=== PATIENT | female | born 1970 | race Caucasian/White ===

== ENCOUNTER → 2019-05-30 15:31 | Outpatient (CLI) | payer OTHER, SELFPAY ==
[2019-05-30 16:04] LABS: Hematocrit 40.3 % (36-46); Hemoglobin 14.2 g/dL (12.0-16.0); Mean Corpuscular HGB Conc 35.2 % (30-36); Mean Corpuscular Hemoglobin 35.9 PG (26-34); Platelet Count 246 X10^3/uL (150-400); Red Blood Cell Count 3.95 X10^6/uL (4.0-5.2); Red Cell Distribution Width 13.3 % (11.6-14.8); White Blood Cell Count 9.4 X10^3/uL (4.5-11.0)
[2019-05-30 16:33] LABS: Alanine Aminotransferase 46 IU/L (9-52); Albumin 4.8 g/dL (3.5-5.0); Albumin Globulin Ratio 1.3 (1.0-2.8); Alkaline Phosphatase 163 U/L (38-126); Aspartate Aminotransferase 84 IU/L (14-36); Blood Urea Nitrogen 11 mg/dL (7-17); Carbon Dioxide 26 mmol/L (22-32); Chloride 95 mmol/L (98-107); Cholesterol 224 mg/dL (140-199); Estimated Glomerular Filt Rate > 60.0 mL/min (>60); Globulin 3.7 g/dL (1.7-4.1); Glucose 94 mg/dL (70-100); HDL Cholesterol 57 mg/dL (40-60); HEMOLYSIS 41 (0-50); LDL Cholesterol Calculated 137 mg/dL (<100); Potassium 4.1 mmol/L (3.4-5.1); Sodium 137 mmol/L (137-145); Total Protein 8.5 g/dL (6.3-8.2); Triglycerides 152 mg/dL (35-150)
[2019-05-30 17:08] LABS: TSH w/ Reflex to FT4 2.66 uIU/mL (0.47-4.68)
== END ==
PROVIDERS: PCP Nurse Practitioner Family; Visit Provider Nurse Practitioner Family
DX: Z00.00 Encounter for general adult medical examination without abnormal findings (principal); L65.9 Nonscarring hair loss, unspecified; R60.0 Localized edema; Z13.6 Encounter for screening for cardiovascular disorders
CPT/HCPCS: 36415; 80053; 80061; 84443; 85027

== ENCOUNTER 2019-10-10 06:31 | Emergency (ER) | payer OTHER, MEDICAID, SELFPAY ==
[2019-10-10] VITALS (9 sets, daily range): BP systolic 137–164; BP diastolic 76–98; PULSE 89–108; RESP 11–21; TEMP 36.7; O2SAT 94–98; BMI 24.3
--- NOTE | 2019-10-10 06:45 | PC.NURSE ---
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
--- NOTE | 2019-10-10 06:46 | PC.NURSE ---
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
[2019-10-10 07:01] LABS: Add Manual Diff / Slide Review NO; Basophils Absolute Auto 0 /uL (0-100); Basophils Percent Auto 0.6 % (0-2); Eosinophils Absolute Auto 100 /uL (0-450); Eosinophils Percent Auto 1.3 % (2-4); Hematocrit 37.5 % (36-46); Hemoglobin 13.2 g/dL (12.0-16.0); Lymphocytes Absolute Auto 1500 /uL (1100-4500); Lymphocytes Percent Auto 18.7 % (25-40); Mean Corpuscular HGB Conc 35.3 % (30-36); Mean Corpuscular Hemoglobin 36.9 PG (26-34); Mean Corpuscular Volume 104.4 fL (80-100); Monocytes Absolute Auto 500 /uL (0-900); Monocytes Percent Auto 6.7 % (3-14); Neutrophils Absolute Auto 5900 /uL (1500-7000); Neutrophils Percent Auto 72.7 % (50-75); Platelet Count 255 X10^3/uL (150-400); Red Blood Cell Count 3.59 X10^6/uL (4.0-5.2); Red Cell Distribution Width 14.8 % (11.6-14.8); White Blood Cell Count 8.1 X10^3/uL (4.5-11.0)
--- NOTE | 2019-10-10 07:02 | ED_ITS ---
HPI - Neuro Symptoms/Deficit <Jacques Hull DO - Last Filed: 10/10/19 07:06> General Chief Complaint: Neuro Symptoms/Deficit Stated Complaint: facial paralysis Time Seen by Provider: 10/10/19 06:42 Source: patient Mode of arrival: Ambulatory Limitations: no limitations History of Present Illness HPI Narrative: 49-year-old female here for evaluation of left-sided facial droop. States that symptoms started approximately 0400 hours last evening. She was sitting on the couch. She thought that she had tingling around the left side of her mouth. She went looked in the mere noticed that the left side of her face was drooping. She feels like it is slightly improved in severity since last evening however she thinks that it is moving up to her left eye. No vision changes. No other neurologic symptoms. Has never had anything like this in the past. No rashes. Has not tried anything for symptoms prior to arrival On Anticoagulants: No Related Data Home Medications Medication Instructions Recorded Confirmed ibuprofen 800 mg tablet 800 mg PO DAILY PRN tab 04/27/19 04/27/19 multivitamin with minerals 1 tab PO DAILY 04/27/19 04/27/19 Previous Rx's Medication Instructions Recorded lisinopril 20 mg tablet 20 mg PO DAILY #90 tab 10/04/19 Allergies Allergy/AdvReac Type Severity Reaction Status Date / Time No Known Allergies Allergy Uncoded 04/27/19 15:40 Review of Systems <Jacques Hull DO - Last Filed: 10/10/19 07:06> Constitutional Constitutional: Denies fever(s), Denies headache(s) and Denies weakness Eyes Eyes: Denies blurry vision, Denies change in vision, Denies diplopia and Denies loss of vision ENT Ears, Nose, Mouth, and Throat: Denies vertigo, Denies dizziness, Denies headache(s), Denies disequilibrium, Denies sinus pressure and Denies sore throat Cardiovascular Cardiovascular: Denies chest pain, Denies palpitations and Denies dyspnea Respiratory Respiratory: Denies cough and Denies dyspnea Gastrointestinal Gastrointestinal: Denies abdominal pain, Denies nausea and Denies vomiting Genitourinary Genitourinary: Denies dysuria and Denies vaginal discharge Musculoskeletal Musculoskeletal: Denies abnormal gait, Denies back pain, Denies myalgias, Denies arthralgias, Reports numbness and Reports tingling Integumentary/Breasts Skin/Breast: Denies lesions and Denies rash Comments: Tingling left-sided face Neurologic Neurologic: Denies abnormal gait, Denies behavioral changes, Denies confusion, Denies vertigo, Denies dizziness, Denies headache(s), Denies focal weakness, Denies loss of vision, Reports numbness, Denies convulsions, Reports tingling, Denies disequilibrium and Denies weakness Psychiatric Psychiatric: Denies behavioral changes and Denies confusion Endocrine Endocrine: Denies palpitations Hematologic/Lymphatic Hematologic/Lymphatic: Denies easy bleeding and Denies easy bruising Patient History <Jacques Hull DO - Last Filed: 10/10/19 07:06> Medical History Chicken pox (Resolved) Surgical History (Updated 06/05/19 @ 19:46 by Tammy Peguero) Anesthesia (Resolved) History of back surgery (Resolved) Social History Smoking Status: Current every day smoker Tobacco: How many years used: 35 quit status: not considering quitting (declines smoking cessation handout) second hand exposure: Yes (work) alcohol intake: current (vodka cocktail 4-5x/week) substance use type: does not use Smoking Status: Current every day smoker alcohol intake frequency: 0-2 drinks per day Alcohol type: hard liquor Substance Use Type: does not use Exam <Jacques Hull DO - Last Filed: 10/10/19 07:06> Initial Vital Signs Initial Vital Signs: Vital Signs Temperature 98.0 F 10/10/19 06:39 Pulse Rate 108 H 10/10/19 06:39 Respiratory Rate 18 10/10/19 06:39 Blood Pressure 164/96 H 10/10/19 06:39 Pulse Oximetry 98 10/10/19 06:39 Const General: cooperative, comfortable, well developed and well groomed Limitations: mental status not altered HENMT Head: normal to inspection and normocephalic Eyes Pupils: PERRL EOM: EOM intact bilaterally Resp Effort & Inspection: normal respiratory effort Auscultation: clear to auscultation bilaterally Cardio Rate: regular rate Rhythm: regular rhythm GI Inspection: non-distended Palpation: soft and No firm Skin Lesions: no lesions Rashes: no rashes Neuro General: alert, awake and oriented x3 Cognition: normal cognition Speech: speech normal Gait: normal gait Motor: muscle tone normal throughout Sensory Exam: no sensory deficits noted Coordination: [id number] test normal Extrem General: normal to inspection, capillary refill normal and No edema Psych Appearance: grossly normal and well kempt <Akil Johnson MD - Last Filed: 10/10/19 07:13> Initial Vital Signs Initial Vital Signs: Vital Signs Temperature 98.0 F 10/10/19 06:39 Pulse Rate 108 H 10/10/19 06:39 Respiratory Rate 18 10/10/19 06:39 Blood Pressure 164/96 H 10/10/19 06:39 Pulse Oximetry 98 10/10/19 06:39 Scores <Jacques Hull DO - Last Filed: 10/10/19 07:06> GCS [place] coma scale eye opening: Spontaneous [place] coma scale verbal response: Orientated [place] coma scale motor response: Obey commands Har[place] coma scale total score: 15 NIH Stroke Scale Level of Conciousness: Alert, keenly responsive Ask month/age: Answers both questions correctly. Open/close eyes, close hand: Performs both tasks correctly Best gaze horizontal: Normal Visual miranda: No visual loss Facial palsy: Minor paralysis, flattened nasolabial fold, asymmetry on smiling Left arm drift: No drift for full 10 sec Right arm drift: No drift for full 10 sec Left leg drift: No drift for full 10 sec Right leg drift: No drift for full 10 sec Limb ataxia: Absent Sensory on face/arms/legs: Mild to moderate sensory loss, can tell touch Best language: No aphasia, normal Dysarthria: Normal Extinction or inattention: No abnormality Total NIH Stroke scale score: 2 Course <Jacques Hull DO - Last Filed: 10/10/19 07:06> Orders Ordered: ED Orders 10/10/19 05:50 C-Reactive Protein Quant Stat Complete Blood Count AUTO DIFF Stat Comprehensive Metabolic Panel Stat Erythrocyte Sedimentation Rate Stat Ethanol (ETOH) Stat Lipase Stat Partial Thromboplastin Time Stat Prothrombin Time INR Stat Thyroid Stimulating Hormone Stat Troponin I Stat 10/10/19 06:44 CT head/brain wo con Stat 10/10/19 06:45 EKG-12 Lead Stat Vital Signs Vital signs: Vital Signs - 8 hr 10/10/19 06:39 10/10/19 07:00 Temperature 98.0 F Pulse Rate 108 H 90 Respiratory Rate 18 13 Blood Pressure 164/96 H Blood Pressure [Right Arm] 164/89 H Pulse Oximetry 98 97 <Akil Johnson MD - Last Filed: 10/10/19 07:13> Orders Ordered: ED Orders 10/10/19 05:50 C-Reactive Protein Quant Stat Complete Blood Count AUTO DIFF Stat Comprehensive Metabolic Panel Stat Erythrocyte Sedimentation Rate Stat Ethanol (ETOH) Stat Lipase Stat Partial Thromboplastin Time Stat Prothrombin Time INR Stat Thyroid Stimulating Hormone Stat Troponin I Stat 10/10/19 06:44 CT head/brain wo con Stat 10/10/19 06:45 EKG-12 Lead Stat Vital Signs Vital signs: Vital Signs - 8 hr 10/10/19 06:39 10/10/19 07:00 Temperature 98.0 F Pulse Rate 108 H 90 Respiratory Rate 18 13 Blood Pressure 164/96 H Blood Pressure [Right Arm] 164/89 H Pulse Oximetry 98 97 MDM - Neuro Symptoms/Deficit <Jacqeus Hull DO - Last Filed: 10/10/19 07:06> Lab Data Result diagrams: 10/10/19 05:50 10/10/19 05:50 Labs: Lab Results 10/10/19 10/10/19 Range/Units 05:50 05:50 WBC 8.1 (4.5-11.0) X10^3/uL RBC 3.59 L (4.0-5.2) X10^6/uL Hgb 13.2 (12.0-16.0) g/dL Hct 37.5 (36-46) % MCV 104.4 H (80-100) fL MCH 36.9 H (26-34) PG MCHC 35.3 (30-36) % RDW 14.8 (11.6-14.8) % Plt Count 255 (150-400) X10^3/uL Neut % (Auto) 72.7 (50-75) % Lymph % (Auto) 18.7 L (25-40) % [place] % (Auto) 6.7 (3-14) % Eos % (Auto) 1.3 L (2-4) % Baso % (Auto) 0.6 (0-2) % Neut # (Auto) 5900 (0502-3198) /uL Lymph # (Auto) 1500 (0618-2385) /uL [place] # (Auto) 500 (0-900) /uL Eos # (Auto) 100 (0-450) /uL Baso # (Auto) 0 (0-100) /uL PT 13.7 H (10.1-12.7) SECONDS INR 1.2 (0.9-1.3) ECG Data Attestation: I personally reviewed and interpreted this ECG as follows: Prior ECG tracings: not available for review Interpretation: Sinus rhythm Ventricular rate of 95 Normal axis Normal QRS Normal QTC No ST T wave changes MDM Narrative Medical decision making narrative: Patient's symptoms have been going on for 15 hours. She does think that they have been slightly improving since last evening. Does have decreased sensation to the middle and lower branches of the left facial nerve and also dripping left side of her face. Minimal with any involvement of the left forehead. Otherwise normal neurologic exam. CT scan ordered. Care turned over at change of shift to Dr. johnson to follow-up on CT scan and disposition. <Akil Johnson MD - Last Filed: 10/10/19 07:13> Lab Data Labs: Lab Results 10/10/19 10/10/19 Range/Units 05:50 05:50 WBC 8.1 (4.5-11.0) X10^3/uL RBC 3.59 L (4.0-5.2) X10^6/uL Hgb 13.2 (12.0-16.0) g/dL Hct 37.5 (36-46) % MCV 104.4 H (80-100) fL MCH 36.9 H (26-34) PG MCHC 35.3 (30-36) % RDW 14.8 (11.6-14.8) % Plt Count 255 (150-400) X10^3/uL Neut % (Auto) 72.7 (50-75) % Lymph % (Auto) 18.7 L (25-40) % [place] % (Auto) 6.7 (3-14) % Eos % (Auto) 1.3 L (2-4) % Baso % (Auto) 0.6 (0-2) % Neut # (Auto) 5900 (6961-1782) /uL Lymph # (Auto) 1500 (4548-5889) /uL [place] # (Auto) 500 (0-900) /uL Eos # (Auto) 100 (0-450) /uL Baso # (Auto) 0 (0-100) /uL PT 13.7 H (10.1-12.7) SECONDS INR 1.2 (0.9-1.3) Discharge Plan Departure Prescriptions: No Action lisinopril 20 mg tablet 20 mg PO DAILY Qty: 90 RF: 0 ibuprofen 800 mg tablet 800 mg PO DAILY PRNRF: 0 multivitamin with minerals [Hair,Skin and Nails] tablet 1 tab PO DAILY RF: 0
[2019-10-10 07:10] LABS: INR 1.2 (0.9-1.3); Prothrombin Time 13.7 SECONDS (10.1-12.7)
[2019-10-10 07:13] LABS: PTT Partial Thromboplastin Tim 34 SECONDS (26.4-36.2)
[2019-10-10 07:15] LABS: Alanine Aminotransferase 41 IU/L (<35); Albumin 4.6 g/dL (3.5-5.0); Albumin Globulin Ratio 1.1 (1.0-2.8); Alkaline Phosphatase 212 U/L (38-126); Aspartate Aminotransferase 125 IU/L (14-36); Bilirubin Total 0.7 mg/dL (0.2-1.3); Blood Urea Nitrogen 8 mg/dL (7-17); Carbon Dioxide 23 mmol/L (22-32); Chloride 102 mmol/L (98-107); Estimated Glomerular Filt Rate > 60.0 mL/min (>60); Ethanol (ETOH) 65 mg/dL; Globulin 4.1 g/dL (1.7-4.1); Glucose 147 mg/dL (70-100); HEMOLYSIS 63 (0-50); Lipase 177 U/L (23-300); Potassium 3.5 mmol/L (3.4-5.1); Sodium 140 mmol/L (137-145); Total Protein 8.7 g/dL (6.3-8.2)
[2019-10-10 07:18] LABS: C-Reactive Protein Quant 1.1 mg/dL (<1.0)
[2019-10-10 07:21] LABS: Erythrocyte Sedimentation Rate 26 MM/HR (0-20)
[2019-10-10 07:26] LABS: Troponin I < 0.012 ng/mL (0.01-0.034)
[2019-10-10 07:45] LABS: Thyroid Stimulating Hormone 0.32 uIU/mL (0.47-4.68)
--- NOTE | 2019-10-10 07:59 | DI.CT.S_ITS ---
PROCEDURE: CT HEAD/BRAIN WO CON INDICATIONS: L side facial droop TECHNIQUE: Noncontrast 4.5 mm thick angled axial sections acquired from the foramen magnum to the vertex, with coronal and sagittal reformats. For radiation dose reduction, the following was used: automated exposure control, adjustment of mA and/or kV according to patient size. COMPARISON: None. FINDINGS: Image quality: Excellent. CSF spaces: Basal cisterns are patent. No extra-axial fluid collections. Ventricles are normal in size and shape. Brain: No midline shift. No intracranial masses or hemorrhage. [place]-white matter interface is normal. Mild atherosclerotic calcifications involving the cavernous carotids. Skull and face: Calvarium and visualized facial bones are intact, without suspicious lesions. Sinuses: Visualized sinuses and mastoids are clear. IMPRESSION: 1. No evidence acute stroke, hemorrhage, or mass. 2. ASCVD Comment: Consider brain MRI if suspect acute infarct. Dictated by: Nash Cheney M.D. on 10/10/2019 at 7:58 Approved by: Nash Cheney M.D. on 10/10/2019 at 8:01
--- NOTE | 2019-10-10 09:21 | ED_ITS ---
HPI - Neuro Symptoms/Deficit General Chief Complaint: Neuro Symptoms/Deficit Stated Complaint: facial paralysis Time Seen by Provider: 10/10/19 06:42 Source: patient Mode of arrival: Ambulatory History of Present Illness HPI Narrative: The patient is a 49-year-old female who has a history of hypertension. Report was given to me by who evaluated the patient and ordered the CT scan. The CT scan of her head did not reveal any acute stroke or hemorrhage. The history provided was that the patient developed tingling in the left cheek at about 4:00 p.m. yesterday. She noticed that she had some drooping of her mouth. She woke up this morning and thought that it had improved but had continued decreased sensation more in her face. Her NIH stroke scale was 2. She has had no rash no change in vision no headache. She has had a history of chickenpox. She was initially tachycardic in triage. Initially she had no involvement of her forehead. On Anticoagulants: No Related Data Home Medications Medication Instructions Recorded Confirmed lisinopril 20 mg PO QPM 10/10/19 10/10/19 Allergies Allergy/AdvReac Type Severity Reaction Status Date / Time No Known Drug Allergies Allergy Verified 10/10/19 10:33 Review of Systems Review of Systems Narrative: The patient's review of systems are all negative except for those mentioned in the history of present illness. Constitutional Constitutional: Denies headache(s) and Denies weakness Eyes Eyes: Denies loss of vision ENT Ears, Nose, Mouth, and Throat: Denies vertigo, Denies dizziness, Denies headache(s) and Denies disequilibrium Musculoskeletal Musculoskeletal: Denies abnormal gait, Reports numbness and Reports tingling Neurologic Neurologic: Denies abnormal gait, Denies behavioral changes, Denies confusion, Denies vertigo, Denies dizziness, Denies headache(s), Denies focal weakness, Denies loss of vision, Reports numbness, Denies convulsions, Reports tingling, Denies disequilibrium and Denies weakness Psychiatric Psychiatric: Denies behavioral changes and Denies confusion Patient History Medical History Chicken pox (Resolved) Surgical History Anesthesia (Resolved) History of back surgery (Resolved) Social History Smoking Status: Current every day smoker Tobacco: How many years used: 35 quit status: not considering quitting (declines smoking cessation handout) second hand exposure: Yes (work) alcohol intake: current (vodka cocktail 4-5x/week) substance use type: does not use Smoking Status: Current every day smoker alcohol intake frequency: 0-2 drinks per day Alcohol type: hard liquor Substance Use Type: does not use Exam Narrative Exam Narrative: PHYSICAL EXAM: CONSTITUTIONAL: Awake, Alert, Oriented, Coherent, Cooperative in NAD. Does not appear toxic or ill. HEAD: AT/NC EENT: PERRL, FROM of eyes, no discharge, no nystagmus No drainage from the ears, Tympanic membranes intact bilaterally, clear EAC No epistaxis or nasal drainage Oral mucosa is moist and pink, posterior pharynx is without erythema or exudate. The patient has symmetrical movement of her eyebrows and her forehead. She is able to close her eyes tightly. Her smile appears to be a little bit decreased an asymmetrical on her left side. She seems to move her left upper lip less than on the right. She is able to puff upper cheeks but not as prominent as on the right. There's remains slight asymmetry but the patient states that her symptoms are significantly improving. Her face still feels numb. NECK: Supple, no obvious JVD, Trachea is midline without stridor, no palpable LN or masses. SPINE: No gross deformity, no palpable tenderness of the cervical, thoracic, lumbar or sacral spine. No CVA tenderness. THORAX: No deformity, retractions, chest wall tenderness, subcutaneous air or crepitice. LUNGS: Clear with symmetrical breath sounds without respiratory distress HEART: Normal heart tones, regular rhythm and rate without murmur. ABDOMEN: Soft, non-tender, normal bowel sounds without guarding, rebound, rigidity or palpable mass or organomegaly. EXTREMITIES: No edema, cyanosis, deformity or tenderness. SKIN: No rash, bruising, petechiae or purpura. NEURO: Awake, alert, oriented, conversive, cranial nerves II-XII are symmetrical and normal, moves all 4 extremities and is ambulatory Initial Vital Signs Initial Vital Signs: Vital Signs Temperature 98.0 F 10/10/19 06:39 Pulse Rate 108 H 10/10/19 06:39 Respiratory Rate 18 10/10/19 06:39 Blood Pressure 164/96 H 10/10/19 06:39 Pulse Oximetry 98 10/10/19 06:39 Course Course Course Narrative: 0937 I have called the patient's physician Dr. george guevara to consider admitting the patient for an MRI and further evaluation. Her NIH stroke scale is at most 2. Her symptoms seem to be really improving. Her EKG obtained on October 10 at 6:58 a.m. reveals a normal sinus rhythm without any acute diagnostic ST segment changes. The patient has T-wave inversions in V1 but no other acute changes. Her EKG otherwise looks normal. [address] Lala who is on-call for Dr. ruiz lema who states call the hospitalist to admit this patient. 1004 admit observation on telemetry to Dr. kingsley Orders Ordered: ED Orders 10/10/19 05:50 C-Reactive Protein Quant Stat Complete Blood Count AUTO DIFF Stat Comprehensive Metabolic Panel Stat Erythrocyte Sedimentation Rate Stat Ethanol (ETOH) Stat Lipase Stat Partial Thromboplastin Time Stat Prothrombin Time INR Stat Thyroid Stimulating Hormone Stat Troponin I Stat 10/10/19 06:45 EKG-12 Lead Stat 10/10/19 07:59 CT head/brain wo con Stat Vital Signs Vital signs: Vital Signs - 8 hr 10/10/19 06:39 10/10/19 07:00 10/10/19 07:30 Temperature 98.0 F Pulse Rate 108 H 90 98 H Respiratory Rate 18 13 15 Blood Pressure 164/96 H Blood Pressure [Right Arm] 164/89 H 139/98 H Pulse Oximetry 98 97 98 10/10/19 08:00 10/10/19 08:30 10/10/19 09:04 Temperature Pulse Rate 89 93 H 94 H Respiratory Rate 17 15 14 Blood Pressure Blood Pressure [Right Arm] 140/78 138/76 145/90 H Pulse Oximetry 94 96 97 10/10/19 09:33 Temperature Pulse Rate 97 H Respiratory Rate 11 L Blood Pressure Blood Pressure [Right Arm] 151/87 H Pulse Oximetry 97 MDM - Neuro Symptoms/Deficit Lab Data Result diagrams: 10/10/19 05:50 10/10/19 05:50 Labs: Lab Results 10/10/19 10/10/19 10/10/19 Range/Units 05:50 05:50 05:50 WBC 8.1 (4.5-11.0) X10^3/uL RBC 3.59 L (4.0-5.2) X10^6/uL Hgb 13.2 (12.0-16.0) g/dL Hct 37.5 (36-46) % MCV 104.4 H (80-100) fL MCH 36.9 H (26-34) PG MCHC 35.3 (30-36) % RDW 14.8 (11.6-14.8) % Plt Count 255 (150-400) X10^3/uL Neut % (Auto) 72.7 (50-75) % Lymph % (Auto) 18.7 L (25-40) % Person % (Auto) 6.7 (3-14) % Eos % (Auto) 1.3 L (2-4) % Baso % (Auto) 0.6 (0-2) % Neut # (Auto) 5900 (9577-7002) /uL Lymph # (Auto) 1500 (4086-4618) /uL Person # (Auto) 500 (0-900) /uL Eos # (Auto) 100 (0-450) /uL Baso # (Auto) 0 (0-100) /uL ESR (0-20) MM/HR PT 13.7 H (10.1-12.7) SECONDS INR 1.2 (0.9-1.3) APTT 34 (26.4-36.2) SECONDS Sodium 140 (137-145) mmol/L Potassium 3.5 (3.4-5.1) mmol/L Chloride 102 (98-107) mmol/L Carbon Dioxide 23 (22-32) mmol/L BUN 8 (7-17) mg/dL Creatinine 0.40 L (0.52-1.04) mg/dL Estimated GFR > 60.0 (>60) mL/min BUN/Creatinine Ratio 20.0 (6-22) Glucose 147 H (70-100) mg/dL Calcium 10.0 (8.4-10.2) mg/dL Total Bilirubin 0.7 (0.2-1.3) mg/dL AST 125 H (14-36) IU/L ALT 41 H (<35) IU/L Alkaline Phosphatase 212 H (38-126) U/L Troponin I (0.01-0.034) ng/mL C-Reactive Protein (<1.0) mg/dL Total Protein 8.7 H (6.3-8.2) g/dL Albumin 4.6 (3.5-5.0) g/dL Globulin 4.1 (1.7-4.1) g/dL Albumin/Globulin Ratio 1.1 (1.0-2.8) Lipase 177 (23-300) U/L TSH (0.47-4.68) uIU/mL Ethyl Alcohol 65 H ( - 10) mg/dL 10/10/19 10/10/19 10/10/19 Range/Units 05:50 05:50 05:50 WBC (4.5-11.0) X10^3/uL RBC (4.0-5.2) X10^6/uL Hgb (12.0-16.0) g/dL Hct (36-46) % MCV (80-100) fL MCH (26-34) PG MCHC (30-36) % RDW (11.6-14.8) % Plt Count (150-400) X10^3/uL Neut % (Auto) (50-75) % Lymph % (Auto) (25-40) % Person % (Auto) (3-14) % Eos % (Auto) (2-4) % Baso % (Auto) (0-2) % Neut # (Auto) (8210-8960) /uL Lymph # (Auto) (8298-9360) /uL Person # (Auto) (0-900) /uL Eos # (Auto) (0-450) /uL Baso # (Auto) (0-100) /uL ESR 26 H (0-20) MM/HR PT (10.1-12.7) SECONDS INR (0.9-1.3) APTT (26.4-36.2) SECONDS Sodium (137-145) mmol/L Potassium (3.4-5.1) mmol/L Chloride (98-107) mmol/L Carbon Dioxide (22-32) mmol/L BUN (7-17) mg/dL Creatinine (0.52-1.04) mg/dL Estimated GFR (>60) mL/min BUN/Creatinine Ratio (6-22) Glucose (70-100) mg/dL Calcium (8.4-10.2) mg/dL Total Bilirubin (0.2-1.3) mg/dL AST (14-36) IU/L ALT (<35) IU/L Alkaline Phosphatase (38-126) U/L Troponin I < 0.012 (0.01-0.034) ng/mL C-Reactive Protein (<1.0) mg/dL Total Protein (6.3-8.2) g/dL Albumin (3.5-5.0) g/dL Globulin (1.7-4.1) g/dL Albumin/Globulin Ratio (1.0-2.8) Lipase (23-300) U/L TSH 0.32 L (0.47-4.68) uIU/mL Ethyl Alcohol ( - 10) mg/dL 10/10/19 Range/Units 05:50 WBC (4.5-11.0) X10^3/uL RBC (4.0-5.2) X10^6/uL Hgb (12.0-16.0) g/dL Hct (36-46) % MCV (80-100) fL MCH (26-34) PG MCHC (30-36) % RDW (11.6-14.8) % Plt Count (150-400) X10^3/uL Neut % (Auto) (50-75) % Lymph % (Auto) (25-40) % Person % (Auto) (3-14) % Eos % (Auto) (2-4) % Baso % (Auto) (0-2) % Neut # (Auto) (2343-1078) /uL Lymph # (Auto) (4302-2790) /uL Person # (Auto) (0-900) /uL Eos # (Auto) (0-450) /uL Baso # (Auto) (0-100) /uL ESR (0-20) MM/HR PT (10.1-12.7) SECONDS INR (0.9-1.3) APTT (26.4-36.2) SECONDS Sodium (137-145) mmol/L Potassium (3.4-5.1) mmol/L Chloride (98-107) mmol/L Carbon Dioxide (22-32) mmol/L BUN (7-17) mg/dL Creatinine (0.52-1.04) mg/dL Estimated GFR (>60) mL/min BUN/Creatinine Ratio (6-22) Glucose (70-100) mg/dL Calcium (8.4-10.2) mg/dL Total Bilirubin (0.2-1.3) mg/dL AST (14-36) IU/L ALT (<35) IU/L Alkaline Phosphatase (38-126) U/L Troponin I (0.01-0.034) ng/mL C-Reactive Protein 1.1 H (<1.0) mg/dL Total Protein (6.3-8.2) g/dL Albumin (3.5-5.0) g/dL Globulin (1.7-4.1) g/dL Albumin/Globulin Ratio (1.0-2.8) Lipase (23-300) U/L TSH (0.47-4.68) uIU/mL Ethyl Alcohol ( - 10) mg/dL Discharge Plan Departure Patient Disposition: Left Against Medical Advice Clinical Impression: Cerebrovascular accident Discharge Date/Time: 10/10/19 11:47 Prescriptions: No Action lisinopril 20 mg tablet 20 mg PO QPM RF: 0 Referrals: Saskia Howell ARNP [Primary Care Provider] - Stand Alone Forms: Against Medical Advice
== END 2019-10-10 11:47 | disposition left against medical advice (07) ==
LOC: ED 10:07 → AC 10:22 → ED 11:47
PROVIDERS: Emergency Medicine; Emergency Provider Emergency Medicine; PCP Nurse Practitioner Family
DX: I63.9 Cerebral infarction, unspecified (principal); R07.9 Chest pain, unspecified
CPT/HCPCS: 36415; 70450; 80053; 80320; 83690; 84443; 84484; 85025; 85610; 85651; 85730; 86140; 93005; 99285

== ENCOUNTER → 2019-10-28 15:35 | Outpatient (CLI) | payer OTHER, MEDICAID, SELFPAY ==
--- NOTE | 2019-10-28 15:39 | DI.ECHO.S_ITS ---
[facility] +---------+ : : [address] : : : : [id number] : : : : Phone: [phone]---------+ Echocardiogram Report + + :Name: KAYLA GUTIERREZ Study Date: 10/28/2019 Height: 69 in : :[facility] Weight: 155 lb : : Gender: Female BSA: 1.9 m2 : :: 1970 Age: 49 yrs BP: 165/90 mmHg: :Reason For Study: CVA : : Performed By: Denise Page : :Referring: JANKI LANGFORD : + + Interpretation Summary Normal sinus rhythm. Normal LV size, wall thickness, wall motion and LV systolic function. EF is 60-65%. Mild biatrial enlargement; there is a small PFO versus pulmonary avm given 3 bubbles in the LV 4 beats after Valsalva maneuver. No prior study available for comparison. Procedure: A two-dimensional transthoracic echocardiogram with color flow and Doppler was performed. The study quality was technically good. There is no prior echocardiogram noted for this patient. A saline contrast injection was performed to assess for cardiac shunting. The patient was in normal sinus rhythm during the exam. Left Ventricle: The left ventricle is normal in size, wall thickness, and systolic function without any focal wall motion abnormalities. The ejection fraction is estimated to be 60-65%. Right Ventricle: The right ventricle is borderline dilated. The right ventricular systolic function is normal. Atria: Both atria are mildly dilated. Injection of contrast documented an interatrial shunt. Bubbles are appear in the left ventricle 4 beats after Valsalva. Mitral Valve: The mitral valve is normal in structure and function. There is mild mitral annular calcification. There is trace mitral regurgitation. Aortic Valve: The aortic valve is trileaflet. The aortic valve opens well. No aortic regurgitation is present. Tricuspid Valve: The tricuspid valve is normal in structure and function. There is a trace or physiologic amount of tricuspid regurgitation. The right ventricular systolic pressure is estimated to be at least 29 mmHg based on an estimated right atrial pressure of 8 mm Hg. Pulmonic Valve: The pulmonic valve is not well visualized. There is a trace or physiologic amount of pulmonic regurgitation. Great Vessels: The aortic root is normal size. The ascending aorta is normal in size. The pulmonary artery is not well visualized, but is probably normal size. The IVC is of normal diameter and collapses less than 50% with a sniff. This suggests a right atrial pressure of 8 mm Hg. Pericardium/ Pleura There is no pericardial effusion. There is no pleural effusion. MMode/2D Measurements & Calculations LVIDd: 4.5 cm LVOT diam: 2.0 cm LVIDs: 3.4 cm Ao root diam: 3.5 cm FS: 23.8 % asc Aorta Diam: 3.2 cm EPSS: 0.49 cm IVSd: 1.00 cm LVPWd: 0.74 cm LV cotter. diameter/BSA (cm/m^2): 2.4 LV sys. diameter/BSA (cm/m^2): 1.9 LA A2 area: 19.9 cm2 RA long axis: 4.3 cm LA A4 area: 21.1 cm2 RA area: 17.2 cm2 LA length (vol): 5.0 cm RA vol: 58.3 ml LA vol: 70.7 ml RA : 31.5 ml/m2 LA vol index: 38.1 ml/m2 IVC diam: 1.8 cm RVD1 (basal): 4.0 cm RVD2 (mid): 4.2 cm TAPSE: 2.0 cm Doppler Measurements & Calculations Ao V2 max: 138.5 cm/sec MV E max jaya: 94.7 cm/sec Ao V2 mean: 102.5 cm/sec MV A max jaya: 92.0 cm/sec Ao max P.7 mmHg MV E/A: 1.0 Ao mean P.5 mmHg Med Peak E' Jaya: 7.3 cm/sec Ao V2 VTI: 31.9 cm E/E' med: 13.0 Lat Peak E' Jaya: 8.4 cm/sec E/E' lat: 11.2 E/e' average: 12.1 MV dec time: 0.16 sec MV P1/2t: 47.8 msec TR max jaya: 226.7 cm/sec MV P1/2t max jaya: 95.8 cm/sec TR max P.6 mmHg MVA(P1/2t): 4.6 cm2 PA V2 max: 97.5 cm/sec PA V2 mean: 76.5 cm/sec PA mean P.4 mmHg PA Accel Time: 0.15 sec Electronically signed by: Rizwana Newby M.D. on Reading Physician:10/28/2019 06:46 PM
== END ==
PROVIDERS: PCP Nurse Practitioner Family; Referring Provider Nurse Practitioner Family; Visit Provider Nurse Practitioner Family
DX: I63.9 Cerebral infarction, unspecified (principal)
CPT/HCPCS: 93306

== ENCOUNTER → 2019-11-01 15:25 | Outpatient (CLI) | payer OTHER, MEDICAID, SELFPAY ==
--- NOTE | 2019-11-01 15:27 | DI.MG.S_ITS ---
BILATERAL DIGITAL SCREENING MAMMOGRAM 3D/2D WITH CAD: 11/01/2019 CLINICAL: Routine screening. Comparison is made to exams dated: 08/21/2016 mammogram and 08/30/2013 mammogram - [facility]. The tissue of both breasts is heterogeneously dense. This may lower the sensitivity of mammography. Current study was also evaluated with a Computer Aided Detection (CAD) system. There is a focal asymmetry in the left breast at 12 o'clock in the retroareolar region. This is more prominent. No other significant masses, calcifications, or other findings are seen in either breast. IMPRESSION: INCOMPLETE: NEEDS ADDITIONAL IMAGING EVALUATION The focal asymmetry in the left breast is indeterminate. Additional views with possible ultrasound are recommended. This exam was interpreted at Station ID: [id number]. NOTE: For mammograms, a report in lay terms will be sent to the patient. Approximately 15% of breast malignancies will not be visualized mammographically. In the management of a palpable breast mass, a negative mammogram must not discourage biopsy of a clinically suspicious lesion. Electronically Signed By: Zak snell/jemal:11/02/2019 19:35:14 letter sent: Additional Imaging Needed ACR BI-RADS Category 0: Incomplete 3340F
--- NOTE | 2019-11-01 15:27 | DI.MRI.S_ITS ---
PROCEDURE: MR HEAD/BRAIN WO/W CON INDICATIONS: CVA TECHNIQUE: Noncontrast axial T1 spin echo, axial T2 fast spin echo, sagittal and axial FLAIR, coronal T2 fast spin echo, axial gradient echo, axial diffusion and ADC through the brain. After the administration of contrast, axial and coronal 3D VIBE or T1 spin echo with fat saturation through the brain. COMPARISON: [facility], CT, CT HEAD/BRAIN WO CON, 10/10/2019, 7:05. FINDINGS: Image quality: Excellent. CSF Spaces: Basal cisterns are patent. No extra-axial fluid collections. Ventricles are normal in size and shape. Brain: No midline shift. No intracranial bleeds or masses. No abnormal intracranial enhancement. The brainstem appears normal. Diffusion-weighted images demonstrate no acute ischemic insults. No chronic ischemic insults. Normal intravascular flow voids are present. Skull and face: Calvarial marrow is normal in signal. Orbits appear normal. Sinuses: Sinuses and mastoids appear clear. IMPRESSION: No findings of acute or subacute infarction can be seen. No masses or abnormal enhancement can be seen. Dictated by: Thom Presley M.D. on 11/01/2019 at 15:32 Approved by: Thom Presley M.D. on 11/01/2019 at 15:33
== END ==
PROVIDERS: PCP Nurse Practitioner Family; Referring Provider Nurse Practitioner Family; Visit Provider Nurse Practitioner Family
DX: I63.9 Cerebral infarction, unspecified (principal); Z12.31 Encounter for screening mammogram for malignant neoplasm of breast
CPT/HCPCS: 70553; 77063; 77067

== ENCOUNTER → 2019-11-18 09:11 | Outpatient (CLI) | payer OTHER, SELFPAY ==
--- NOTE | 2019-11-18 | DI.MG.S_ITS ---
UNILATERAL LEFT DIGITAL DIAGNOSTIC MAMMOGRAM 3D/2D WITH ADDITIONAL VIEWS: 11/18/2019 CLINICAL: Additional evaluation requested from prior study. Comparison is made to exams dated: 11/01/2019 mammogram - [facility], 08/21/2016 mammogram, and 08/30/2013 mammogram - [facility]. The tissue of left breast is heterogeneously dense. This may lower the sensitivity of mammography. The focal asymmetry in the left breast at 12 o'clock in the retroareolar region is no longer seen. This could not be confirmed with additional views. No other significant masses or calcifications are seen in the breast. IMPRESSION: INCOMPLETE: NEEDS ADDITIONAL IMAGING EVALUATION An ultrasound is recommended to confirm resolution of the focal asymmetry in the left breast in the retroareolar region. This was performed immediately following this exam. This exam was interpreted at Station ID: [id number]. NOTE: For mammograms, a report in lay terms will be sent to the patient. Approximately 15% of breast malignancies will not be visualized mammographically. In the management of a palpable breast mass, a negative mammogram must not discourage biopsy of a clinically suspicious lesion. Electronically Signed By: Patience skinner/:11/18/2019 09:53:56 ACR BI-RADS Category 0: Incomplete 3340F
--- NOTE | 2019-11-18 09:13 | DI.US.S_ITS ---
LIMITED ULTRASOUND OF LEFT BREAST: 11/18/2019 CLINICAL: Patient returns today to evaluate a focal asymmetry in the left breast. Comparison is made to exams dated: 11/18/2019 mammogram, 11/01/2019 mammogram - [facility], 08/21/2016 mammogram, and 08/30/2013 mammogram - [facility]. Real-time ultrasound of the left breast 10-2 o'clock, and retroareolar regions was performed. Bradshaw scale images of the real-time examination were reviewed. No significant abnormalities were seen sonographically in the left breast. Specifically, no finding to correspond to the patient's screening mammogram abnormality. IMPRESSION: NEGATIVE There is no sonographic correlate to the patient's screening mammogram abnormality that resolved in additional views. No evidence of malignancy. Return to annual mammogram screening schedule is recommended. Findings and recommendations were conveyed to the patient at time of exam. This exam was interpreted at Station ID: [id number]. Electronically Signed By: Patience skinner/:11/18/2019 09:56:32 letter sent: Normal Exam Ultrasound BI-RADS: 1 Negative
== END ==
PROVIDERS: PCP Nurse Practitioner Family; Referring Provider Nurse Practitioner Family; Visit Provider Nurse Practitioner Family
DX: R92.8 Other abnormal and inconclusive findings on diagnostic imaging of breast (principal); N64.89 Other specified disorders of breast
CPT/HCPCS: 76642; 77065; G0279

== ENCOUNTER 2020-02-08 11:52 | Emergency (ER) | payer OTHER, SELFPAY ==
[2020-02-08] VITALS (11 sets, daily range): BP systolic 104–166; BP diastolic 57–88; PULSE 97–125; RESP 14–29; TEMP 37.5; O2SAT 93–99; BMI 25.7
[2020-02-08 12:18] LABS: Add Manual Diff / Slide Review NO; Basophils Absolute Auto 100 /uL (0-100); Basophils Percent Auto 0.3 % (0-2); Eosinophils Absolute Auto 100 /uL (0-450); Eosinophils Percent Auto 0.4 % (2-4); Hematocrit 29.9 % (36-46); Hemoglobin 10.7 g/dL (12.0-16.0); Lymphocytes Absolute Auto 2600 /uL (1100-4500); Lymphocytes Percent Auto 14.9 % (25-40); Mean Corpuscular HGB Conc 35.7 % (30-36); Mean Corpuscular Hemoglobin 38.3 PG (26-34); Mean Corpuscular Volume 107.3 fL (80-100); Monocytes Absolute Auto 1200 /uL (0-900); Monocytes Percent Auto 6.7 % (3-14); Neutrophils Absolute Auto 13800 /uL (1500-7000); Neutrophils Percent Auto 77.7 % (50-75); Platelet Count 357 X10^3/uL (150-400); Red Blood Cell Count 2.79 X10^6/uL (4.0-5.2); Red Cell Distribution Width 13.4 % (11.6-14.8); White Blood Cell Count 17.8 X10^3/uL (4.5-11.0)
[2020-02-08 12:27] LABS: INR 1.5 (0.9-1.3); Prothrombin Time 17.3 SECONDS (10.1-12.7)
[2020-02-08 12:29] LABS: Alanine Aminotransferase 31 IU/L (<35); Albumin 3.4 g/dL (3.5-5.0); Albumin Globulin Ratio 0.8 (1.0-2.8); Alkaline Phosphatase 341 U/L (38-126); Amylase 53 U/L (30-110); Aspartate Aminotransferase 112 IU/L (14-36); BUN Creatinine Ratio 31.6 (6-22); Bilirubin Total 1.3 mg/dL (0.2-1.3); Bilirubin Unconjugated 0.6 mg/dL (0.0-1.1); Blood Urea Nitrogen 12 mg/dL (7-17); Calcium 8.8 mg/dL (8.4-10.2); Carbon Dioxide 22 mmol/L (22-32); Chloride 90 mmol/L (98-107); Estimated Glomerular Filt Rate > 60.0 mL/min (>60); Ethanol (ETOH) 13 mg/dL; Globulin 4.3 g/dL (1.7-4.1); Glucose 102 mg/dL (70-100); HEMOLYSIS 16 (0-50); Lipase 87 U/L (23-300); PTT Partial Thromboplastin Tim 34 SECONDS (26.4-36.2); Potassium 3.9 mmol/L (3.4-5.1); Sodium 127 mmol/L (137-145); Total Protein 7.7 g/dL (6.3-8.2)
--- NOTE | 2020-02-08 12:29 | ED_ITS ---
HPI - Abdominal Pain <EVELYN Saleem - Last Filed: 02/08/20 18:50> General Chief Complaint: Abdominal Pain Stated Complaint: losing weight/distended abd x7 days Time Seen by Provider: 02/08/20 12:03 Source: patient Mode of arrival: Ambulatory Limitations: no limitations History of Present Illness HPI narrative: The patient is a 49-year-old female of CVA who presents with a chief complaint of 6 weeks of abdominal distention that is getting progressively worse. She states she feels as though she looks like she is with twins. She does note that she has recently significantly increased her alcohol consumption and to at least 6 vodka drinks a day. She states she has been vomiting at night, thinks she has vomited blood x2. She feels warm at times some flushed at times. She denies any chest pain or shortness of breath. She comes to the emergency department today because her distended abdomen is causing her great discomfort. Related Data Previous Rx's Medication Instructions Recorded amlodipine 5 mg tablet 5 mg PO DAILY #60 tab 11/22/19 Allergies Allergy/AdvReac Type Severity Reaction Status Date / Time losartan AdvReac Intermediate Feels Verified 11/22/19 14:09 dopey, spaced out, sore throat, runny nose. lisinopril AdvReac Mild cough Verified 11/15/19 15:06 Review of Systems <EVELYN Saleem - Last Filed: 02/08/20 18:50> Review of Systems Narrative: GENERAL: See HPI HEENT: Denies sinus pain, ear pain, sore throat, difficulty swallowing, dizziness. RESPIRATORY: Denies dyspnea, cough, wheezing, hemoptysis, sputum. CARDIOVASCULAR: Denies chest pain, palpitations, orthopnea, edema, GASTROINTESTINAL: See HPI : Denies dysuria, frequency, incontinence, hematuria, urinary retention. MUSCULOSKELETAL: denies weakness, joint pain, or bony pain SKIN: Denies rash, skin lesions, or other NEUROLOGIC: Denies weakness, headache, numbness, change in speech, confusion, seizures, incoordination. PSYCHIATRIC: No concerning psychosocial issues. 12 point review of systems is negative except for those stated above Patient History <EVELYN Saleem - Last Filed: 02/08/20 18:50> Medical History Chicken pox (Resolved) Surgical History Anesthesia (Resolved) History of back surgery (Resolved) Social History Smoking Status: Current every day smoker Tobacco: How many years used: 35 quit status: not considering quitting (declines smoking cessation handout) second hand exposure: Yes (work) alcohol intake: current (vodka cocktail 4-5x/week) substance use type: does not use Smoking Status: Current every day smoker alcohol intake frequency: 3 or more drinks per day Alcohol type: hard liquor Substance Use Type: does not use Exam <ANA Saleem - Last Filed: 02/08/20 18:50> Narrative Exam Narrative: GENERAL: Thin female, HEAD: Atraumatic. Normocephalic. No temporal or scalp tenderness. EYES: Pupils equal round and reactive. Extraocular motions intact. No scleral icterus. No injection or drainage. ENT: Nose without bleeding, purulent drainage or septal hematoma. Throat without erythema, tonsillar hypertrophy or exudate. Uvula midline. Airway patent. NECK: Trachea midline. No JVD or lymphadenopathy. Supple, nontender, no meningeal signs. CARDIOVASCULAR: Regular rate and rhythm RESPIRATORY: Clear to auscultation. Breath sounds equal bilaterally. No wheezes, rales, or rhonchi. No cough. No increased respiratory effort. No accessory muscle use. GASTROINTESTINAL: Abdomen distended, skin is tight, generalized pain to palpation EXTREMITIES: No clubbing, cyanosis, or edema. No joint tenderness, effusion, or edema noted. BACK: Nontender without deformity or crepitance. No flank tenderness. NEURO: AOx3. SKIN: No rash or erythema on visible skin Initial Vital Signs Initial Vital Signs: Vital Signs Temperature 99.5 F 02/08/20 12:01 Pulse Rate 125 H 02/08/20 12:01 Respiratory Rate 21 02/08/20 12:01 Blood Pressure 166/88 H 02/08/20 12:01 Pulse Oximetry 99 02/08/20 12:01 <Akil Bishop MD - Last Filed: 02/09/20 07:18> Initial Vital Signs Initial Vital Signs: Vital Signs Temperature 99.5 F 02/08/20 12:01 Pulse Rate 125 H 02/08/20 12:01 Respiratory Rate 21 02/08/20 12:01 Blood Pressure 166/88 H 02/08/20 12:01 Pulse Oximetry 99 02/08/20 12:01 Procedures <ANA Saleem - Last Filed: 02/08/20 18:50> Stool Hemoccult Procedural Steps Taken: stool placed in appropriate test area, developer placed on stool and control areas and controls appropriately positive and negative Hemoccult result: positive Scores <ANA Saleem - Last Filed: 02/08/20 18:50> GCS Haris coma scale eye opening: Spontaneous Haris coma scale verbal response: Orientated Haris coma scale motor response: Obey commands Wayne coma scale total score: 15 Course <ANA Saleem - Last Filed: 02/08/20 18:50> Orders Ordered: Discontinued Medications Sodium Chloride (Normal Saline 0.9%) 1,000 mls @ 1,000 mls/hr IV BOLUS ONE Stop: 02/08/20 13:07 Last Infusion: 02/08/20 23:26 Dose: 1,000 mls/hr Documented by: Admin: 02/08/20 13:23 Dose: 1,000 mls/hr Documented by: WHITNEY Octreotide Acetate 500 mcg/ (Sodium Chloride) 101 mls @ 5.05 mls/hr IV CONT RAOUL; Protocol Last Infusion: 02/08/20 23:27 Dose: 0 mcg/hr, 0 mls/hr Documented by: Admin: 02/08/20 17:54 Dose: 25 mcg/hr, 5.05 mls/hr Documented by: WHITNEY Octreotide Acetate (Sandostatin) 50 mcg IV NOW ONE Stop: 02/08/20 17:28 Last Admin: 02/08/20 17:54 Dose: 50 mcg Documented by: WHITNEY Pantoprazole Sodium (Protonix) 40 mg IV NOW ONE Stop: 02/08/20 12:09 Last Admin: 02/08/20 13:23 Dose: 40 mg Documented by: WHITNEY Vital Signs Vital signs: Vital Signs - 8 hr 02/08/20 12:01 02/08/20 12:20 02/08/20 13:39 Temperature 99.5 F Pulse Rate 125 H 124 H 104 H Respiratory Rate 21 22 15 Blood Pressure 166/88 H Blood Pressure [Right Arm] 133/73 129/73 Pulse Oximetry 99 97 96 02/08/20 14:30 02/08/20 15:18 02/08/20 15:30 Temperature Pulse Rate 106 H 117 H 119 H Respiratory Rate 19 29 H 14 Blood Pressure Blood Pressure [Right Arm] 104/57 L 127/76 129/80 Pulse Oximetry 93 96 95 02/08/20 16:37 02/08/20 17:14 Temperature Pulse Rate 123 H 101 H Respiratory Rate 14 14 Blood Pressure Blood Pressure [Right Arm] 129/80 116/66 Pulse Oximetry 96 94 <Akil Bishop MD - Last Filed: 02/09/20 07:18> Orders Ordered: Discontinued Medications Sodium Chloride (Normal Saline 0.9%) 1,000 mls @ 1,000 mls/hr IV BOLUS ONE Stop: 02/08/20 13:07 Last Infusion: 02/08/20 23:26 Dose: 1,000 mls/hr Documented by: Admin: 02/08/20 13:23 Dose: 1,000 mls/hr Documented by: WHITNEY Octreotide Acetate 500 mcg/ (Sodium Chloride) 101 mls @ 5.05 mls/hr IV CONT RAOUL; Protocol Last Infusion: 02/08/20 23:27 Dose: 0 mcg/hr, 0 mls/hr Documented by: Admin: 02/08/20 17:54 Dose: 25 mcg/hr, 5.05 mls/hr Documented by: WHITNEY Octreotide Acetate (Sandostatin) 50 mcg IV NOW ONE Stop: 02/08/20 17:28 Last Admin: 02/08/20 17:54 Dose: 50 mcg Documented by: WHITNEY Pantoprazole Sodium (Protonix) 40 mg IV NOW ONE Stop: 02/08/20 12:09 Last Admin: 02/08/20 13:23 Dose: 40 mg Documented by: WHITNEY Vital Signs Vital signs: Vital Signs - 8 hr 02/08/20 12:01 02/08/20 12:20 02/08/20 13:39 Temperature 99.5 F Pulse Rate 125 H 124 H 104 H Respiratory Rate 21 22 15 Blood Pressure 166/88 H Blood Pressure [Right Arm] 133/73 129/73 Pulse Oximetry 99 97 96 02/08/20 14:30 02/08/20 15:18 02/08/20 15:30 Temperature Pulse Rate 106 H 117 H 119 H Respiratory Rate 19 29 H 14 Blood Pressure Blood Pressure [Right Arm] 104/57 L 127/76 129/80 Pulse Oximetry 93 96 95 02/08/20 16:37 02/08/20 17:14 Temperature Pulse Rate 123 H 101 H Respiratory Rate 14 14 Blood Pressure Blood Pressure [Right Arm] 129/80 116/66 Pulse Oximetry 96 94 MDM - Abdominal Pain <Hina Mirza, PERSONAL COMPUTER NETWORK ANALYST-BC - Last Filed: 02/08/20 18:50> Lab Data Result diagrams: 02/08/20 12:09 02/08/20 12:09 Labs: Lab Results 02/08/20 02/08/20 02/08/20 Range/Units 12:09 12:09 12:09 WBC 17.8 H (4.5-11.0) X10^3/uL RBC 2.79 L (4.0-5.2) X10^6/uL Hgb 10.7 L (12.0-16.0) g/dL Hct 29.9 L (36-46) % MCV 107.3 H (80-100) fL MCH 38.3 H (26-34) PG MCHC 35.7 (30-36) % RDW 13.4 (11.6-14.8) % Plt Count 357 (150-400) X10^3/uL Neut % (Auto) 77.7 H (50-75) % Lymph % (Auto) 14.9 L (25-40) % [place] % (Auto) 6.7 (3-14) % Eos % (Auto) 0.4 L (2-4) % Baso % (Auto) 0.3 (0-2) % Neut # (Auto) 71425 H (1440-2712) /uL Lymph # (Auto) 2600 (7490-5737) /uL [place] # (Auto) 1200 H (0-900) /uL Eos # (Auto) 100 (0-450) /uL Baso # (Auto) 100 (0-100) /uL PT (10.1-12.7) SECONDS INR (0.9-1.3) APTT (26.4-36.2) SECONDS Sodium 127 L (137-145) mmol/L Potassium 3.9 (3.4-5.1) mmol/L Chloride 90 L (98-107) mmol/L Carbon Dioxide 22 (22-32) mmol/L BUN 12 (7-17) mg/dL Creatinine 0.38 L (0.52-1.04) mg/dL Estimated GFR > 60.0 (>60) mL/min BUN/Creatinine Ratio 31.6 H (6-22) Glucose 102 H (70-100) mg/dL Lactate (0.7-2.1) mmol/L Calcium 8.8 (8.4-10.2) mg/dL Total Bilirubin 1.3 (0.2-1.3) mg/dL Conjugated Bilirubin 0.0 (0.0-0.3) md/dL Unconjugated Bilirubin 0.6 (0.0-1.1) mg/dL AST 112 H (14-36) IU/L ALT 31 (<35) IU/L Alkaline Phosphatase 341 H (38-126) U/L Total Protein 7.7 (6.3-8.2) g/dL Albumin 3.4 L (3.5-5.0) g/dL Globulin 4.3 H (1.7-4.1) g/dL Albumin/Globulin Ratio 0.8 L (1.0-2.8) Amylase 53 (30-110) U/L Lipase 87 (23-300) U/L Procalcitonin (<0.5) ng/mL Serum , Qual (Negative) Ethyl Alcohol 13 H ( - 10) mg/dL Blood Type A Negative Antibody Screen Negative 02/08/20 02/08/20 02/08/20 Range/Units 12:09 12:09 12:09 WBC (4.5-11.0) X10^3/uL RBC (4.0-5.2) X10^6/uL Hgb (12.0-16.0) g/dL Hct (36-46) % MCV (80-100) fL MCH (26-34) PG MCHC (30-36) % RDW (11.6-14.8) % Plt Count (150-400) X10^3/uL Neut % (Auto) (50-75) % Lymph % (Auto) (25-40) % [place] % (Auto) (3-14) % Eos % (Auto) (2-4) % Baso % (Auto) (0-2) % Neut # (Auto) (7921-4735) /uL Lymph # (Auto) (9811-1668) /uL [place] # (Auto) (0-900) /uL Eos # (Auto) (0-450) /uL Baso # (Auto) (0-100) /uL PT 17.3 H (10.1-12.7) SECONDS INR 1.5 H (0.9-1.3) APTT 34 (26.4-36.2) SECONDS Sodium (137-145) mmol/L Potassium (3.4-5.1) mmol/L Chloride (98-107) mmol/L Carbon Dioxide (22-32) mmol/L BUN (7-17) mg/dL Creatinine (0.52-1.04) mg/dL Estimated GFR (>60) mL/min BUN/Creatinine Ratio (6-22) Glucose (70-100) mg/dL Lactate (0.7-2.1) mmol/L Calcium (8.4-10.2) mg/dL Total Bilirubin Cancelled (0.2-1.3) mg/dL Conjugated Bilirubin Cancelled (0.0-0.3) md/dL Unconjugated Bilirubin Cancelled (0.0-1.1) mg/dL AST Cancelled (14-36) IU/L ALT Cancelled (<35) IU/L Alkaline Phosphatase Cancelled (38-126) U/L Total Protein Cancelled (6.3-8.2) g/dL Albumin Cancelled (3.5-5.0) g/dL Globulin Cancelled (1.7-4.1) g/dL Albumin/Globulin Ratio Cancelled (1.0-2.8) Amylase (30-110) U/L Lipase (23-300) U/L Procalcitonin (<0.5) ng/mL Serum , Qual (Negative) Ethyl Alcohol Cancelled ( - 10) mg/dL Blood Type Antibody Screen 02/08/20 02/08/20 02/08/20 Range/Units 12:09 12:09 12:57 WBC (4.5-11.0) X10^3/uL RBC (4.0-5.2) X10^6/uL Hgb (12.0-16.0) g/dL Hct (36-46) % MCV (80-100) fL MCH (26-34) PG MCHC (30-36) % RDW (11.6-14.8) % Plt Count (150-400) X10^3/uL Neut % (Auto) (50-75) % Lymph % (Auto) (25-40) % [place] % (Auto) (3-14) % Eos % (Auto) (2-4) % Baso % (Auto) (0-2) % Neut # (Auto) (0150-1028) /uL Lymph # (Auto) (2475-3380) /uL King[place] # (Auto) (0-900) /uL Eos # (Auto) (0-450) /uL Baso # (Auto) (0-100) /uL PT (10.1-12.7) SECONDS INR (0.9-1.3) APTT (26.4-36.2) SECONDS Sodium (137-145) mmol/L Potassium (3.4-5.1) mmol/L Chloride (98-107) mmol/L Carbon Dioxide (22-32) mmol/L BUN (7-17) mg/dL Creatinine (0.52-1.04) mg/dL Estimated GFR (>60) mL/min BUN/Creatinine Ratio (6-22) Glucose (70-100) mg/dL Lactate 1.5 (0.7-2.1) mmol/L Calcium (8.4-10.2) mg/dL Total Bilirubin (0.2-1.3) mg/dL Conjugated Bilirubin (0.0-0.3) md/dL Unconjugated Bilirubin (0.0-1.1) mg/dL AST (14-36) IU/L ALT (<35) IU/L Alkaline Phosphatase (38-126) U/L Total Protein (6.3-8.2) g/dL Albumin (3.5-5.0) g/dL Globulin (1.7-4.1) g/dL Albumin/Globulin Ratio (1.0-2.8) Amylase (30-110) U/L Lipase (23-300) U/L Procalcitonin 0.21 (<0.5) ng/mL Serum , Qual Negative (Negative) Ethyl Alcohol ( - 10) mg/dL Blood Type Antibody Screen Point of care testing: Point of Care Testing Test Results Negative Stool Occult Blood Positive Urine Dip Bedside Urine Glucose Negative Bedside Urine Bilirubin - Negative Bedside Urine Ketone - Negative Urine Specific [place] 1.005 Bedside Urine Occult Blood - Negative Bedside Urine pH 7.0 Bedside Urine Protein - Negative Bedside Urine Urobilinogen - Negative Bedside Urine Nitrite - Negative Bedside Urine Leukocytes - Negative Esterase Imaging Data CT scan - abdomen/pelvis: Radiologist's Impression: [address] [place] [id number] Scan Report Signed Patient: Aleena Judge MMR#: [id number] : 1970Acct:[id number] Age/Sex: 49 / FDate of Service: 02/08/20 Loc: ED Accession Number: [id number] Procedure: CT abdomen pelvis w con Ordering Provider: Hina Mirza [facility]- PROCEDURE: CT ABDOMEN PELVIS W CON INDICATIONS: abd pain, distention TECHNIQUE: After the administration of intravenous contrast, 5 mm thick sections acquired from the diaphragm to the symphysis. 5 mm coronal and sagittal reformats were acquired. For radiation dose reduction, the following was used: automated exposure control, adjustment of mA and/or kV according to patient size. COMPARISON: None. FINDINGS: Image quality: Excellent. ABDOMEN: Lung bases: Lung bases are clear. Heart size is normal. Solid organs: Liver is globally enlarged in size at 24 cm craniocaudad, and and mildly heterogeneous in enhancement with an overall appearance suggestive of generalized hepatic steatosis. Gallbladder appears normal. Biliary system is non dilated. Pancreas enhances normally. Spleen is enlarged at 16 cm craniocaudad in size and normal in enhancement. No adrenal nodules. Kidneys demonstrate normal size and enhancement, without hydronephrosis. Peritoneum and bowel: Bowel loops demonstrate normal wall thickness and caliber. No free air. There is moderate to moderately severe ascites Nodes and vessels: No retroperitoneal or mesenteric adenopathy by size criteria. Aorta and inferior vena cava are normal in size. Miscellaneous: No ventral hernias. Generalized moderate ascites, varices are present to a mild to moderate degree, suspected portal hypertension. PELVIS: Genitourinary: Bladder wall thickness is normal. Miscellaneous: No inguinal hernias or adenopathy. Ascites extends from the abdomen into the pelvis. Moderate to moderately severe overall quantity. No mass is associated. Bones: No suspicious bony lesions. No vertebral body compression fractures. IMPRESSION: Hepatosplenomegaly, generalized fatty infiltration within the liver. Portal hypertension, moderate to moderately severe ascites. A No mass lesion found. Dictated by: Ramon Braden M.D. on 02/08/2020 at 13:43 Approved by: Ramon Braden M.D. on 02/08/2020 at 13:47 MDM Narrative Medical decision making narrative: The patient is a 49-year-old female who has been recently drinking 6-8 drinks per day who presents with a chief complaint of abdominal distension that has been getting worse over the past 6 weeks. She is very distended on exam. Her history is concerning for acute on chronic liver failure or acute liver failure complicated by GI bleed given her right red vomit and heme-positive stool. She has leukocytosis to 17, though not elevated lactate and procalcitonin less than 0.5. She is initially tachycardic in the 12 0s, though normalized the low in 100s with IV fluid. Given her complaints of GI bleeding, she was given Protonix IV. Given patient presentation and acuity, discussed patient with Dr. Bishop who suggested speaking with surgery. Discussed holding off on antibiotics at this point time as the patient is afebrile, with low lactate. I spoke with Dr. Ramsey regarding the patient, who states that the patient might benefit from being at a facility with GI, hepatology, ability to band varices. Thus I spoke with Dr. Shaikh, hospitalist from [facility], who kindly accepted the patient for transfer. Also spoke with Dr Fonseca the GI regarding patient. Patient is okay with transfer. Patient was given octreotide bolus and started on octreotide drip as per [facility] recommendations. She has been hemodynamically stable throughout her stay in the emergency department. The patient was transferred by [facility] with octreotide infusing at 6:50 p.m.. <Akil Bishop MD - Last Filed: 02/09/20 07:18> Lab Data Labs: Lab Results 05/27/20 05/27/20 05/27/20 Range/Units 12:09 12:09 12:09 WBC 17.8 H (4.5-11.0) X10^3/uL RBC 2.79 L (4.0-5.2) X10^6/uL Hgb 10.7 L (12.0-16.0) g/dL Hct 29.9 L (36-46) % MCV 107.3 H (80-100) fL MCH 38.3 H (26-34) PG MCHC 35.7 (30-36) % RDW 13.4 (11.6-14.8) % Plt Count 357 (150-400) X10^3/uL Neut % (Auto) 77.7 H (50-75) % Lymph % (Auto) 14.9 L (25-40) % [place] % (Auto) 6.7 (3-14) % Eos % (Auto) 0.4 L (2-4) % Baso % (Auto) 0.3 (0-2) % Neut # (Auto) 74376 H (0565-0277) /uL Lymph # (Auto) 2600 (9575-5196) /uL [place] # (Auto) 1200 H (0-900) /uL Eos # (Auto) 100 (0-450) /uL Baso # (Auto) 100 (0-100) /uL PT (10.1-12.7) SECONDS INR (0.9-1.3) APTT (26.4-36.2) SECONDS Sodium 127 L (137-145) mmol/L Potassium 3.9 (3.4-5.1) mmol/L Chloride 90 L (98-107) mmol/L Carbon Dioxide 22 (22-32) mmol/L BUN 12 (7-17) mg/dL Creatinine 0.38 L (0.52-1.04) mg/dL Estimated GFR > 60.0 (>60) mL/min BUN/Creatinine Ratio 31.6 H (6-22) Glucose 102 H (70-100) mg/dL Lactate (0.7-2.1) mmol/L Calcium 8.8 (8.4-10.2) mg/dL Total Bilirubin 1.3 (0.2-1.3) mg/dL Conjugated Bilirubin 0.0 (0.0-0.3) md/dL Unconjugated Bilirubin 0.6 (0.0-1.1) mg/dL AST 112 H (14-36) IU/L ALT 31 (<35) IU/L Alkaline Phosphatase 341 H (38-126) U/L Total Protein 7.7 (6.3-8.2) g/dL Albumin 3.4 L (3.5-5.0) g/dL Globulin 4.3 H (1.7-4.1) g/dL Albumin/Globulin Ratio 0.8 L (1.0-2.8) Amylase 53 (30-110) U/L Lipase 87 (23-300) U/L Procalcitonin (<0.5) ng/mL Serum , Qual (Negative) Ethyl Alcohol 13 H ( - 10) mg/dL Blood Type A Negative Antibody Screen Negative 02/08/20 02/08/20 02/08/20 Range/Units 12:09 12:09 12:09 WBC (4.5-11.0) X10^3/uL RBC (4.0-5.2) X10^6/uL Hgb (12.0-16.0) g/dL Hct (36-46) % MCV (80-100) fL MCH (26-34) PG MCHC (30-36) % RDW (11.6-14.8) % Plt Count (150-400) X10^3/uL Neut % (Auto) (50-75) % Lymph % (Auto) (25-40) % [place] % (Auto) (3-14) % Eos % (Auto) (2-4) % Baso % (Auto) (0-2) % Neut # (Auto) (8165-0239) /uL Lymph # (Auto) (1513-0695) /uL [place] # (Auto) (0-900) /uL Eos # (Auto) (0-450) /uL Baso # (Auto) (0-100) /uL PT 17.3 H (10.1-12.7) SECONDS INR 1.5 H (0.9-1.3) APTT 34 (26.4-36.2) SECONDS Sodium (137-145) mmol/L Potassium (3.4-5.1) mmol/L Chloride (98-107) mmol/L Carbon Dioxide (22-32) mmol/L BUN (7-17) mg/dL Creatinine (0.52-1.04) mg/dL Estimated GFR (>60) mL/min BUN/Creatinine Ratio (6-22) Glucose (70-100) mg/dL Lactate (0.7-2.1) mmol/L Calcium (8.4-10.2) mg/dL Total Bilirubin Cancelled (0.2-1.3) mg/dL Conjugated Bilirubin Cancelled (0.0-0.3) md/dL Unconjugated Bilirubin Cancelled (0.0-1.1) mg/dL AST Cancelled (14-36) IU/L ALT Cancelled (<35) IU/L Alkaline Phosphatase Cancelled (38-126) U/L Total Protein Cancelled (6.3-8.2) g/dL Albumin Cancelled (3.5-5.0) g/dL Globulin Cancelled (1.7-4.1) g/dL Albumin/Globulin Ratio Cancelled (1.0-2.8) Amylase (30-110) U/L Lipase (23-300) U/L Procalcitonin (<0.5) ng/mL Serum , Qual (Negative) Ethyl Alcohol Cancelled ( - 10) mg/dL Blood Type Antibody Screen 02/08/20 02/08/20 02/08/20 Range/Units 12:09 12:09 12:57 WBC (4.5-11.0) X10^3/uL RBC (4.0-5.2) X10^6/uL Hgb (12.0-16.0) g/dL Hct (36-46) % MCV (80-100) fL MCH (26-34) PG MCHC (30-36) % RDW (11.6-14.8) % Plt Count (150-400) X10^3/uL Neut % (Auto) (50-75) % Lymph % (Auto) (25-40) % [place] % (Auto) (3-14) % Eos % (Auto) (2-4) % Baso % (Auto) (0-2) % Neut # (Auto) (7260-1488) /uL Lymph # (Auto) (6796-7035) /uL [place] # (Auto) (0-900) /uL Eos # (Auto) (0-450) /uL Baso # (Auto) (0-100) /uL PT (10.1-12.7) SECONDS INR (0.9-1.3) APTT (26.4-36.2) SECONDS Sodium (137-145) mmol/L Potassium (3.4-5.1) mmol/L Chloride (98-107) mmol/L Carbon Dioxide (22-32) mmol/L BUN (7-17) mg/dL Creatinine (0.52-1.04) mg/dL Estimated GFR (>60) mL/min BUN/Creatinine Ratio (6-22) Glucose (70-100) mg/dL Lactate 1.5 (0.7-2.1) mmol/L Calcium (8.4-10.2) mg/dL Total Bilirubin (0.2-1.3) mg/dL Conjugated Bilirubin (0.0-0.3) md/dL Unconjugated Bilirubin (0.0-1.1) mg/dL AST (14-36) IU/L ALT (<35) IU/L Alkaline Phosphatase (38-126) U/L Total Protein (6.3-8.2) g/dL Albumin (3.5-5.0) g/dL Globulin (1.7-4.1) g/dL Albumin/Globulin Ratio (1.0-2.8) Amylase (30-110) U/L Lipase (23-300) U/L Procalcitonin 0.21 (<0.5) ng/mL Serum , Qual Negative (Negative) Ethyl Alcohol ( - 10) mg/dL Blood Type Antibody Screen Point of care testing: Point of Care Testing Test Results Negative Stool Occult Blood Positive Urine Dip Bedside Urine Glucose Negative Bedside Urine Bilirubin - Negative Bedside Urine Ketone - Negative Urine Specific [place] 1.005 Bedside Urine Occult Blood - Negative Bedside Urine pH 7.0 Bedside Urine Protein - Negative Bedside Urine Urobilinogen - Negative Bedside Urine Nitrite - Negative Bedside Urine Leukocytes - Negative Esterase Discharge Plan Departure Patient Disposition: [facility] Clinical Impression: Hyponatremia, Hepatosplenomegaly Acute liver failure Qualifiers: Hepatic coma status: without hepatic coma Qualified Code(s): K72.00 - Acute and subacute hepatic failure without coma GI (gastrointestinal bleed) Qualifiers: GI bleed type/associated pathology: unspecified gastrointestinal hemorrhage type Qualified Code(s): K92.2 - Gastrointestinal hemorrhage, unspecified Discharge Date/Time: 02/08/20 19:00 Prescriptions: No Action amlodipine 5 mg tablet 5 mg PO DAILY Qty: 60 RF: 0 Referrals: Saskia Howell ARNP [Primary Care Provider] -
[2020-02-08 13:03] LABS: Pregnancy Test Serum,Qual Negative (Negative)
--- NOTE | 2020-02-08 13:06 | DI.CT.S_ITS ---
PROCEDURE: CT ABDOMEN PELVIS W CON INDICATIONS: abd pain, distention TECHNIQUE: After the administration of intravenous contrast, 5 mm thick sections acquired from the diaphragm to the symphysis. 5 mm coronal and sagittal reformats were acquired. For radiation dose reduction, the following was used: automated exposure control, adjustment of mA and/or kV according to patient size. COMPARISON: None. FINDINGS: Image quality: Excellent. ABDOMEN: Lung bases: Lung bases are clear. Heart size is normal. Solid organs: Liver is globally enlarged in size at 24 cm craniocaudad, and and mildly heterogeneous in enhancement with an overall appearance suggestive of generalized hepatic steatosis. Gallbladder appears normal. Biliary system is non dilated. Pancreas enhances normally. Spleen is enlarged at 16 cm craniocaudad in size and normal in enhancement. No adrenal nodules. Kidneys demonstrate normal size and enhancement, without hydronephrosis. Peritoneum and bowel: Bowel loops demonstrate normal wall thickness and caliber. No free air. There is moderate to moderately severe ascites Nodes and vessels: No retroperitoneal or mesenteric adenopathy by size criteria. Aorta and inferior vena cava are normal in size. Miscellaneous: No ventral hernias. Generalized moderate ascites, varices are present to a mild to moderate degree, suspected portal hypertension. PELVIS: Genitourinary: Bladder wall thickness is normal. Miscellaneous: No inguinal hernias or adenopathy. Ascites extends from the abdomen into the pelvis. Moderate to moderately severe overall quantity. No mass is associated. Bones: No suspicious bony lesions. No vertebral body compression fractures. IMPRESSION: Hepatosplenomegaly, generalized fatty infiltration within the liver. Portal hypertension, moderate to moderately severe ascites. A No mass lesion found. Dictated by: Ramon Braden M.D. on 02/08/2020 at 13:43 Approved by: Ramon Braden M.D. on 02/08/2020 at 13:47
[2020-02-08 13:13] LABS: Procalcitonin 0.21 ng/mL (<0.5)
[2020-02-08 13:19] LABS: Lactate (Lactic Acid) 1.5 mmol/L (0.7-2.1)
[2020-02-08] MEDS: PANTOPRAZOLE 40 MG VIAL IV (13:23)
[2020-02-08] MEDS: SODIUM CHLORIDE 0.9% 1,000 ML 1000 ML IV (13:23)
[2020-02-08] MEDS: OCTREOTIDE 100 MCG/ML VIAL 50 MCG IV (17:54)
[2020-02-08] MEDS: OCTREOTIDE 500 MCG in SODIUM CHLORIDE 0.9% 100 ML 5.05 ML IV (17:54)
--- NOTE | 2020-02-08 19:25 | PC.NURSE ---
patient was transferred out with two IVs. The first one in her right ac, infiltratred and was replaced with a 20ga in her right forearm. She also had a 22 on her left upper forearm.
== END 2020-02-08 19:00 | disposition short-term general hospital (02) ==
PROVIDERS: Emergency Provider Nurse Practitioner Family; PCP Nurse Practitioner Family
DX: K72.00 Acute and subacute hepatic failure without coma (principal); K92.2 Gastrointestinal hemorrhage, unspecified; E87.1 Hypo-osmolality and hyponatremia; R16.2 Hepatomegaly with splenomegaly, not elsewhere classified
CPT/HCPCS: 36415; 74177; 80053; 80076; 80320; 81003; 81025; 82150; 82272; 83605; 83690; 84145; 84703; 85025; 85610; 85730; 86850; 86900; 86901; 87040; 93005; 96365; 96366; 96368; 96375; 99285; C9113; J2354

== ENCOUNTER → 2020-02-16 16:36 | Outpatient (CLI) | payer OTHER, SELFPAY ==
[2020-02-16 16:59] LABS: Hemoglobin 10.2 g/dL (12.0-16.0); Mean Corpuscular HGB Conc 35.4 % (30-36); Mean Corpuscular Hemoglobin 37.3 PG (26-34); Mean Corpuscular Volume 105.5 fL (80-100); Platelet Count 505 X10^3/uL (150-400); Red Blood Cell Count 2.75 X10^6/uL (4.0-5.2); Red Cell Distribution Width 13.8 % (11.6-14.8); White Blood Cell Count 11.9 X10^3/uL (4.5-11.0)
[2020-02-16 17:13] LABS: Alanine Aminotransferase 51 IU/L (<35); Albumin 3.9 g/dL (3.5-5.0); Albumin Globulin Ratio 0.8 (1.0-2.8); Alkaline Phosphatase 358 U/L (38-126); Aspartate Aminotransferase 175 IU/L (14-36); BUN Creatinine Ratio 14.5 (6-22); Bilirubin Total 1.5 mg/dL (0.2-1.3); Bilirubin Unconjugated 0.7 mg/dL (0.0-1.1); Blood Urea Nitrogen 9 mg/dL (7-17); Calcium 9.3 mg/dL (8.4-10.2); Carbon Dioxide 27 mmol/L (22-32); Chloride 92 mmol/L (98-107); Estimated Glomerular Filt Rate > 60.0 mL/min (>60); Globulin 4.9 g/dL (1.7-4.1); Glucose 109 mg/dL (70-100); HEMOLYSIS < 15 (0-50); Potassium 4.3 mmol/L (3.4-5.1); Sodium 127 mmol/L (137-145); Total Protein 8.8 g/dL (6.3-8.2)
[2020-02-16 17:43] LABS: TSH w/ Reflex to FT4 8.37 uIU/mL (0.47-4.68)
[2020-02-16 18:11] LABS: Free T4, Direct Thyroxine 1.47 ng/dL (0.78-2.19)
== END ==
PROVIDERS: PCP Nurse Practitioner Family; Referring Provider Nurse Practitioner Family; Visit Provider Nurse Practitioner Family
DX: R74.8 Abnormal levels of other serum enzymes (principal); K72.00 Acute and subacute hepatic failure without coma; R18.8 Other ascites; R79.89 Other specified abnormal findings of blood chemistry
CPT/HCPCS: 36415; 80053; 80076; 84439; 84443; 85027

== ENCOUNTER → 2020-02-24 11:20 | Outpatient (CLI) | payer OTHER, SELFPAY ==
[2020-02-24 12:23] LABS: Hematocrit 29.3 % (36-46); Hemoglobin 10.1 g/dL (12.0-16.0); Mean Corpuscular HGB Conc 34.3 % (30-36); Mean Corpuscular Hemoglobin 35.3 PG (26-34); Mean Corpuscular Volume 102.9 fL (80-100); Platelet Count 415 X10^3/uL (150-400); Red Blood Cell Count 2.85 X10^6/uL (4.0-5.2); Red Cell Distribution Width 14.8 % (11.6-14.8); White Blood Cell Count 11.4 X10^3/uL (4.5-11.0)
[2020-02-24 13:11] LABS: Alanine Aminotransferase 47 IU/L (<35); Albumin 3.8 g/dL (3.5-5.0); Albumin Globulin Ratio 0.8 (1.0-2.8); Alkaline Phosphatase 292 U/L (38-126); Aspartate Aminotransferase 147 IU/L (14-36); Bilirubin Total 1.3 mg/dL (0.2-1.3); Blood Urea Nitrogen 11 mg/dL (7-17); Calcium 9.2 mg/dL (8.4-10.2); Carbon Dioxide 22 mmol/L (22-32); Chloride 96 mmol/L (98-107); Estimated Glomerular Filt Rate > 60.0 mL/min (>60); Globulin 4.7 g/dL (1.7-4.1); Glucose 119 mg/dL (70-100); HEMOLYSIS < 15 (0-50); Potassium 4.3 mmol/L (3.4-5.1); Sodium 132 mmol/L (137-145); Total Protein 8.5 g/dL (6.3-8.2)
== END ==
PROVIDERS: PCP Nurse Practitioner Family; Referring Provider Nurse Practitioner Family; Visit Provider Nurse Practitioner Family
DX: K76.9 Liver disease, unspecified (principal); R18.8 Other ascites
CPT/HCPCS: 36415; 80053; 85027

== ENCOUNTER → 2020-03-15 11:18 | Outpatient (CLI) | payer OTHER, SELFPAY ==
--- NOTE | 2020-03-15 11:19 | DI.RAD.S_ITS ---
PROCEDURE: XR THORACIC SPINE 3V INDICATIONS: mid back pain TECHNIQUE: 3 views of the thoracic spine were acquired. COMPARISON: None. FINDINGS: Bones: No fractures or dislocations. No suspicious bony lesions. Multilevel degenerative endplate sclerosis and spurring. Diffuse facet arthropathy. Lower cervical ACDF incidentally noted Soft tissues: No paravertebral stripe thickening. IMPRESSION: No fracture. Dictated by: Clifton Thibodeaux M.D. on 03/15/2020 at 14:22 Approved by: Clifton Thibodeaux M.D. on 03/15/2020 at 14:23
== END ==
PROVIDERS: PCP Nurse Practitioner Family; Referring Provider Nurse Practitioner Family; Visit Provider Nurse Practitioner Family
DX: M54.6 Pain in thoracic spine (principal); M47.814 Spondylosis without myelopathy or radiculopathy, thoracic region; G89.29 Other chronic pain; Z98.1 Arthrodesis status
CPT/HCPCS: 72072

== ENCOUNTER → 2020-03-26 15:32 | Outpatient (CLI) | payer OTHER, SELFPAY ==
[2020-03-26 16:36] LABS: Add Manual Diff / Slide Review NO; Basophils Absolute Auto 0 /uL (0-100); Basophils Percent Auto 0.8 % (0-2); Eosinophils Absolute Auto 100 /uL (0-450); Eosinophils Percent Auto 2.2 % (2-4); Hematocrit 26.5 % (36-46); Lymphocytes Absolute Auto 1700 /uL (1100-4500); Lymphocytes Percent Auto 30.1 % (25-40); Mean Corpuscular HGB Conc 33.9 % (30-36); Mean Corpuscular Hemoglobin 30.8 PG (26-34); Mean Corpuscular Volume 90.7 fL (80-100); Monocytes Absolute Auto 400 /uL (0-900); Monocytes Percent Auto 6.9 % (3-14); Neutrophils Absolute Auto 3400 /uL (1500-7000); Platelet Count 284 X10^3/uL (150-400); Red Blood Cell Count 2.92 X10^6/uL (4.0-5.2); Red Cell Distribution Width 17.2 % (11.6-14.8); White Blood Cell Count 5.7 X10^3/uL (4.5-11.0)
[2020-03-26 16:45] LABS: INR 1.4 (0.9-1.3); Prothrombin Time 16.7 SECONDS (10.1-12.7)
[2020-03-26 16:48] LABS: PTT Partial Thromboplastin Tim 38 SECONDS (26.4-36.2)
[2020-03-26 16:55] LABS: Alanine Aminotransferase 43 IU/L (<35); Albumin 4.2 g/dL (3.5-5.0); Albumin Globulin Ratio 0.9 (1.0-2.8); Alkaline Phosphatase 145 U/L (38-126); Aspartate Aminotransferase 76 IU/L (14-36); BUN Creatinine Ratio 22.8 (6-22); Blood Urea Nitrogen 13 mg/dL (7-17); Calcium 9.7 mg/dL (8.4-10.2); Carbon Dioxide 21 mmol/L (22-32); Chloride 101 mmol/L (98-107); Estimated Glomerular Filt Rate > 60.0 mL/min (>60); Globulin 4.7 g/dL (1.7-4.1); Glucose 90 mg/dL (70-100); HEMOLYSIS < 15 (0-50); Potassium 3.6 mmol/L (3.4-5.1); Sodium 134 mmol/L (137-145); Total Protein 8.9 g/dL (6.3-8.2)
[2020-03-26 17:26] LABS: Thyroid Stimulating Hormone 3.15 uIU/mL (0.47-4.68)
[2020-03-27 20:07] LABS: Anti Thyroglobulin Antibody <1.0 IU/mL (0.0-0.9); Thyroid Peroxidase Antibodies <9 IU/mL (0-34)
== END ==
PROVIDERS: PCP Nurse Practitioner Family; Referring Provider Student in an Organized Health Care Education/Training Program; Visit Provider Nurse Practitioner Family
DX: K70.11 Alcoholic hepatitis with ascites (principal); R79.89 Other specified abnormal findings of blood chemistry; K76.9 Liver disease, unspecified
CPT/HCPCS: 36415; 80053; 84439; 84443; 85025; 85610; 85730; 86376; 86800

== ENCOUNTER → 2020-04-11 13:10 | Outpatient (CLI) | payer OTHER, SELFPAY ==
[2020-04-11 14:21] LABS: Add Manual Diff / Slide Review NO; Basophils Absolute Auto 100 /uL (0-100); Eosinophils Absolute Auto 100 /uL (0-450); Eosinophils Percent Auto 2.1 % (2-4); Hematocrit 26.3 % (36-46); Hemoglobin 8.8 g/dL (12.0-16.0); Lymphocytes Absolute Auto 1600 /uL (1100-4500); Lymphocytes Percent Auto 30.7 % (25-40); Mean Corpuscular HGB Conc 33.6 % (30-36); Mean Corpuscular Hemoglobin 28.7 PG (26-34); Mean Corpuscular Volume 85.6 fL (80-100); Monocytes Absolute Auto 400 /uL (0-900); Monocytes Percent Auto 7.3 % (3-14); Neutrophils Absolute Auto 3100 /uL (1500-7000); Neutrophils Percent Auto 58.9 % (50-75); Platelet Count 259 X10^3/uL (150-400); Red Blood Cell Count 3.07 X10^6/uL (4.0-5.2); Red Cell Distribution Width 17.2 % (11.6-14.8); White Blood Cell Count 5.2 X10^3/uL (4.5-11.0)
[2020-04-11 14:43] LABS: HEMOLYSIS < 15 (0-50); Iron 53 ug/dL (37-170)
[2020-04-11 15:00] LABS: Percent Iron Saturation 11 % (15-50); Total Iron Binding Capacity 465 ug/dL (265-497); Transferrin 409 mg/dL (206-381)
[2020-04-11 15:02] LABS: Erythrocyte Sedimentation Rate 74 MM/HR (0-20)
[2020-04-11 15:21] LABS: Ferritin 10 ng/mL (11-264)
== END ==
PROVIDERS: PCP Nurse Practitioner Family; Referring Provider Physician Assistant Medical; Visit Provider Physician Assistant Medical
DX: L65.9 Nonscarring hair loss, unspecified (principal)
CPT/HCPCS: 36415; 82728; 83540; 83550; 85025; 85651

== ENCOUNTER → 2020-04-22 14:23 | Outpatient (CLI) | payer OTHER, SELFPAY ==
--- NOTE | 2020-04-23 12:53 | ONC.MSW ---
Description: New Referral Navigation Activity: Reviewed pt's referral for acuity, medical status, and immediate needs. Forwarded to scheduling for next available consult time.
[2020-04-23 23:33] LABS: COVID19 Sendout Not Detected (Not Detect)
== END ==
PROVIDERS: PCP Nurse Practitioner Family; Visit Provider Physician Assistant
DX: Z11.59 Encounter for screening for other viral diseases (principal)
CPT/HCPCS: 87635

== ENCOUNTER → 2020-04-23 15:42 | Outpatient (CLI) | payer OTHER, SELFPAY ==
[2020-04-23 16:19] LABS: Hematocrit 25.5 % (36-46); Hemoglobin 8.7 g/dL (12.0-16.0); Mean Corpuscular HGB Conc 34.2 % (30-36); Mean Corpuscular Hemoglobin 28.3 PG (26-34); Mean Corpuscular Volume 82.8 fL (80-100); Platelet Count 244 X10^3/uL (150-400); Red Blood Cell Count 3.08 X10^6/uL (4.0-5.2); Red Cell Distribution Width 17.5 % (11.6-14.8); White Blood Cell Count 5.5 X10^3/uL (4.5-11.0)
[2020-04-23 16:35] LABS: Alanine Aminotransferase 41 IU/L (<35); Albumin 4.2 g/dL (3.5-5.0); Albumin Globulin Ratio 0.9 (1.0-2.8); Alkaline Phosphatase 127 U/L (38-126); Aspartate Aminotransferase 56 IU/L (14-36); Blood Urea Nitrogen 12 mg/dL (7-17); Calcium 9.9 mg/dL (8.4-10.2); Carbon Dioxide 22 mmol/L (22-32); Chloride 102 mmol/L (98-107); Estimated Glomerular Filt Rate > 60.0 mL/min (>60); Globulin 4.8 g/dL (1.7-4.1); Glucose 92 mg/dL (70-100); HEMOLYSIS < 15 (0-50); Potassium 4.1 mmol/L (3.4-5.1); Sodium 134 mmol/L (137-145)
[2020-04-23 16:53] LABS: INR 1.5 (0.9-1.3); Prothrombin Time 17.4 SECONDS (10.1-12.7)
[2020-04-23 17:07] LABS: Ferritin 11 ng/mL (11-264)
[2020-04-23 17:10] LABS: HEMOLYSIS < 15 (0-50); Iron 49 ug/dL (37-170)
[2020-04-23 17:21] LABS: Percent Iron Saturation 9 % (15-50); Total Iron Binding Capacity 541 ug/dL (265-497); Transferrin 424 mg/dL (206-381)
== END ==
PROVIDERS: PCP Nurse Practitioner Family; Referring Provider Nurse Practitioner Family; Visit Provider Nurse Practitioner Family
DX: D50.9 Iron deficiency anemia, unspecified (principal); K76.9 Liver disease, unspecified
CPT/HCPCS: 36415; 80053; 82728; 83540; 83550; 85027; 85610

== ENCOUNTER 2020-04-25 12:41 | Day surgery (SDC) | payer OTHER, SELFPAY ==
[2020-04-25] VITALS (7 sets, daily range): BP systolic 89–134; BP diastolic 56–75; PULSE 85–96; RESP 14–23; TEMP 36.2–36.4; O2SAT 93–100; BMI 22.0
[2020-04-25] MEDS: SODIUM CHLORIDE 0.9% 1,000 ML 70 ML IV (13:57)
--- NOTE | 2020-04-25 14:33 | PM.HP.1 ---
History of Present Illness History of Present Illness Date Patient Seen: 04/25/20 Time Patient Seen: 14:33 Chief complaint: EGD W/DILATION BANDING Narrative: Patient is a very pleasant 49-year-old female who presented for repeat EGD for possible esophageal variceal banding. She had esophageal variceal banding for acute bleeding in January of 2020. Repeat upper endoscopy on March 12, 2022 additional bands were placed. She is here for follow-up. She states she has been doing quite well. She does feel persistent ascites. She has been taking diuretics and following a 2 g sodium restricted diet. Patient History Medical History Abnormal TSH (Acute) Ascites (Acute 01/2020) Chicken pox (Resolved) Eczema (Acute) Esophageal varices without bleeding (Acute 01/2020) ETOH abuse (Acute 2009) Iron deficiency anemia (Acute) Liver disease (Acute) Mid back pain, chronic (Acute 1999) Screening for malignant neoplasm of colon (Acute) Surgical History Anesthesia (Resolved) History of back surgery (Resolved) Family & Social History Social History: household members family Tobacco & Substance use: Tobacco type cigarettes Smoking Status Current every day smoker Smoking packs per day 1 alcohol intake former alcohol intake frequency 3 or more drinks per day Substance Use Type does not use Meds Home Medications and Allergies Home Medications Medication Instructions Recorded Confirmed Type furosemide 40 mg tablet 60 mg PO DAILY tab 02/16/20 03/14/20 History spironolactone 50 mg tablet 75 mg PO BID tab 02/16/20 03/14/20 History calcium carbonate 600 mg (1,500 cap PO 03/08/20 03/14/20 History mg)-vitamin D3 500 unit capsule multivitamin with minerals 1 tab PO DAILY 03/08/20 03/14/20 History ferrous gluconate 236 mg (27 mg 236 mg PO .QOD #60 tab 04/13/20 Rx iron) tablet omeprazole 10 mg PO BID 04/25/20 04/25/20 History Allergies Allergy/AdvReac Type Severity Reaction Status Date / Time losartan AdvReac Intermediate Feels Verified 04/25/20 13:46 dopey, spaced out, sore throat, runny nose. lisinopril AdvReac Mild cough Verified 04/25/20 13:46 Review of Systems Review of Systems ROS: Yes All systems reviewed with the patient and are negative except as otherwise documented Exam Vital Signs (past 8 hours): - 04/25/20 13:49 Temperature 97.3 F L Pulse Rate 89 Respiratory Rate 14 Blood Pressure 134/75 Pulse Oximetry 100 Oxygen Delivery Method Room Air Const General: cooperative, comfortable and well developed Nutritional Appearance: average body habitus Orientation: alert and awake HENMT Head: normocephalic and atraumatic Resp Effort & Inspection: normal respiratory effort and able to speak in complete sentences Auscultation: clear to auscultation bilaterally Cardio Rate: regular rate Rhythm: regular rhythm Heart Sounds: S1 normal and S2 normal GI Inspection: distended (mild) Palpation: soft and ascites Auscultation: normal bowel sounds Extrem Right lower extremity: no edema Left lower extremity: no edema Assessment & Plan Assessment & Plan narrative: Alcoholic cirrhosis with history variceal banding -repeat EGD today possible banding further recommendations to follow
--- NOTE | 2020-04-25 14:48 | PM.OP.ENDO ---
Operative Date/Time/Diagnoses Date of procedure: 04/25/20 Time of procedure: 14:40 Procedure Notes Procedure in detail: Surgeon: Aleena Orr DO Procedure: Esophagogastroduodenoscopy Preoperative diagnosis: 1. History esophageal varices 2. Alcoholic cirrhosis with ascites Postoperative diagnosis: 1. Small esophageal varices, flattened with insufflation, no additional bands placed 2. Portal hypertensive gastropathy 3. Normal appearing duodenum Medications: Monitored anesthesia care Preanesthesia Assessment An H and P was performed/updated and the Px?s ASA class is 3. The procedure was discussed in detail with the patient. The potential risks and complications including infection, bleeding, missed lesions, perforation, need for surgery in case of perforation, prolonged hospital stay, and were explained. A brief question and answer period was allotted and once all questions were answered, informed consent was obtained. The patient was brought back to the procedure room and placed on standard monitoring. The patient?s vital signs were monitored continuously throughout the entire procedure. Prior to starting, a timeout was performed to confirm the patient?s identity, allergies, medications, and procedure. Procedure in detail The patient was placed in left lateral decubitus position and a bite block was inserted. The tip of the upper endoscope was placed into the mouth and advanced without difficulty under direct visualization into the esophagus. Esophagus: Small Esophageal varices in the lower 3rd of the esophagus, flattened with insufflation -no additional bands were placed Stomach: Portal hypertensive gastropathy Duodenum: No gross lesions entire examined duodenum The patient tolerated the procedure well and will be brought back to the recovery area to be discharged once criteria are met. The total physician intraservice time was 7 minutes. Complications There were no complications and estimated blood loss was minimal. Recommendations: Resume previous diet Continue outPx medications Follow up pathology results Repeat EGD in 1 year Office follow up in 2-3 months An emergency contact number was given to the patient for any complications related to the procedure
== END 2020-04-25 15:18 | disposition home or self-care (01) ==
PROVIDERS: PCP Nurse Practitioner Family; Referring Provider Nurse Practitioner Family; Visit Provider Student in an Organized Health Care Education/Training Program
PROC: 0DJ08ZZ Inspection of Upper Intestinal Tract, Via Natural or Artificial Opening Endoscopic (ICD-10-PCS; CPT 43235; principal; 2020-04-25 16:00)
DX: I85.00 Esophageal varices without bleeding (principal); K76.6 Portal hypertension; K70.31 Alcoholic cirrhosis of liver with ascites; F10.11 Alcohol abuse, in remission; K31.89 Other diseases of stomach and duodenum
CPT/HCPCS: 43235; J2250; J3010

== ENCOUNTER → 2020-07-08 15:04 | Outpatient (CLI) | payer OTHER, SELFPAY ==
[2020-07-09 11:10] LABS: COVID19 -Nasal RAPID Negative (Negative)
== END ==
PROVIDERS: PCP Nurse Practitioner Family; Visit Provider Physician Assistant
DX: Z11.59 Encounter for screening for other viral diseases (principal)
CPT/HCPCS: 87635

== ENCOUNTER → 2020-07-10 15:29 | Outpatient (CLI) | payer OTHER, SELFPAY ==
[2020-07-10 16:19] LABS: Alanine Aminotransferase 35 IU/L (<35); Albumin 4.2 g/dL (3.5-5.0); Albumin Globulin Ratio 0.9 (1.0-2.8); Alkaline Phosphatase 94 U/L (38-126); Aspartate Aminotransferase 68 IU/L (14-36); BUN Creatinine Ratio 33.3 (6-22); Bilirubin Total 1.1 mg/dL (0.2-1.3); Blood Urea Nitrogen 18 mg/dL (7-17); Calcium 9.2 mg/dL (8.4-10.2); Carbon Dioxide 31 mmol/L (22-32); Chloride 94 mmol/L (98-107); Estimated Glomerular Filt Rate > 60.0 mL/min (>60); Globulin 4.7 g/dL (1.7-4.1); Glucose 93 mg/dL (70-100); HEMOLYSIS < 15 (0-50); Potassium 3.5 mmol/L (3.4-5.1); Sodium 132 mmol/L (137-145); Total Protein 8.9 g/dL (6.3-8.2)
[2020-07-10 16:42] LABS: HEMOLYSIS < 15 (0-50); Iron 80 ug/dL (37-170)
[2020-07-10 16:51] LABS: Add Manual Diff / Slide Review NO; Basophils Absolute Auto 0 /uL (0-100); Basophils Percent Auto 0.6 % (0-2); Eosinophils Absolute Auto 100 /uL (0-450); Eosinophils Percent Auto 1.4 % (2-4); Hematocrit 32.7 % (36-46); Hemoglobin 11.1 g/dL (12.0-16.0); Lymphocytes Absolute Auto 1400 /uL (1100-4500); Lymphocytes Percent Auto 23.9 % (25-40); Mean Corpuscular Hemoglobin 31.7 PG (26-34); Mean Corpuscular Volume 93.4 fL (80-100); Monocytes Absolute Auto 600 /uL (0-900); Monocytes Percent Auto 9.8 % (3-14); Neutrophils Absolute Auto 3900 /uL (1500-7000); Neutrophils Percent Auto 64.3 % (50-75); Platelet Count 189 X10^3/uL (150-400); Red Cell Distribution Width 17.3 % (11.6-14.8)
[2020-07-10 16:52] LABS: Percent Iron Saturation 15 % (15-50); Total Iron Binding Capacity 536 ug/dL (265-497); Transferrin 427 mg/dL (206-381)
[2020-07-10 16:54] LABS: Ferritin 17 ng/mL (11-264)
== END ==
PROVIDERS: Internal Medicine Hematology & Oncology; PCP Nurse Practitioner Family; Referring Provider Nurse Practitioner Family; Visit Provider Nurse Practitioner Family
DX: D50.9 Iron deficiency anemia, unspecified (principal)
CPT/HCPCS: 36415; 80053; 82728; 83540; 83550; 85025

== ENCOUNTER 2020-07-11 13:26 | Day surgery (SDC) | payer OTHER, SELFPAY ==
--- NOTE | 2020-07-11 | PATH_ITS ---
[facility] Accession Number: [id number] . 01 Material submitted: . PART A: colon - ASCENDING COLON POLYP PART B: rectum - THREE RECTAL POLYPS . 01 Clinical history: . SCREENING COLONOSCOPY W/POSS BX . 02 Diagnosis: A. Ascending Colon, Polyp: Tubular adenoma. . B. Rectum, Polyps: Fragments of hyperplastic polyp (three polyps removed). MRV 07/16/2020 1117 Local . 02 Electronically signed: . Joon Currie MD, PhD, Pathologist NPI- [id number] . 01 Gross description: . A. Received in formalin, labeled ascending colon polyp, and consists of a 0.6 x 0.4 x 0.3 cm oliver-pink polyp. The base is inked blue. The specimen is entirely submitted in cassette A1. B. Received in formalin, labeled three rectal polyps, and consists of multiple oliver-white fragments of soft tissue measuring 0.8 x 0.6 x 0.2 cm in aggregate. The specimen is entirely submitted in cassette B1. ([id number]) /MRV 07/12/2020 1517 Local . 02 Pathologist provided ICD-10: D12.2, K62.1 . 02 CPT . 632608, [id number] Performed at: 01 [facility] [address], [place], [place] [id number] MD John Taylor MD Phone: [phone] Performed at: 02 [facility] [address] [place], [place] [id number] MD Lili Jackson MD Phone: [phone]
[2020-07-11 14:15] VITALS: BP 106/67; PULSE 93; RESP 20; TEMP 36.6; O2SAT 97; BMI 21.4
[2020-07-11] MEDS: SODIUM CHLORIDE 0.9% 1,000 ML 70 ML IV (14:33)
--- NOTE | 2020-07-11 15:07 | PM.HP.1 ---
History of Present Illness History of Present Illness Date Patient Seen: 07/11/20 Time Patient Seen: 15:08 Chief complaint: SCREENING COLONOSCOPY W/POSS BX Narrative: Patient is a 50-year-old female who presented colonoscopy. She does have a known history of cirrhosis secondary to alcohol abuse. She does have a history of esophageal variceal bleeding. She has had persistent anemia despite treatment of her upper GI bleeding source. She had a remote colonoscopy at the age of 39, this available for review. She was last seen in the office on April 05, 2000. Since that time she has had continued abdominal distention consistent with ascites. Has polyp 2 g sodium restricted diet and the use of diuretic Patient History Medical History Abnormal TSH (Acute) Ascites (Acute 01/2020) Chicken pox (Resolved) Eczema (Acute) Esophageal varices without bleeding (Acute 01/2020) ETOH abuse (Resolved 2009) Iron deficiency anemia (Acute) Liver disease (Acute) Mid back pain, chronic (Acute 1999) Screening for malignant neoplasm of colon (Acute) Surgical History Anesthesia (Resolved) History of back surgery (Resolved) Family & Social History Social History: household members friend(s) Tobacco & Substance use: Tobacco type cigarettes Smoking Status Current every day smoker Smoking packs per day 1 alcohol intake current alcohol intake frequency a few times a week Substance Use Type does not use Meds Home Medications and Allergies Home Medications Medication Instructions Recorded Confirmed Type furosemide 40 mg tablet 80 mg PO DAILY tab 02/16/20 07/11/20 History spironolactone 50 mg tablet 100 mg PO BID tab 02/16/20 07/11/20 History calcium carbonate 600 mg (1,500 1 cap PO DAILY 03/08/20 07/11/20 History mg)-vitamin D3 500 unit capsule multivitamin with minerals 1 tab PO DAILY 03/08/20 07/11/20 History omeprazole 40 mg PO BID 04/25/20 07/11/20 History Allergies Allergy/AdvReac Type Severity Reaction Status Date / Time losartan AdvReac Intermediate Feels Verified 05/17/20 10:55 dopey, spaced out, sore throat, runny nose. lisinopril AdvReac Mild cough Verified 05/17/20 10:55 Review of Systems Review of Systems ROS: Yes All systems reviewed with the patient and are negative except as otherwise documented Exam Vital Signs (past 8 hours): - 07/11/20 14:15 Temperature 97.9 F Pulse Rate 93 H Respiratory Rate 20 Blood Pressure 106/67 Pulse Oximetry 97 Oxygen Delivery Method Room Air Const General: cooperative, healthy appearing, comfortable and well developed Nutritional Appearance: average body habitus HENMT Head: normocephalic and atraumatic Resp Effort & Inspection: normal respiratory effort and able to speak in complete sentences Auscultation: clear to auscultation bilaterally Cardio Rate: regular rate Rhythm: regular rhythm Heart Sounds: S1 normal and S2 normal GI Inspection: distended Palpation: soft and ascites Auscultation: normal bowel sounds Extrem Right lower extremity: no edema Left lower extremity: no edema Assessment & Plan Assessment & Plan narrative: 1. Screening colonoscopy 2. Persistent anemia after upper GI bleed 3. Cirrhosis secondary to alcohol abuse with ascites Colonoscopy today further follow
--- NOTE | 2020-07-11 15:21 | SUR.OPER ---
Dr. Angela present for administration of all sedation and anesthesia for this case.
[2020-07-11 15:49] VITALS: BP 100/61; PULSE 84; RESP 16; TEMP 37.3; O2SAT 97
--- NOTE | 2020-07-11 15:49 | PM.OP.ENDO ---
Operative Date/Time/Diagnoses Date of procedure: 07/11/20 Time of procedure: 15:49 Procedure Notes Procedure in detail: Surgeon: Aleena Orr DO Procedure: Colonoscopy with polypectomy Preoperative diagnosis: 1. Screening colonoscopy 2. Anemia 3. Cirrhosis due to alcohol abuse Postoperative diagnosis: 1. Rectal varices 2. 6 mm polyp in the ascending colon, removed with cold snare, hemoclip placed to prevent bleeding 3. Three 2-3 mm polyps removed in the rectum with cold forceps Medications: Monitored anesthesia care, see anesthesia note Preanesthesia Assessment An H and P was performed/updated and the Px?s ASA class is 3. The procedure was discussed in detail with the patient. The potential risks and complications including infection, bleeding, missed lesions, perforation, need for surgery in case of perforation, prolonged hospital stay, and were explained. A brief question and answer period was allotted and once all questions were answered, informed consent was obtained. The patient was brought back to the procedure room and placed on standard monitoring. The patient?s vital signs were monitored continuously throughout the entire procedure. Prior to starting, a timeout was performed to confirm the patient?s identity, allergies, medications, and procedure. Procedure in detail The patient was placed in left lateral decubitus position and once adequate sedation was obtained a BYRON was performed. The digital rectal examination did not reveal any palpable lesions. The tip of the colonoscope was placed in the anal canal and advanced with some difficulty due to a tortuous colon. The scope was advanced all the way to the cecum which was identified by the appendiceal orifice and the ileocecal valve. Careful examination of all smart of the colon was performed with irrigation of any residual stool. 6 mm ascending colon polyp removed with cold snare, due to liver disease a hemoclip was placed. Three 2-3 mm polyps removed in the rectum with cold forceps Rectal varices noted The patient tolerated the procedure well and will be brought back to the recovery area to be discharged once criteria are met. The prep was judged to be good/excellent and adequate to identify polyps less than 5 mm. The withdrawal time was 11min. The total physician intraservice time was 22min Complications There were no complications and estimated blood loss was minimal. Recommendations: Resume previous diet Continue outPx medications Follow up pathology results Repeat colonoscopy based on pathology Office follow up as previously scheduled An emergency contact number was given to the patient for any complications related to the procedure
[2020-07-11 15:51] VITALS: BP 112/71; PULSE 86; RESP 15; O2SAT 98
[2020-07-11 15:56] VITALS: BP 110/70; PULSE 88; RESP 16; O2SAT 99
[2020-07-11 15:59] VITALS: BP 110/66; PULSE 99; RESP 22; TEMP 37.2; O2SAT 98
[2020-07-11 16:08] VITALS: BP 121/77; PULSE 77; RESP 16; TEMP 36.4; O2SAT 100
--- NOTE | 2020-07-11 16:16 | SUR.PHASEII ---
Pt up and ambulating gait steady, getting dressed now after iv dcd site clear. All dc instructions given and pt verbalizes understanding. Friend on her way to pick up man
== END 2020-07-11 16:25 | disposition home or self-care (01) ==
PROVIDERS: PCP Nurse Practitioner Family; Referring Provider Nurse Practitioner Family; Visit Provider Student in an Organized Health Care Education/Training Program
PROC: 0DJD8ZZ Inspection of Lower Intestinal Tract, Via Natural or Artificial Opening Endoscopic (ICD-10-PCS; CPT 45378; principal; 2020-07-11 15:00)
DX: Z12.11 Encounter for screening for malignant neoplasm of colon (principal); K70.30 Alcoholic cirrhosis of liver without ascites; F10.11 Alcohol abuse, in remission; D12.2 Benign neoplasm of ascending colon; K62.1 Rectal polyp
CPT/HCPCS: 45385; 45380; J2704

== ENCOUNTER → 2020-07-18 15:49 | Outpatient (CLI) | payer OTHER, SELFPAY ==
[2020-07-18 16:13] LABS: Add Manual Diff / Slide Review NO; Basophils Absolute Auto 100 /uL (0-100); Eosinophils Absolute Auto 100 /uL (0-450); Eosinophils Percent Auto 1.7 % (2-4); Hematocrit 33.2 % (36-46); Hemoglobin 11.3 g/dL (12.0-16.0); Lymphocytes Absolute Auto 1500 /uL (1100-4500); Lymphocytes Percent Auto 23.9 % (25-40); Mean Corpuscular Volume 94.3 fL (80-100); Monocytes Absolute Auto 500 /uL (0-900); Neutrophils Absolute Auto 4100 /uL (1500-7000); Neutrophils Percent Auto 65.4 % (50-75); Platelet Count 177 X10^3/uL (150-400); Red Blood Cell Count 3.53 X10^6/uL (4.0-5.2); Red Cell Distribution Width 16.1 % (11.6-14.8); White Blood Cell Count 6.3 X10^3/uL (4.5-11.0)
[2020-07-18 16:18] LABS: INR 1.4 (0.9-1.3); Prothrombin Time 15.9 SECONDS (10.1-12.7)
[2020-07-18 16:32] LABS: Alanine Aminotransferase 36 IU/L (<35); Albumin 4.3 g/dL (3.5-5.0); Alkaline Phosphatase 113 U/L (38-126); Aspartate Aminotransferase 64 IU/L (14-36); Bilirubin Total 0.8 mg/dL (0.2-1.3); Blood Urea Nitrogen 14 mg/dL (7-17); Carbon Dioxide 27 mmol/L (22-32); Chloride 97 mmol/L (98-107); Estimated Glomerular Filt Rate > 60.0 mL/min (>60); Globulin 4.2 g/dL (1.7-4.1); Glucose 90 mg/dL (70-100); HEMOLYSIS < 15 (0-50); Potassium 3.8 mmol/L (3.4-5.1); Sodium 132 mmol/L (137-145); Total Protein 8.5 g/dL (6.3-8.2)
== END ==
PROVIDERS: PCP Nurse Practitioner Family; Referring Provider Student in an Organized Health Care Education/Training Program; Visit Provider Student in an Organized Health Care Education/Training Program
DX: K70.30 Alcoholic cirrhosis of liver without ascites (principal); K70.11 Alcoholic hepatitis with ascites
CPT/HCPCS: 36415; 80053; 85025; 85610

== ENCOUNTER → 2020-07-20 09:58 | Outpatient (CLI) | payer OTHER, SELFPAY ==
--- NOTE | 2020-07-20 | DI.US.S_ITS ---
PROCEDURE: US ABDOMEN LIMITED INDICATIONS: ALCOHOLIC HEPATITIS WITH ASCITES TECHNIQUE: Real-time focused scanning was performed of the abdomen, with image documentation. COMPARISON: None. FINDINGS: There is no ascites. Therefore scheduled paracentesis was not performed. IMPRESSION: No ascites. Dictated by: Clifton Thibodeaux M.D. on 07/20/2020 at 11:20 Approved by: Clifton Thibodeaux M.D. on 07/20/2020 at 11:21
== END ==
PROVIDERS: PCP Nurse Practitioner Family; Referring Provider Nurse Practitioner Family; Visit Provider Student in an Organized Health Care Education/Training Program
DX: K70.11 Alcoholic hepatitis with ascites (principal)
CPT/HCPCS: 76705

== ENCOUNTER → 2020-08-06 15:00 | Outpatient (CLI) | payer OTHER, SELFPAY ==
[2020-08-06 16:51] LABS: Alanine Aminotransferase 31 IU/L (<35); Albumin 4.1 g/dL (3.5-5.0); Albumin Globulin Ratio 0.9 (1.0-2.8); Alkaline Phosphatase 117 U/L (38-126); Aspartate Aminotransferase 66 IU/L (14-36); BUN Creatinine Ratio 19.3 (6-22); Bilirubin Total 0.9 mg/dL (0.2-1.3); Blood Urea Nitrogen 11 mg/dL (7-17); Calcium 9.1 mg/dL (8.4-10.2); Carbon Dioxide 31 mmol/L (22-32); Chloride 102 mmol/L (98-107); Estimated Glomerular Filt Rate > 60.0 mL/min (>60); Globulin 4.4 g/dL (1.7-4.1); Glucose 95 mg/dL (70-100); HEMOLYSIS < 15 (0-50); Potassium 3.3 mmol/L (3.4-5.1); Sodium 137 mmol/L (137-145); Total Protein 8.5 g/dL (6.3-8.2)
[2020-08-08 13:09] LABS: Albumin 3.5 g/dL (2.9-4.4); Alpha-1-Globulin 0.4 g/dL (0.0-0.4); Alpha-2-Globulin 0.7 g/dL (0.4-1.0); Gamma Globulin 2.1 g/dL (0.4-1.8); Globulin Total 4.4 g/dL (2.2-3.9); Protein, Total 7.9 g/dL (6.0-8.5)
== END ==
PROVIDERS: PCP Nurse Practitioner Family; Referring Provider Nurse Practitioner Family; Visit Provider Nurse Practitioner Family
DX: D50.9 Iron deficiency anemia, unspecified (principal); K76.9 Liver disease, unspecified; R18.8 Other ascites; Z00.00 Encounter for general adult medical examination without abnormal findings; E88.09 Other disorders of plasma-protein metabolism, not elsewhere classified
CPT/HCPCS: 36415; 80053; 84155; 84165

== ENCOUNTER → 2020-09-10 15:27 | Outpatient (CLI) | payer OTHER, SELFPAY ==
--- NOTE | 2020-09-10 15:35 | DI.RAD.S_ITS ---
PROCEDURE: XR HIP W PEL IF DONE LT 2V INDICATIONS: left hip pain, worsening, no injury TECHNIQUE: AP pelvis with lateral view(s) of the left hip(s). COMPARISON: None. FINDINGS: Bones: No fractures or dislocations and there is only a slight degree of hip joint space narrowing, symmetric. Pelvic ring appears intact. No suspicious bony lesions. Soft tissues: The visualized bowel gas pattern is normal. No suspicious soft tissue calcifications. IMPRESSION: No trauma found, minimal symmetric hip joint degenerative osteoarthritis. Dictated by: Ramon Braden M.D. on 09/10/2020 at 17:04 Approved by: Ramon Braden M.D. on 09/10/2020 at 17:05
[2020-09-10 16:12] LABS: Add Manual Diff / Slide Review NO; Basophils Absolute Auto 100 /uL (0-100); Basophils Percent Auto 0.9 % (0-2); Eosinophils Absolute Auto 100 /uL (0-450); Eosinophils Percent Auto 1.1 % (2-4); Hematocrit 38.4 % (36-46); Hemoglobin 13.3 g/dL (12.0-16.0); Lymphocytes Absolute Auto 1300 /uL (1100-4500); Lymphocytes Percent Auto 20.9 % (25-40); Mean Corpuscular HGB Conc 34.6 % (30-36); Mean Corpuscular Hemoglobin 34.3 PG (26-34); Mean Corpuscular Volume 99.3 fL (80-100); Monocytes Absolute Auto 600 /uL (0-900); Monocytes Percent Auto 9.1 % (3-14); Neutrophils Absolute Auto 4400 /uL (1500-7000); Platelet Count 156 X10^3/uL (150-400); Red Blood Cell Count 3.87 X10^6/uL (4.0-5.2); Red Cell Distribution Width 15.6 % (11.6-14.8); White Blood Cell Count 6.4 X10^3/uL (4.5-11.0)
[2020-09-10 16:15] LABS: Alanine Aminotransferase 39 IU/L (<35); Albumin 4.7 g/dL (3.5-5.0); Alkaline Phosphatase 118 U/L (38-126); Aspartate Aminotransferase 86 IU/L (14-36); BUN Creatinine Ratio 20.7 (6-22); Bilirubin Total 1.7 mg/dL (0.2-1.3); Blood Urea Nitrogen 12 mg/dL (7-17); Calcium 9.7 mg/dL (8.4-10.2); Carbon Dioxide 34 mmol/L (22-32); Chloride 88 mmol/L (98-107); Estimated Glomerular Filt Rate > 60.0 mL/min (>60); Glucose 118 mg/dL (70-100); Sodium 128 mmol/L (137-145)
[2020-09-10 16:17] LABS: INR 1.4 (0.9-1.3); Prothrombin Time 15.7 SECONDS (10.1-12.7)
[2020-09-10 16:31] LABS: Albumin Globulin Ratio 0.9 (1.0-2.8)
[2020-09-10 16:32] LABS: HEMOLYSIS 60 (0-50)
[2020-09-10 16:33] LABS: Total Protein 9.7 g/dL (6.3-8.2)
[2020-09-10 16:34] LABS: Potassium 4.2 mmol/L (3.4-5.1)
[2020-09-11 08:03] LABS: Alpha Fetoprotein 8.2 ng/mL (0.0-8.3)
== END ==
PROVIDERS: Internal Medicine Hematology & Oncology; PCP Nurse Practitioner Family; Referring Provider Student in an Organized Health Care Education/Training Program; Visit Provider Nurse Practitioner Family
DX: K70.31 Alcoholic cirrhosis of liver with ascites (principal); D50.9 Iron deficiency anemia, unspecified; M25.552 Pain in left hip
CPT/HCPCS: 36415; 73502; 80053; 82105; 85025; 85610

== ENCOUNTER → 2020-10-03 09:02 | Outpatient (CLI) | payer OTHER, SELFPAY ==
[2020-10-03 10:45] LABS: COVID19 -Nasal RAPID Negative (Negative)
== END ==
PROVIDERS: PCP Nurse Practitioner Family; Visit Provider Nurse Practitioner Family
DX: Z20.822 Contact with and (suspected) exposure to COVID-19 (principal)
CPT/HCPCS: 87635

== ENCOUNTER → 2021-03-04 15:25 | Outpatient (CLI) | payer OTHER, SELFPAY ==
[2021-03-04 16:46] LABS: Hematocrit 27.5 % (36-46); Hemoglobin 9.2 g/dL (12.0-16.0); Mean Corpuscular HGB Conc 33.4 % (30-36); Mean Corpuscular Hemoglobin 27.5 PG (26-34); Mean Corpuscular Volume 82.3 fL (80-100); Platelet Count 268 X10^3/uL (150-400); Red Blood Cell Count 3.34 X10^6/uL (4.0-5.2); Red Cell Distribution Width 16.1 % (11.6-14.8); White Blood Cell Count 5.9 X10^3/uL (4.5-11.0)
[2021-03-04 17:20] LABS: Alanine Aminotransferase 39 IU/L (<35); Albumin 4.4 g/dL (3.5-5.0); Alkaline Phosphatase 97 U/L (38-126); Aspartate Aminotransferase 53 IU/L (14-36); Bilirubin Total 0.7 mg/dL (0.2-1.3); Blood Urea Nitrogen 18 mg/dL (7-17); Calcium 9.6 mg/dL (8.4-10.2); Carbon Dioxide 22 mmol/L (22-32); Chloride 97 mmol/L (98-107); Estimated Glomerular Filt Rate > 60.0 mL/min (>60); Globulin 4.5 g/dL (1.7-4.1); Glucose 147 mg/dL (70-100); HEMOLYSIS < 15 (0-50); Potassium 4.3 mmol/L (3.4-5.1); Sodium 131 mmol/L (137-145); Total Protein 8.9 g/dL (6.3-8.2)
== END ==
PROVIDERS: PCP Nurse Practitioner Family; Referring Provider Nurse Practitioner Family; Visit Provider Nurse Practitioner Family
DX: Z00.00 Encounter for general adult medical examination without abnormal findings (principal); D50.9 Iron deficiency anemia, unspecified; K76.9 Liver disease, unspecified
CPT/HCPCS: 36415; 80053; 85027

== ENCOUNTER → 2021-04-08 15:45 | Outpatient (CLI) | payer OTHER, SELFPAY ==
[2021-04-08 17:27] LABS: Add Manual Diff / Slide Review NO; Basophils Absolute Auto 100 /uL (0-100); Basophils Percent Auto 1.1 % (0-2); Eosinophils Absolute Auto 100 /uL (0-450); Eosinophils Percent Auto 2.5 % (2-4); Hemoglobin 9.3 g/dL (12.0-16.0); Lymphocytes Absolute Auto 1200 /uL (1100-4500); Lymphocytes Percent Auto 21.1 % (25-40); Mean Corpuscular HGB Conc 32.3 % (30-36); Mean Corpuscular Hemoglobin 25.2 PG (26-34); Mean Corpuscular Volume 78.1 fL (80-100); Monocytes Absolute Auto 600 /uL (0-900); Monocytes Percent Auto 11.5 % (3-14); Neutrophils Absolute Auto 3600 /uL (1500-7000); Neutrophils Percent Auto 63.8 % (50-75); Platelet Count 263 X10^3/uL (150-400); Red Blood Cell Count 3.71 X10^6/uL (4.0-5.2); Red Cell Distribution Width 16.7 % (11.6-14.8); White Blood Cell Count 5.6 X10^3/uL (4.5-11.0)
== END ==
PROVIDERS: PCP Nurse Practitioner Family; Referring Provider Nurse Practitioner Family; Visit Provider Nurse Practitioner Family
DX: D64.9 Anemia, unspecified (principal); I85.00 Esophageal varices without bleeding
CPT/HCPCS: 36415; 85025

== ENCOUNTER → 2021-06-20 11:12 | Outpatient (CLI) | payer OTHER, SELFPAY ==
--- NOTE | 2021-06-20 11:14 | DI.RAD.S_ITS ---
PROCEDURE: XR RIBS BI MIN 4V W CXR1V INDICATIONS: bilat. rib pain, injury TECHNIQUE: 2 views of the bilateral ribs were acquired, along with a single view chest. COMPARISON: None. FINDINGS: Surgical changes and devices: Anterior cervical spine hardware is noted. Bones and chest wall: No acute, displaced fracture. No suspicious bony lesions. Overlying soft tissues appear unremarkable. Lungs and pleura: No pleural effusions or pneumothorax. Lungs appear clear. Mediastinum: Mediastinal contours appear normal. Heart size is normal. IMPRESSION: No acute abnormality. Bone scan may be more sensitive for occult rib fractures. Dictated by: Nithin Arteaga M.D. on 06/20/2021 at 13:21 Approved by: Nithin Arteaga M.D. on 06/20/2021 at 13:23
== END ==
PROVIDERS: PCP Nurse Practitioner Family; Referring Provider Registered Nurse; Visit Provider Registered Nurse
DX: S29.9XXA Unspecified injury of thorax, initial encounter (principal)
CPT/HCPCS: 71111

== ENCOUNTER 2021-08-06 11:44 | Emergency (ER) | payer OTHER, SELFPAY ==
[2021-08-06] VITALS (22 sets, daily range): BP systolic 108–135; BP diastolic 58–83; PULSE 91–135; RESP 13–54; TEMP 36.2–37.6; O2SAT 97–100
[2021-08-06 12:43] LABS: Add Manual Diff / Slide Review NO; Basophils Absolute Auto 100 /uL (0-100); Basophils Percent Auto 0.9 % (0-2); Eosinophils Absolute Auto 100 /uL (0-450); Eosinophils Percent Auto 1.2 % (2-4); Lymphocytes Absolute Auto 900 /uL (1100-4500); Lymphocytes Percent Auto 13.4 % (25-40); Mean Corpuscular HGB Conc 33.6 % (30-36); Mean Corpuscular Hemoglobin 31.2 PG (26-34); Mean Corpuscular Volume 92.8 fL (80-100); Monocytes Absolute Auto 800 /uL (0-900); Monocytes Percent Auto 11.1 % (3-14); Neutrophils Absolute Auto 5100 /uL (1500-7000); Neutrophils Percent Auto 73.4 % (50-75); Platelet Count 245 X10^3/uL (150-400); Red Blood Cell Count 1.92 X10^6/uL (4.0-5.2); Red Cell Distribution Width 17.2 % (11.6-14.8); White Blood Cell Count 6.9 X10^3/uL (4.5-11.0)
[2021-08-06 12:46] LABS: Hematocrit 17.8 % (36-46)
[2021-08-06 12:55] LABS: Alanine Aminotransferase 44 IU/L (<35); Albumin 3.8 g/dL (3.5-5.0); Albumin Globulin Ratio 1.1 (1.0-2.8); Alkaline Phosphatase 112 U/L (38-126); Aspartate Aminotransferase 95 IU/L (14-36); BUN Creatinine Ratio 20.3 (6-22); Bilirubin Total 1.1 mg/dL (0.2-1.3); Blood Urea Nitrogen 12 mg/dL (7-17); Calcium 9.2 mg/dL (8.4-10.2); Carbon Dioxide 26 mmol/L (22-32); Chloride 99 mmol/L (98-107); Estimated Glomerular Filt Rate > 60.0 mL/min (>60); Globulin 3.6 g/dL (1.7-4.1); Glucose 104 mg/dL (70-100); HEMOLYSIS < 15 (0-50); Lipase 397 U/L (23-300); Potassium 3.1 mmol/L (3.4-5.1); Sodium 133 mmol/L (137-145); Total Protein 7.4 g/dL (6.3-8.2)
--- NOTE | 2021-08-06 14:22 | ED_ITS ---
HPI - GI Bleed <Zen Vanegas PA-C - Last Filed: 08/06/21 19:32> General Chief complaint: GI Bleed Stated complaint: anemia Time Seen by Provider: 08/06/21 12:05 Source: patient Mode of arrival: Ambulatory Limitations: no limitations History of Present Illness HPI Narrative: 51-year-old female with past medical history alcoholic cirrhosis, esophageal varices presents to the ED for a low hemoglobin. Patient has a history of alcoholic cirrhosis with esophageal variceal bleeds, has the endoscopy scheduled for tomorrow, got her pre endoscopy labs today, was sent to the ED on account of a low hemoglobin. Patient states she had 2 episodes of bright red bloody emesis, along with bright red blood per rectum last week. Patient states her symptoms lasted only for a day, spontaneously resolved. Patient denies fever, chills, shortness of breath, cough, chest pain, nausea, vomiting, abdominal pain, dysuria, lightheadedness, dizziness, syncope. Patient has had multiple esophageal variceal bleeds in the past for which she has needed blood transfusions. Patient is had a endoscopy performed in the past as well. Related Data Home Medications Medication Instructions Recorded Confirmed calcium carbonate 600 mg (1,500 1 cap PO DAILY 03/08/20 06/20/21 mg)-vitamin D3 500 unit capsule (Calcium 600 with Vitamin D3) multivitamin with minerals 1 tab PO DAILY 03/08/20 06/20/21 (Hair,Skin and Nails) omeprazole 10 mg capsule,delayed 40 mg PO BID 04/25/20 06/20/21 release Hair,Skin and Nails 1 tab DAILY 07/12/20 06/20/21 milk thistle 500 mg capsule 500 mg PO DAILY 07/12/20 06/20/21 Previous Rx's Medication Instructions Recorded spironolactone 50 mg tablet 100 mg PO BID #120 tab 05/31/21 trazodone 50 mg tablet See Rx Instructions .ROUTE 06/14/21 .COMPLEX #30 tab ferrous gluconate 256 mg (28 mg 256 mg PO .every other day #90 tab 06/28/21 iron) tablet furosemide 40 mg tablet 80 mg PO DAILY #90 tab 06/28/21 Allergies Allergy/AdvReac Type Severity Reaction Status Date / Time losartan AdvReac Intermediate Feels Verified 08/06/21 12:34 dopey, spaced out, sore throat, runny nose. lisinopril AdvReac Mild cough Verified 08/06/21 12:34 Review of Systems <Zen Vanegas PA-C - Last Filed: 08/06/21 19:32> Review of Systems Narrative: Patient denies any symptoms today ROS Unobtainable: All systems reviewed & are unremarkable except as noted in HPI and below Constitutional Constitutional: Denies chills, Denies fatigue, Denies fever(s), Denies frequent falls, Denies lethargy and Denies weakness Eyes Eyes: Denies change in vision, Denies eye discharge, Denies irritation and Denies loss of vision ENT Ears, Nose, Mouth, and Throat: Denies change in voice, Denies dizziness, Denies neck pain, Denies sore throat and Denies throat swelling Cardiovascular Cardiovascular: Denies chest pain, Denies irregular heart rhythm, Denies lightheadedness, Denies palpitations, Denies dyspnea, Denies dyspnea on exertion and Denies orthopnea Respiratory Respiratory: Denies cough, Denies dyspnea, Denies dyspnea on exertion and Denies wheezing Gastrointestinal Gastrointestinal: Denies abdominal pain, Denies change in bowel habits, Denies diarrhea, Denies nausea and Denies vomiting Genitourinary Genitourinary: Denies hematuria, Denies flank pain, Denies urinary incontinence and Denies urinary urgency Musculoskeletal Musculoskeletal: Denies back pain, Denies muscle weakness, Denies neck pain, Denies numbness and Denies tingling Integumentary/Breasts Skin/Breast: Denies pruritus, Denies erythema, Denies rash and Denies wounds Neurologic Neurologic: Denies behavioral changes, Denies confusion, Denies dizziness, Denies frequent falls, Denies loss of vision, Denies numbness, Denies tingling and Denies weakness Psychiatric Psychiatric: Denies anxiety, Denies behavioral changes, Denies confusion, Denies depression, Denies homicidal ideation and Denies suicidal ideation Endocrine Endocrine: Denies fatigue, Denies flushing and Denies palpitations Hematologic/Lymphatic Hematologic/Lymphatic: Denies easy bruising Allergic/Immunologic Allergic/Immunologic: Denies urticaria, Denies throat swelling and Denies wheezing Patient History <Zen Vanegas PA-C - Last Filed: 08/06/21 19:32> Medical History Abnormal TSH Ascites (01/2020) Chicken pox Chronic left hip pain (2014) Eczema Elevated blood protein Esophageal varices without bleeding (01/2020) ETOH abuse (2009) Insomnia Iron deficiency anemia Liver disease Mid back pain, chronic (1999) Rib injury Screening for malignant neoplasm of colon Surgical History Anesthesia History of back surgery Social History household members: friend(s) Smoking Status: Current every day smoker Tobacco: How many years used: 35 quit status: not considering quitting second hand exposure: Yes (work) alcohol intake: current substance use type: does not use Smoking Status: Current every day smoker alcohol intake frequency: a few times a week Alcohol type: hard liquor Substance Use Type: does not use Exam <Zen Vanegas PA-C - Last Filed: 08/06/21 19:32> Initial Vital Signs Initial Vital Signs: Vital Signs Temperature 97.1 F L 08/06/21 12:15 Pulse Rate 135 H 08/06/21 12:15 Respiratory Rate 20 08/06/21 12:15 Blood Pressure 123/61 08/06/21 12:15 Pulse Oximetry 100 08/06/21 12:15 Const General: cooperative HENMT Head: normal to inspection Eyes General: appearance normal, both eyes and all related structures Neck Neck: normal visual inspection Chest Chest: normal inspection of the chest Cardio Rate: tachycardic Rhythm: regular rhythm GI Other: Abdomen is soft, distended, nontender to palpation. General: No CVA tenderness Skin General: no rashes or lesions noted Neuro General: patient alert, patient awake and patient oriented x3 <Jacques Hull DO - Last Filed: 08/07/21 07:02> Initial Vital Signs Initial Vital Signs: Vital Signs Temperature 97.1 F L 08/06/21 12:15 Pulse Rate 135 H 08/06/21 12:15 Respiratory Rate 20 08/06/21 12:15 Blood Pressure 123/61 08/06/21 12:15 Pulse Oximetry 100 08/06/21 12:15 Course <Zen Vanegas PA-C - Last Filed: 08/06/21 19:32> Orders Ordered: Discontinued Medications Octreotide Acetate 500 mcg/ (Sodium Chloride) 101 mls @ 10.1 mls/hr IV CONT RAOUL; Protocol Last Admin: 08/06/21 15:39 Dose: Not Given Documented by: DIO Ceftriaxone Sodium 1,000 mg/ (Sodium Chloride) 100 mls @ 200 mls/hr IV NOW ONE Stop: 08/06/21 14:31 Last Infusion: 08/06/21 16:15 Dose: 0 mls/hr Documented by: Admin: 08/06/21 15:34 Dose: 200 mls/hr Documented by: JOSÉ LUIS Octreotide Acetate (Octreotide 100 Mcg/Ml Vial) 50 mcg IV NOW ONE Stop: 08/06/21 14:28 Last Admin: 08/06/21 15:39 Dose: Not Given Documented by: DIO Pantoprazole Sodium (Pantoprazole 40 Mg Vial) 80 mg IV NOW ONE Stop: 08/06/21 14:27 Last Admin: 08/06/21 16:14 Dose: 80 mg Documented by: DIO Vital Signs Vital signs: Vital Signs - 8 hr 08/06/21 12:15 08/06/21 12:20 08/06/21 12:21 Temperature 97.1 F L Pulse Rate 135 H 115 H 115 H Respiratory Rate 20 16 13 Blood Pressure 123/61 135/67 Pulse Oximetry 100 100 100 08/06/21 12:30 08/06/21 13:00 08/06/21 13:30 Temperature Pulse Rate 108 H 109 H 105 H Respiratory Rate 17 54 H 15 Blood Pressure 123/61 120/62 116/65 Pulse Oximetry 100 97 99 08/06/21 14:00 08/06/21 14:30 08/06/21 14:39 Temperature 98.1 F Pulse Rate 97 H 104 H 105 H Respiratory Rate 16 22 20 Blood Pressure 123/65 108/59 L 118/62 Pulse Oximetry 100 100 08/06/21 14:40 08/06/21 14:58 08/06/21 15:00 Temperature 98.2 F Pulse Rate 106 H 104 H 111 H Respiratory Rate 19 20 25 H Blood Pressure 118/62 117/82 117/82 Pulse Oximetry 100 98 08/06/21 15:30 08/06/21 16:00 08/06/21 16:01 Temperature Pulse Rate 103 H 96 H Respiratory Rate 22 22 Blood Pressure 111/60 123/58 L Pulse Oximetry 99 100 08/06/21 16:09 08/06/21 16:26 08/06/21 16:30 Temperature 99.6 F 99.6 F Pulse Rate 100 H 114 H 120 H Respiratory Rate 21 20 20 Blood Pressure 128/62 122/78 122/60 Pulse Oximetry 100 08/06/21 17:00 08/06/21 17:30 08/06/21 17:35 Temperature 98.2 F Pulse Rate 91 H 95 H 109 H Respiratory Rate 18 20 23 Blood Pressure 124/67 Pulse Oximetry 98 08/06/21 17:36 Temperature Pulse Rate Respiratory Rate Blood Pressure 123/83 Pulse Oximetry <Jacques Hull, DO - Last Filed: 08/07/21 07:02> Orders Ordered: Discontinued Medications Octreotide Acetate 500 mcg/ (Sodium Chloride) 101 mls @ 10.1 mls/hr IV CONT RAOUL; Protocol Last Admin: 08/06/21 15:39 Dose: Not Given Documented by: DIO Ceftriaxone Sodium 1,000 mg/ (Sodium Chloride) 100 mls @ 200 mls/hr IV NOW ONE Stop: 08/06/21 14:31 Last Infusion: 08/06/21 16:15 Dose: 0 mls/hr Documented by: Admin: 08/06/21 15:34 Dose: 200 mls/hr Documented by: JOSÉ LUIS Octreotide Acetate (Octreotide 100 Mcg/Ml Vial) 50 mcg IV NOW ONE Stop: 08/06/21 14:28 Last Admin: 08/06/21 15:39 Dose: Not Given Documented by: DIO Pantoprazole Sodium (Pantoprazole 40 Mg Vial) 80 mg IV NOW ONE Stop: 08/06/21 14:27 Last Admin: 08/06/21 16:14 Dose: 80 mg Documented by: DIO Vital Signs Vital signs: Vital Signs - 8 hr 08/06/21 12:15 08/06/21 12:20 08/06/21 12:21 Temperature 97.1 F L Pulse Rate 135 H 115 H 115 H Respiratory Rate 20 16 13 Blood Pressure 123/61 135/67 Pulse Oximetry 100 100 100 08/06/21 12:30 08/06/21 13:00 08/06/21 13:30 Temperature Pulse Rate 108 H 109 H 105 H Respiratory Rate 17 54 H 15 Blood Pressure 123/61 120/62 116/65 Pulse Oximetry 100 97 99 08/06/21 14:00 08/06/21 14:30 08/06/21 14:39 Temperature 98.1 F Pulse Rate 97 H 104 H 105 H Respiratory Rate 16 22 20 Blood Pressure 123/65 108/59 L 118/62 Pulse Oximetry 100 100 08/06/21 14:40 08/06/21 14:58 08/06/21 15:00 Temperature 98.2 F Pulse Rate 106 H 104 H 111 H Respiratory Rate 19 20 25 H Blood Pressure 118/62 117/82 117/82 Pulse Oximetry 100 98 08/06/21 15:30 08/06/21 16:00 08/06/21 16:01 Temperature Pulse Rate 103 H 96 H Respiratory Rate 22 22 Blood Pressure 111/60 123/58 L Pulse Oximetry 99 100 08/06/21 16:09 08/06/21 16:26 08/06/21 16:30 Temperature 99.6 F 99.6 F Pulse Rate 100 H 114 H 120 H Respiratory Rate 21 20 20 Blood Pressure 128/62 122/78 122/60 Pulse Oximetry 100 08/06/21 17:00 08/06/21 17:30 08/06/21 17:35 Temperature 98.2 F Pulse Rate 91 H 95 H 109 H Respiratory Rate 18 20 23 Blood Pressure 124/67 Pulse Oximetry 98 08/06/21 17:36 Temperature Pulse Rate Respiratory Rate Blood Pressure 123/83 Pulse Oximetry MDM - GI Bleed <Zen Vanegas PA-C - Last Filed: 08/06/21 19:32> Lab Data Lab results narrative: H&H 6 over 17.8 -> 7.7/22.5 post 2 units of prbcs Result diagrams: 08/06/21 18:04 08/06/21 12:25 Labs: Lab Results 08/06/21 08/06/21 08/06/21 Range/Units 12:25 12:25 12:25 WBC 6.9 (4.5-11.0) X10^3/uL RBC 1.92 L (4.0-5.2) X10^6/uL Hgb 6.0 L* (12.0-16.0) g/dL Hct 17.8 L* (36-46) % MCV 92.8 (80-100) fL MCH 31.2 (26-34) PG MCHC 33.6 (30-36) % RDW 17.2 H (11.6-14.8) % Plt Count 245 (150-400) X10^3/uL Neut % (Auto) 73.4 (50-75) % Lymph % (Auto) 13.4 L (25-40) % [place] % (Auto) 11.1 (3-14) % Eos % (Auto) 1.2 L (2-4) % Baso % (Auto) 0.9 (0-2) % Neut # (Auto) 5100 (3737-0061) /uL Lymph # (Auto) 900 L (9009-0556) /uL [place] # (Auto) 800 (0-900) /uL Eos # (Auto) 100 (0-450) /uL Baso # (Auto) 100 (0-100) /uL Sodium 133 L (137-145) mmol/L Potassium 3.1 L (3.4-5.1) mmol/L Chloride 99 (98-107) mmol/L Carbon Dioxide 26 (22-32) mmol/L BUN 12 (7-17) mg/dL Creatinine 0.59 (0.52-1.04) mg/dL Estimated GFR > 60.0 (>60) mL/min BUN/Creatinine Ratio 20.3 (6-22) Glucose 104 H (70-100) mg/dL Calcium 9.2 (8.4-10.2) mg/dL Total Bilirubin 1.1 (0.2-1.3) mg/dL AST 95 H (14-36) IU/L ALT 44 H (<35) IU/L Alkaline Phosphatase 112 (38-126) U/L Total Protein 7.4 (6.3-8.2) g/dL Albumin 3.8 (3.5-5.0) g/dL Globulin 3.6 (1.7-4.1) g/dL Albumin/Globulin Ratio 1.1 (1.0-2.8) Lipase 397 H (23-300) U/L Blood Type A Negative Antibody Screen Negative Crossmatch See Detail 08/06/21 Range/Units 18:04 WBC 5.4 (4.5-11.0) X10^3/uL RBC 2.50 L (4.0-5.2) X10^6/uL Hgb 7.7 L (12.0-16.0) g/dL Hct 22.5 L (36-46) % MCV 90.1 (80-100) fL MCH 30.7 (26-34) PG MCHC 34.1 (30-36) % RDW 17.5 H (11.6-14.8) % Plt Count 214 (150-400) X10^3/uL Neut % (Auto) 61.4 (50-75) % Lymph % (Auto) 24.0 L (25-40) % [place] % (Auto) 11.9 (3-14) % Eos % (Auto) 1.8 L (2-4) % Baso % (Auto) 0.9 (0-2) % Neut # (Auto) 3300 (2150-3640) /uL Lymph # (Auto) 1300 (5860-6528) /uL [place] # (Auto) 600 (0-900) /uL Eos # (Auto) 100 (0-450) /uL Baso # (Auto) 0 (0-100) /uL Sodium (137-145) mmol/L Potassium (3.4-5.1) mmol/L Chloride (98-107) mmol/L Carbon Dioxide (22-32) mmol/L BUN (7-17) mg/dL Creatinine (0.52-1.04) mg/dL Estimated GFR (>60) mL/min BUN/Creatinine Ratio (6-22) Glucose (70-100) mg/dL Calcium (8.4-10.2) mg/dL Total Bilirubin (0.2-1.3) mg/dL AST (14-36) IU/L ALT (<35) IU/L Alkaline Phosphatase (38-126) U/L Total Protein (6.3-8.2) g/dL Albumin (3.5-5.0) g/dL Globulin (1.7-4.1) g/dL Albumin/Globulin Ratio (1.0-2.8) Lipase (23-300) U/L Blood Type Antibody Screen Crossmatch [facility] Narrative Medical decision making narrative: 51-year-old female with past medical history alcoholic cirrhosis, esophageal varices presents to the ED for a low hemoglobin. Concern for variceal bleeds versus anemia. Will get labs, type and screen. Will reassess. H&H 17.8. Will transfuse with of PRBCs. Will recheck H&H. Will start Pr otonix, octreotide, ceftriaxone. Patient's GI specialist Dr. El Becerra consulted, he recommends hospitalization for an endoscopy. Also recommends Protonix, octreotide, ceftriaxone. Patient counseled on need for hospitalization, patient verbalizes understanding. Patient is A&O x3, not intoxicated, capable of making decisions. Patient declines the octreotide, hospitalization, verbalizes that she understands the risks associated with going home tonight. Patient states that she prefers to ke ep her outpatient endoscopy appointment scheduled for tomorrow. Dr. Becerra was notified of this plan and expects to see patient tomorrow. Will recheck H&H after the 2 units of PRBCs, discharge patient home if H&H stable. H&H 7.7/22.5 post 2 units of prbcs. Patiebt's vitals remained stable. Discussed ED return precautions with patient. Patient verbalized understanding. Patient will go to her outpatient endoscopy appointment tomorrow with Dr. Becerra. Discharge patient home. <Jacques Hull, - Last Filed: 08/07/21 07:02> Lab Data Labs: Lab Results 08/06/21 08/06/21 08/06/21 Range/Units 12:25 12:25 12:25 WBC 6.9 (4.5-11.0) X10^3/uL RBC 1.92 L (4.0-5.2) X10^6/uL Hgb 6.0 L* (12.0-16.0) g/dL Hct 17.8 L* (36-46) % MCV 92.8 (80-100) fL MCH 31.2 (26-34) PG MCHC 33.6 (30-36) % RDW 17.2 H (11.6-14.8) % Plt Count 245 (150-400) X10^3/uL Neut % (Auto) 73.4 (50-75) % Lymph % (Auto) 13.4 L (25-40) % [place] % (Auto) 11.1 (3-14) % Eos % (Auto) 1.2 L (2-4) % Baso % (Auto) 0.9 (0-2) % Neut # (Auto) 5100 (8084-7351) /uL Lymph # (Auto) 900 L (5304-4965) /uL [place] # (Auto) 800 (0-900) /uL Eos # (Auto) 100 (0-450) /uL Baso # (Auto) 100 (0-100) /uL Sodium 133 L (137-145) mmol/L Potassium 3.1 L (3.4-5.1) mmol/L Chloride 99 (98-107) mmol/L Carbon Dioxide 26 (22-32) mmol/L BUN 12 (7-17) mg/dL Creatinine 0.59 (0.52-1.04) mg/dL Estimated GFR > 60.0 (>60) mL/min BUN/Creatinine Ratio 20.3 (6-22) Glucose 104 H (70-100) mg/dL Calcium 9.2 (8.4-10.2) mg/dL Total Bilirubin 1.1 (0.2-1.3) mg/dL AST 95 H (14-36) IU/L ALT 44 H (<35) IU/L Alkaline Phosphatase 112 (38-126) U/L Total Protein 7.4 (6.3-8.2) g/dL Albumin 3.8 (3.5-5.0) g/dL Globulin 3.6 (1.7-4.1) g/dL Albumin/Globulin Ratio 1.1 (1.0-2.8) Lipase 397 H (23-300) U/L Blood Type A Negative Antibody Screen Negative Crossmatch See Detail 08/06/21 Range/Units 18:04 WBC 5.4 (4.5-11.0) X10^3/uL RBC 2.50 L (4.0-5.2) X10^6/uL Hgb 7.7 L (12.0-16.0) g/dL Hct 22.5 L (36-46) % MCV 90.1 (80-100) fL MCH 30.7 (26-34) PG MCHC 34.1 (30-36) % RDW 17.5 H (11.6-14.8) % Plt Count 214 (150-400) X10^3/uL Neut % (Auto) 61.4 (50-75) % Lymph % (Auto) 24.0 L (25-40) % [place] % (Auto) 11.9 (3-14) % Eos % (Auto) 1.8 L (2-4) % Baso % (Auto) 0.9 (0-2) % Neut # (Auto) 3300 (8781-1347) /uL Lymph # (Auto) 1300 (9707-1297) /uL [place] # (Auto) 600 (0-900) /uL Eos # (Auto) 100 (0-450) /uL Baso # (Auto) 0 (0-100) /uL Sodium (137-145) mmol/L Potassium (3.4-5.1) mmol/L Chloride (98-107) mmol/L Carbon Dioxide (22-32) mmol/L BUN (7-17) mg/dL Creatinine (0.52-1.04) mg/dL Estimated GFR (>60) mL/min BUN/Creatinine Ratio (6-22) Glucose (70-100) mg/dL Calcium (8.4-10.2) mg/dL Total Bilirubin (0.2-1.3) mg/dL AST (14-36) IU/L ALT (<35) IU/L Alkaline Phosphatase (38-126) U/L Total Protein (6.3-8.2) g/dL Albumin (3.5-5.0) g/dL Globulin (1.7-4.1) g/dL Albumin/Globulin Ratio (1.0-2.8) Lipase (23-300) U/L Blood Type Antibody Screen Crossmatch Discharge Plan Departure Patient Disposition: Home Clinical Impression: GI bleed Instructions: Gastrointestinal Bleeding Activity Restrictions/Additional Instructions: You were evaluated in the ED today for a GI bleed and anemia. Your hemoglobin was 6 when you came into the ED, you received 2 units of blood transfusion which caused your hemoglobin to go up to 7.7. You have a endoscopy appointment tomorrow with Dr. Becerra at [facility]. Please ensure you make it to that appointment. If you feel worsening symptoms including shortness of breath, lightheadedness, dizziness, loss of consciousness, chest pain, vomiting, please return to the ED. Prescriptions: No Action spironolactone 50 mg tablet 100 mg PO BID Qty: 120 2RF Rx Instructions: please call her when ready trazodone 50 mg tablet See Rx Instructions .ROUTE .COMPLEX Qty: 30 0RF Dose Instruction: TAKE 1 TABLET BY MOUTH AT BEDTIME NEEDED FOR INSOMNIA Rx Instructions: TAKE 1 TABLET BY MOUTH AT BEDTIME NEEDED FOR INSOMNIA furosemide 40 mg tablet 80 mg PO DAILY Qty: 90 1RF ferrous gluconate 256 mg (28 mg iron) tablet 256 mg PO .every other day Qty: 90 2RF calcium carbonate-vitamin D3 [Calcium 600 with Vitamin D3] 600 mg(1,500mg) - 500 unit capsule 1 cap PO DAILY 0RF multivitamin with minerals [Hair,Skin and Nails] Tablet 1 tab PO DAILY 0RF omeprazole 10 mg Capsule,Delayed Release(Dr/Ec) 40 mg PO BID 0RF milk thistle 500 mg Capsule 500 mg PO DAILY 0RF Hair,Skin and Nails 1 tab DAILY 0RF Referrals: Saskia Howell ARNP [Primary Care Provider] - <Jacques Hull DO - Last Filed: 08/07/21 07:02> Cosign ED Attending Cosignature Attestation: Dr Hull Co-Sign Statement: I was available for consultation during this patient's emergency department visit. This chart is signed by myself for administrative purposes only. I did not have direct contact with this patient during this visit. They were seen independently by the APC.
[2021-08-06] MEDS: cefTRIAXone 1,000 MG in SODIUM CHLORIDE 0.9% 100 ML 200 ML IV (15:34)
[2021-08-06] MEDS: PANTOPRAZOLE 40 MG VIAL 80 MG IV (16:14)
[2021-08-06 18:10] LABS: Add Manual Diff / Slide Review NO; Basophils Absolute Auto 0 /uL (0-100); Basophils Percent Auto 0.9 % (0-2); Eosinophils Absolute Auto 100 /uL (0-450); Eosinophils Percent Auto 1.8 % (2-4); Hematocrit 22.5 % (36-46); Hemoglobin 7.7 g/dL (12.0-16.0); Lymphocytes Absolute Auto 1300 /uL (1100-4500); Mean Corpuscular HGB Conc 34.1 % (30-36); Mean Corpuscular Hemoglobin 30.7 PG (26-34); Mean Corpuscular Volume 90.1 fL (80-100); Monocytes Absolute Auto 600 /uL (0-900); Monocytes Percent Auto 11.9 % (3-14); Neutrophils Absolute Auto 3300 /uL (1500-7000); Neutrophils Percent Auto 61.4 % (50-75); Platelet Count 214 X10^3/uL (150-400); Red Cell Distribution Width 17.5 % (11.6-14.8); White Blood Cell Count 5.4 X10^3/uL (4.5-11.0)
== END 2021-08-06 19:26 | disposition home or self-care (01) ==
PROVIDERS: Emergency Medicine; Emergency Provider Student in an Organized Health Care Education/Training Program; PCP Nurse Practitioner Family
DX: K92.0 Hematemesis (principal); K62.5 Hemorrhage of anus and rectum; D64.9 Anemia, unspecified
CPT/HCPCS: 36415; 36430; 80053; 83690; 85025; 86850; 86900; 86901; 96365; 96375; 99284; P9016; C9113; J0696

== ENCOUNTER → 2021-08-13 16:05 | Outpatient (CLI) | payer OTHER, SELFPAY ==
--- NOTE | 2021-08-13 16:06 | DI.MG.S_ITS ---
BILATERAL DIGITAL SCREENING MAMMOGRAM 3D/2D WITH CAD: 08/13/2021 CLINICAL: Routine screening. Comparison is made to exams dated: 11/18/2019 mammogram, 11/01/2019 mammogram - [facility], and 08/21/2016 mammogram - [facility]. The tissue of both breasts is heterogeneously dense. This may lower the sensitivity of mammography. Current study was also evaluated with a Computer Aided Detection (CAD) system. There are benign calcifications in both breasts. There also are benign vascular calcifications in both breasts. No significant masses, calcifications, or other findings are seen in either breast. There has been no significant interval change. IMPRESSION: BENIGN There is no mammographic evidence of malignancy. A 1 year screening mammogram is recommended. This exam was interpreted at Station ID: [id number]. NOTE: For mammograms, a report in lay terms will be sent to the patient. Approximately 15% of breast malignancies will not be visualized mammographically. In the management of a palpable breast mass, a negative mammogram must not discourage biopsy of a clinically suspicious lesion. Electronically Signed By: Alberto casas/jemal:08/14/2021 09:47:42 letter sent: Normal Exam ACR BI-RADS Category 2: Benign Finding(s) 3342F
== END ==
PROVIDERS: PCP Nurse Practitioner Family; Referring Provider Nurse Practitioner Family; Visit Provider Nurse Practitioner Family
DX: Z12.31 Encounter for screening mammogram for malignant neoplasm of breast (principal)
CPT/HCPCS: 77063; 77067

== ENCOUNTER → 2021-10-03 15:17 | Outpatient (CLI) | payer OTHER, SELFPAY ==
[2021-10-03 15:45] LABS: Add Manual Diff / Slide Review NO; Basophils Absolute Auto 0 /uL (0-100); Basophils Percent Auto 0.6 % (0-2); Eosinophils Absolute Auto 100 /uL (0-450); Hematocrit 28.9 % (36-46); Hemoglobin 9.5 g/dL (12.0-16.0); Lymphocytes Absolute Auto 1200 /uL (1100-4500); Lymphocytes Percent Auto 16.7 % (25-40); Mean Corpuscular HGB Conc 32.8 % (30-36); Mean Corpuscular Hemoglobin 25.9 PG (26-34); Mean Corpuscular Volume 79.2 fL (80-100); Monocytes Absolute Auto 900 /uL (0-900); Monocytes Percent Auto 12.2 % (3-14); Neutrophils Absolute Auto 4900 /uL (1500-7000); Neutrophils Percent Auto 68.5 % (50-75); Platelet Count 236 X10^3/uL (150-400); Red Blood Cell Count 3.66 X10^6/uL (4.0-5.2); Red Cell Distribution Width 17.8 % (11.6-14.8); White Blood Cell Count 7.1 X10^3/uL (4.5-11.0)
[2021-10-03 17:27] LABS: Alanine Aminotransferase 28 IU/L (<35); Albumin 4.4 g/dL (3.5-5.0); Alkaline Phosphatase 132 U/L (38-126); Aspartate Aminotransferase 76 IU/L (14-36); BUN Creatinine Ratio 16.7 (6-22); Bilirubin Total 1.1 mg/dL (0.2-1.3); Blood Urea Nitrogen 11 mg/dL (7-17); Calcium 9.6 mg/dL (8.4-10.2); Carbon Dioxide 35 mmol/L (22-32); Chloride 84 mmol/L (98-107); Estimated Glomerular Filt Rate > 60.0 mL/min (>60); Globulin 4.4 g/dL (1.7-4.1); Glucose 85 mg/dL (70-100); HEMOLYSIS < 15 (0-50); Potassium 3.4 mmol/L (3.4-5.1); Sodium 129 mmol/L (137-145); Total Protein 8.8 g/dL (6.3-8.2)
== END ==
PROVIDERS: PCP Nurse Practitioner Family; Referring Provider Nurse Practitioner Family; Visit Provider Nurse Practitioner Family
DX: D50.9 Iron deficiency anemia, unspecified (principal); K92.2 Gastrointestinal hemorrhage, unspecified; K76.9 Liver disease, unspecified
CPT/HCPCS: 36415; 80053; 85025

== ENCOUNTER → 2021-12-09 15:44 | Outpatient (CLI) | payer OTHER, SELFPAY ==
[2021-12-09 16:57] LABS: Add Manual Diff / Slide Review NO; Basophils Absolute Auto 0 /uL (0-100); Basophils Percent Auto 0.8 % (0-2); Eosinophils Absolute Auto 100 /uL (0-450); Eosinophils Percent Auto 1.2 % (2-4); Hemoglobin 9.6 g/dL (12.0-16.0); Lymphocytes Absolute Auto 800 /uL (1100-4500); Lymphocytes Percent Auto 14.6 % (25-40); Mean Corpuscular HGB Conc 34.4 % (30-36); Mean Corpuscular Hemoglobin 31.2 PG (26-34); Mean Corpuscular Volume 90.6 fL (80-100); Monocytes Absolute Auto 600 /uL (0-900); Monocytes Percent Auto 10.8 % (3-14); Neutrophils Absolute Auto 3900 /uL (1500-7000); Neutrophils Percent Auto 72.6 % (50-75); Platelet Count 236 X10^3/uL (150-400); Red Blood Cell Count 3.09 X10^6/uL (4.0-5.2); White Blood Cell Count 5.4 X10^3/uL (4.5-11.0)
[2021-12-09 17:18] LABS: INR 1.4 (0.9-1.3); Prothrombin Time 15.6 SECONDS (10.1-12.7)
[2021-12-09 17:29] LABS: Alanine Aminotransferase 37 IU/L (<35); Albumin 4.2 g/dL (3.5-5.0); Albumin Globulin Ratio 0.9 (1.0-2.8); Alkaline Phosphatase 170 U/L (38-126); Aspartate Aminotransferase 120 IU/L (14-36); BUN Creatinine Ratio 18.9 (6-22); Blood Urea Nitrogen 14 mg/dL (7-17); Calcium 9.3 mg/dL (8.4-10.2); Carbon Dioxide 34 mmol/L (22-32); Chloride 84 mmol/L (98-107); Estimated Glomerular Filt Rate > 60.0 mL/min (>60); Globulin 4.6 g/dL (1.7-4.1); Glucose 101 mg/dL (70-100); HEMOLYSIS < 15 (0-50); Sodium 127 mmol/L (137-145); Total Protein 8.8 g/dL (6.3-8.2)
[2021-12-09 17:58] LABS: Potassium 2.5 mmol/L (3.4-5.1)
== END ==
PROVIDERS: PCP Nurse Practitioner Family; Referring Provider Nurse Practitioner Family; Visit Provider Nurse Practitioner Family
DX: D50.9 Iron deficiency anemia, unspecified (principal); E87.1 Hypo-osmolality and hyponatremia; F10.10 Alcohol abuse, uncomplicated; K74.60 Unspecified cirrhosis of liver; Z00.00 Encounter for general adult medical examination without abnormal findings
CPT/HCPCS: 36415; 80053; 85025; 85610

== ENCOUNTER → 2021-12-11 16:23 | Outpatient (CLI) | payer OTHER, SELFPAY ==
[2021-12-11 17:20] LABS: HEMOLYSIS < 15 (0-50); Iron 32 ug/dL (37-170)
[2021-12-11 17:22] LABS: Alanine Aminotransferase 37 IU/L (<35); Albumin 4.2 g/dL (3.5-5.0); Alkaline Phosphatase 145 U/L (38-126); Aspartate Aminotransferase 120 IU/L (14-36); BUN Creatinine Ratio 23.9 (6-22); Bilirubin Total 1.6 mg/dL (0.2-1.3); Blood Urea Nitrogen 16 mg/dL (7-17); Carbon Dioxide 35 mmol/L (22-32); Chloride 83 mmol/L (98-107); Estimated Glomerular Filt Rate > 60.0 mL/min (>60); Globulin 4.3 g/dL (1.7-4.1); Glucose 86 mg/dL (70-100); HEMOLYSIS < 15 (0-50); Potassium 2.8 mmol/L (3.4-5.1); Sodium 127 mmol/L (137-145); Total Protein 8.5 g/dL (6.3-8.2)
[2021-12-11 17:31] LABS: Percent Iron Saturation 6 % (15-50); Total Iron Binding Capacity 511 ug/dL (265-497); Transferrin 395 mg/dL (206-381)
[2021-12-11 17:57] LABS: Ferritin 19 ng/mL (11-264)
== END ==
PROVIDERS: PCP Nurse Practitioner Family; Referring Provider Nurse Practitioner Family; Visit Provider Nurse Practitioner Family
DX: D50.0 Iron deficiency anemia secondary to blood loss (chronic) (principal); E87.1 Hypo-osmolality and hyponatremia; E87.6 Hypokalemia; E88.09 Other disorders of plasma-protein metabolism, not elsewhere classified; F10.10 Alcohol abuse, uncomplicated; K70.30 Alcoholic cirrhosis of liver without ascites
CPT/HCPCS: 36415; 80053; 82728; 83540; 83550

== ENCOUNTER → 2021-12-18 15:33 | Outpatient (CLI) | payer OTHER, SELFPAY ==
[2021-12-18 16:00] LABS: Add Manual Diff / Slide Review NO; Basophils Absolute Auto 100 /uL (0-100); Basophils Percent Auto 0.7 % (0-2); Eosinophils Absolute Auto 100 /uL (0-450); Eosinophils Percent Auto 1.8 % (2-4); Hematocrit 25.2 % (36-46); Hemoglobin 8.6 g/dL (12.0-16.0); Lymphocytes Absolute Auto 1000 /uL (1100-4500); Lymphocytes Percent Auto 12.2 % (25-40); Mean Corpuscular HGB Conc 34.3 % (30-36); Mean Corpuscular Hemoglobin 31.3 PG (26-34); Mean Corpuscular Volume 91.3 fL (80-100); Monocytes Absolute Auto 1000 /uL (0-900); Neutrophils Absolute Auto 5900 /uL (1500-7000); Neutrophils Percent Auto 73.3 % (50-75); Platelet Count 255 X10^3/uL (150-400); Red Blood Cell Count 2.76 X10^6/uL (4.0-5.2); Red Cell Distribution Width 17.7 % (11.6-14.8)
[2021-12-18 16:21] LABS: Alanine Aminotransferase 42 IU/L (<35); Albumin Globulin Ratio 0.9 (1.0-2.8); Alkaline Phosphatase 159 U/L (38-126); Aspartate Aminotransferase 124 IU/L (14-36); Bilirubin Total 1.7 mg/dL (0.2-1.3); Blood Urea Nitrogen 10 mg/dL (7-17); Calcium 8.8 mg/dL (8.4-10.2); Carbon Dioxide 30 mmol/L (22-32); Chloride 85 mmol/L (98-107); Estimated Glomerular Filt Rate > 60.0 mL/min (>60); Globulin 4.5 g/dL (1.7-4.1); Glucose 91 mg/dL (70-100); HEMOLYSIS < 15 (0-50); Potassium 3.3 mmol/L (3.4-5.1); Sodium 126 mmol/L (137-145); Total Protein 8.5 g/dL (6.3-8.2)
== END ==
PROVIDERS: PCP Nurse Practitioner Family; Referring Provider Nurse Practitioner Family; Visit Provider Nurse Practitioner Family
DX: E87.6 Hypokalemia (principal); E87.1 Hypo-osmolality and hyponatremia; K74.60 Unspecified cirrhosis of liver
CPT/HCPCS: 36415; 80053; 85025

== ENCOUNTER → 2022-01-03 12:04 | Outpatient (CLI) | payer OTHER, SELFPAY ==
[2022-01-03 13:11] LABS: Add Manual Diff / Slide Review NO; Basophils Absolute Auto 0 /uL (0-100); Basophils Percent Auto 0.8 % (0-2); Eosinophils Absolute Auto 100 /uL (0-450); Eosinophils Percent Auto 1.8 % (2-4); Hematocrit 28.4 % (36-46); Hemoglobin 9.5 g/dL (12.0-16.0); Lymphocytes Absolute Auto 800 /uL (1100-4500); Lymphocytes Percent Auto 13.8 % (25-40); Mean Corpuscular HGB Conc 33.5 % (30-36); Mean Corpuscular Hemoglobin 31.5 PG (26-34); Mean Corpuscular Volume 94.1 fL (80-100); Monocytes Absolute Auto 500 /uL (0-900); Monocytes Percent Auto 9.2 % (3-14); Neutrophils Absolute Auto 4400 /uL (1500-7000); Neutrophils Percent Auto 74.4 % (50-75); Platelet Count 213 X10^3/uL (150-400); Red Blood Cell Count 3.02 X10^6/uL (4.0-5.2); Red Cell Distribution Width 16.5 % (11.6-14.8); White Blood Cell Count 5.9 X10^3/uL (4.5-11.0)
== END ==
PROVIDERS: PCP Family Medicine; Referring Provider Family Medicine; Visit Provider Family Medicine
DX: R79.0 Abnormal level of blood mineral (principal)
CPT/HCPCS: 36415; 85025

== ENCOUNTER → 2022-01-20 16:21 | Outpatient (CLI) | payer OTHER, SELFPAY ==
[2022-01-20 16:46] LABS: Add Manual Diff / Slide Review NO; Basophils Absolute Auto 100 /uL (0-100); Basophils Percent Auto 1.4 % (0-2); Eosinophils Absolute Auto 100 /uL (0-450); Eosinophils Percent Auto 1.8 % (2-4); Hematocrit 28.3 % (36-46); Hemoglobin 9.8 g/dL (12.0-16.0); Lymphocytes Absolute Auto 800 /uL (1100-4500); Mean Corpuscular HGB Conc 34.5 % (30-36); Mean Corpuscular Hemoglobin 31.5 PG (26-34); Mean Corpuscular Volume 91.2 fL (80-100); Monocytes Absolute Auto 800 /uL (0-900); Monocytes Percent Auto 12.3 % (3-14); Neutrophils Absolute Auto 4600 /uL (1500-7000); Neutrophils Percent Auto 71.5 % (50-75); Platelet Count 222 X10^3/uL (150-400); Red Blood Cell Count 3.11 X10^6/uL (4.0-5.2); Red Cell Distribution Width 16.8 % (11.6-14.8); White Blood Cell Count 6.4 X10^3/uL (4.5-11.0)
[2022-01-20 17:08] LABS: Alanine Aminotransferase 33 IU/L (<35); Albumin 4.2 g/dL (3.5-5.0); Albumin Globulin Ratio 0.9 (1.0-2.8); Alkaline Phosphatase 187 U/L (38-126); Aspartate Aminotransferase 126 IU/L (14-36); BUN Creatinine Ratio 13.5 (6-22); Bilirubin Total 2.1 mg/dL (0.2-1.3); Blood Urea Nitrogen 10 mg/dL (7-17); Calcium 8.9 mg/dL (8.4-10.2); Carbon Dioxide 30 mmol/L (22-32); Chloride 89 mmol/L (98-107); Estimated Glomerular Filt Rate > 60 mL/min (>60); Globulin 4.7 g/dL (1.7-4.1); Glucose 98 mg/dL (70-100); HEMOLYSIS 16 (0-50); Potassium 4.1 mmol/L (3.4-5.1); Sodium 128 mmol/L (137-145); Total Protein 8.9 g/dL (6.3-8.2)
== END ==
PROVIDERS: PCP Family Medicine; Referring Provider Family Medicine; Visit Provider Family Medicine
DX: E87.1 Hypo-osmolality and hyponatremia (principal); E87.6 Hypokalemia
CPT/HCPCS: 36415; 80053; 85025

== ENCOUNTER → 2022-08-13 16:34 | Outpatient (CLI) | payer OTHER, SELFPAY ==
[2022-08-13 17:04] LABS: Alanine Aminotransferase 32 IU/L (<35); Albumin 4.1 g/dL (3.5-5.0); Albumin Globulin Ratio 0.9 (1.0-2.8); Alkaline Phosphatase 134 U/L (38-126); Aspartate Aminotransferase 87 IU/L (14-36); BUN Creatinine Ratio 11.5 (6-22); Bilirubin Total 2.6 mg/dL (0.2-1.3); Blood Urea Nitrogen 10 mg/dL (7-17); Calcium 9.2 mg/dL (8.4-10.2); Carbon Dioxide 37 mmol/L (22-32); Chloride 79 mmol/L (98-107); Estimated Glomerular Filt Rate > 60 mL/min (>60); Globulin 4.7 g/dL (1.7-4.1); Glucose 132 mg/dL (70-100); HEMOLYSIS 17 (0-50); Sodium 127 mmol/L (137-145); Total Protein 8.8 g/dL (6.3-8.2)
== END ==
PROVIDERS: PCP Family Medicine; Referring Provider Physician Assistant; Visit Provider Physician Assistant
DX: K70.31 Alcoholic cirrhosis of liver with ascites (principal)
CPT/HCPCS: 36415; 80053

== ENCOUNTER 2023-04-07 11:37 | Emergency (ER) | payer OTHER, SELFPAY ==
[2023-04-07] VITALS (12 sets, daily range): BP systolic 104–138; BP diastolic 61–72; PULSE 56–112; RESP 14–29; TEMP 36.6; O2SAT 99–100
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
[2023-04-07 12:26] LABS: Add Manual Diff / Slide Review NO; Basophils Absolute Auto 0 /uL (0-100); Basophils Percent Auto 0.6 % (0-2); Eosinophils Absolute Auto 400 /uL (0-450); Eosinophils Percent Auto 5.8 % (2-4); Hematocrit 27.3 % (36-46); Hemoglobin 9.4 g/dL (12.0-16.0); Lymphocytes Absolute Auto 400 /uL (1100-4500); Lymphocytes Percent Auto 6.2 % (25-40); Mean Corpuscular HGB Conc 34.5 % (30-36); Mean Corpuscular Hemoglobin 33.2 PG (26-34); Mean Corpuscular Volume 96.2 fL (80-100); Monocytes Absolute Auto 700 /uL (0-900); Monocytes Percent Auto 10.8 % (3-14); Neutrophils Absolute Auto 5100 /uL (1500-7000); Neutrophils Percent Auto 76.6 % (50-75); Platelet Count 286 X10^3/uL (150-400); Red Blood Cell Count 2.84 X10^6/uL (4.0-5.2); Red Cell Distribution Width 14.2 % (11.6-14.8); White Blood Cell Count 6.7 X10^3/uL (4.5-11.0)
[2023-04-07 12:44] LABS: Alanine Aminotransferase 36 IU/L (<35); Albumin 4.1 g/dL (3.5-5.0); Albumin Globulin Ratio 1.1 (1.0-2.8); Alkaline Phosphatase 110 U/L (38-126); Aspartate Aminotransferase 83 IU/L (14-36); BUN Creatinine Ratio 30.6 (6-22); Bilirubin Total 1.7 mg/dL (0.2-1.3); Blood Urea Nitrogen 33 mg/dL (7-17); Calcium 9.2 mg/dL (8.4-10.2); Carbon Dioxide 20 mmol/L (22-32); Chloride 97 mmol/L (98-107); Creatine Kinase 338 U/L (30-135); Estimated Glomerular Filt Rate > 60 mL/min (>60); Globulin 3.7 g/dL (1.7-4.1); Glucose 118 mg/dL (70-100); HEMOLYSIS 34 (0-50); Potassium 4.3 mmol/L (3.4-5.1); Sodium 128 mmol/L (137-145); Total Protein 7.8 g/dL (6.3-8.2)
[2023-04-07 12:55] LABS: Troponin I < 0.012 ng/mL (0.01-0.034)
--- NOTE | 2023-04-07 15:07 | DI.MRI.S_ITS ---
PROCEDURE: MR HEAD/BRAIN WO CON INDICATIONS: Altered mental status TECHNIQUE: Noncontrast axial T1 spin echo, axial T2 fast spin echo, sagittal and axial FLAIR, coronal T2 fast spin echo, axial gradient echo, axial diffusion and ADC through the brain. COMPARISON: [facility], CT, CT ANGIO HEAD AND NECK, 04/07/2023, 13:10. [facility], MR, MR HEAD/BRAIN WO/W CON, 11/01/2019, 15:35. FINDINGS: Image quality: Diagnostic, with note made of motion artifact. CSF Spaces: Basal cisterns are patent. No extra-axial fluid collections. Ventricles are normal in size and shape. Brain: No intracranial masses or hemorrhage. Bradshaw/white matter interface is normal. Brainstem appears normal. Diffusion-weighted images demonstrate no acute ischemic insult. No chronic ischemic insults. Normal intravascular flow voids are present. Skull and face: Calvarium has normal marrow signal. Orbits appear normal. Sinuses: Sinuses and mastoids are clear. IMPRESSION: No findings of acute or subacute infarction can be seen. No significant brain abnormality is seen. No brain edema. Dictated by: Thom Presley M.D. on 04/07/2023 at 17:38 Approved by: Thom Presley M.D. on 04/07/2023 at 17:40
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
[2023-04-07 15:47] LABS: Ammonia (NH3) 33 umol/L (9-30)
[2023-04-07] MEDS: SODIUM CHLORIDE 0.9% 1,000 ML 1000 ML IV (16:57)
[2023-04-07] MEDS: LIDOCAINE PATCH 1 EACH ADH..PATCH TOP (19:19)
== END 2023-04-07 19:20 | disposition home or self-care (01) ==
PROVIDERS: Emergency Provider Emergency Medicine
DX: G45.4 Transient global amnesia (principal); S20.211A Contusion of right front wall of thorax, initial encounter; R07.9 Chest pain, unspecified; V89.2XXA Person injured in unspecified motor-vehicle accident, traffic, initial encounter
CPT/HCPCS: 36415; 70496; 70498; 70551; 71101; 80053; 81003; 82140; 82550; 84484; 85025; 93005; 99285; Q9967

== ENCOUNTER 2023-04-17 19:49 | Emergency (ER) | payer OTHER, SELFPAY ==
[2023-04-17] VITALS (10 sets, daily range): BP systolic 93–127; BP diastolic 52–66; PULSE 98–110; RESP 19–31; TEMP 37.3; O2SAT 99–100; BMI 19.9
--- NOTE | 2023-04-17 20:13 | DI.RAD.S_ITS ---
PROCEDURE: XR CHEST 1V INDICATIONS: suspected sepsis TECHNIQUE: One view of the chest was acquired. COMPARISON: None. FINDINGS: Surgical changes and devices: Postsurgical changes are noted within the lower cervical spine. Lungs and pleura: Lungs are clear. No pleural effusions or pneumothorax. Mediastinum: Mediastinal contours appear normal. Heart size is normal. Bones and chest wall: No suspicious bony lesions. Overlying soft tissues appear unremarkable. IMPRESSION: 1. No acute cardiopulmonary disease. Dictated by: John Cochran M.D. on 04/17/2023 at 22:59 Approved by: John Cochran M.D. on 04/17/2023 at 22:59
[2023-04-17 20:30] LABS: Add Manual Diff / Slide Review NO; Basophils Absolute Auto 0 /uL (0-100); Basophils Percent Auto 0.8 % (0-2); Eosinophils Absolute Auto 300 /uL (0-450); Eosinophils Percent Auto 4.9 % (2-4); Hematocrit 27.3 % (36-46); Hemoglobin 9.5 g/dL (12.0-16.0); Lymphocytes Absolute Auto 300 /uL (1100-4500); Lymphocytes Percent Auto 6.1 % (25-40); Mean Corpuscular HGB Conc 34.8 % (30-36); Mean Corpuscular Hemoglobin 32.8 PG (26-34); Mean Corpuscular Volume 94.2 fL (80-100); Monocytes Absolute Auto 700 /uL (0-900); Monocytes Percent Auto 11.8 % (3-14); Neutrophils Absolute Auto 4400 /uL (1500-7000); Neutrophils Percent Auto 76.4 % (50-75); Platelet Count 298 X10^3/uL (150-400); Red Cell Distribution Width 14.1 % (11.6-14.8); White Blood Cell Count 5.7 X10^3/uL (4.5-11.0)
[2023-04-17 20:34] LABS: INR 1.4 (0.9-1.3); Prothrombin Time 16.6 SECONDS (10.1-12.7)
--- NOTE | 2023-04-17 20:36 | ED_ITS ---
HPI - Abdominal Pain General Chief Complaint: Abdominal Pain Stated Complaint: Inf from paracentesis Time Seen by Provider: 04/17/23 20:25 Source: patient Mode of arrival: Ambulatory History of Present Illness HPI narrative: Patient 52-year-old female history of ascites she gets frequent paracentesis she reports that she would a paracentesis yesterday at [place]. She reports that they removed 31 lb. Today she is reporting some lower back pain and upper back pain. No nausea vomiting. No abdominal pain no fever chills. She is not taken anything for pain. She denies any numbness tingling or weakness. She is a chronic abdominal incisional hernia as well with a chronic wound she is nonhealing. She reports no changes. She reports that she is supposed to go [facility] procedure and that is in the works but not get scheduled. She needs a tips procedure before she can have a hernia repair. She was here and evaluated on 04/07/2023 with some complaints of amnesia. She was ultimately discharged with probable transient global amnesia Related Data Home Medications Medication Instructions Recorded Confirmed calcium carbonate 600 mg-vitamin 1 cap PO DAILY 03/08/20 01/23/22 D3 12.5 mcg (500 unit) capsule (Calcium 600 with Vitamin D3) multivitamin with minerals 1 tab PO DAILY 03/08/20 01/23/22 (Hair,Skin and Nails tablet) omeprazole 10 mg capsule,delayed 40 mg PO BID 04/25/20 01/23/22 release Hair,Skin and Nails 1 tab DAILY 07/12/20 01/23/22 milk thistle 500 mg capsule 500 mg PO DAILY 07/12/20 01/23/22 lactulose 10 gram/15 mL oral 15 ml PO DAILY 10/10/21 01/23/22 solution nadolol 20 mg tablet 20 mg PO ONCE 10/10/21 01/23/22 furosemide 40 mg tablet 80 mg PO DAILY 01/23/22 01/23/22 sucralfate 1 gram tablet 1 g PO BID 01/23/22 01/23/22 Previous Rx's Medication Instructions Recorded ferrous gluconate 256 mg (28 mg 256 mg PO .every other day #90 tabs 10/10/21 iron) tablet trazodone 50 mg tablet See Rx Instructions .Route 12/18/21 .COMPLEX #30 tabs spironolactone 50 mg tablet 50 mg PO BID #180 tabs 01/16/22 potassium chloride 20 mEq See Rx Instructions .Route 06/18/22 tablet,extended release .COMPLEX #30 tabs lidocaine 5 % topical patch 1 patch topical DAILY PRN pain #30 04/18/23 ea Allergies Allergy/AdvReac Type Severity Reaction Status Date / Time losartan AdvReac Intermediate Feels Verified 01/03/22 10:53 dopey, spaced out, sore throat, runny nose. lisinopril AdvReac Mild cough Verified 01/03/22 10:53 Review of Systems Review of Systems ROS Unobtainable: All systems reviewed & are unremarkable except as noted in HPI and below Patient History Medical History Abnormal TSH Ascites (01/2020) Chicken pox Chronic left hip pain (2014) Cirrhosis Eczema Elevated blood protein Esophageal varices without bleeding (01/2020) ETOH abuse (2009) Hypokalemia Hyponatremia Insomnia Iron deficiency anemia Liver disease Mid back pain, chronic (1999) Monoclonal gammopathy Rib injury Screening for malignant neoplasm of colon Superior mesenteric vein thrombosis Surgical History Anesthesia History of back surgery Social History household members: friend(s) Smoking Status: Current every day smoker Tobacco: How many years used: 35 quit status: not considering quitting second hand exposure: Yes (work) alcohol intake: current substance use type: does not use Smoking Status: Current every day smoker tobacco type: cigarettes alcohol intake frequency: a few times a week Alcohol type: hard liquor Substance Use Type: does not use Exam Initial Vital Signs Initial Vital Signs: Vital Signs Temperature 99.1 F 04/17/23 20:07 Pulse Rate 110 H 04/17/23 20:07 Respiratory Rate 20 04/17/23 20:07 Blood Pressure 127/66 04/17/23 20:07 Pulse Oximetry 100 04/17/23 20:07 Oxygen Delivery Method Room Air 04/17/23 20:07 GENERAL: Alert thin 52-year-old female and in no acute distress. HEENT: Head atraumatic,EOMI, pupils reactive, face symmetric, moist mucous membranes CARDIOVASCULAR: Regular rate and rhythm without murmurs, rubs or gallops. RESPIRATORY: Breath sounds equal bilaterally, no wheezes rales or rhonchi. ABDOMEN: Soft, ascites present, incisional hernia also present reducible with chronic wound no gross drainage no surrounding erythema EXTREMITIES: Normal range of motion, no clubbing or edema. Neurovascularly intact NEUROLOGICAL: Alert and oriented x4. SKIN: Warm, dry, no laceration, no petechiae, no rashes or lesions. Chronic nonhealing wound over abdominal incision no gross drainage, no surrounding erythema Course Orders Ordered: ED Orders 04/17/23 20:00 Ictotest Urine Stat Urinalysis and Microscopic Stat Urine Culture Stat 04/17/23 20:05 Complete Blood Count AUTO DIFF Stat Comprehensive Metabolic Panel Stat Lactate (Lactic Acid) Stat Lipase Stat PTT Partial Thromboplastin Srinivasa Stat Procalcitonin Stat Prothrombin Time INR Stat 04/17/23 20:13 XR chest 1V Stat EKG-12 Lead Stat EKG-12 Lead Stat RT Consult Eval and Treat NOW 04/17/23 21:10 Blood Culture Stat 04/17/23 21:11 CT abdomen pelvis w con Stat Discontinued Medications Sodium Chloride (Normal Saline 0.9%) 1,000 mls @ 1,000 mls/hr IV BOLUS ONE Stop: 04/17/23 21:12 Last Admin: 04/17/23 21:06 Dose: Not Given Documented By: MLNader Ketorolac Tromethamine (Ketorolac 30 Mg/Ml Vial) 15 mg IV NOW ONE Stop: 04/18/23 00:05 Last Admin: 04/18/23 00:07 Dose: 15 mg Documented By: MLNader Ondansetron HCl (Ondansetron 4 Mg/2 Ml Inj) 4 mg IV NOW PRN PRN Reason: Nausea And Vomiting Vital Signs Vital signs: Vital Signs - 8 hr 04/17/23 21:14 04/17/23 21:14 04/17/23 22:00 Pulse Rate 104 H 105 H Respiratory Rate 27 H Blood Pressure 118/66 Pulse Oximetry 100 100 04/17/23 22:01 04/17/23 22:01 04/17/23 22:23 Pulse Rate 102 H Respiratory Rate 19 Blood Pressure 119/65 111/60 Pulse Oximetry 100 04/17/23 22:31 04/17/23 23:00 04/17/23 23:00 Pulse Rate 100 H Respiratory Rate 27 H Blood Pressure 103/58 L 93/52 L Pulse Oximetry 99 04/17/23 23:30 04/17/23 23:30 Pulse Rate 98 H Respiratory Rate 31 H Blood Pressure 114/62 Pulse Oximetry 100 MDM - Abdominal Pain Lab Data 04/17/23 20:05 04/17/23 20:05 Labs: Lab Results 04/17/23 04/17/23 04/17/23 Range/Units 20:00 20:05 20:05 WBC 5.7 (4.5-11.0) X10^3/uL RBC 2.90 L (4.0-5.2) X10^6/uL Hgb 9.5 L (12.0-16.0) g/dL Hct 27.3 L (36-46) % MCV 94.2 (80-100) fL MCH 32.8 (26-34) PG MCHC 34.8 (30-36) % RDW 14.1 (11.6-14.8) % Plt Count 298 (150-400) X10^3/uL Neut % (Auto) 76.4 H (50-75) % Lymph % (Auto) 6.1 L (25-40) % Vilas % (Auto) 11.8 (3-14) % Eos % (Auto) 4.9 H (2-4) % Baso % (Auto) 0.8 (0-2) % Neut # (Auto) 4400 (9792-0763) /uL Lymph # (Auto) 300 L (3341-2045) /uL Vilas # (Auto) 700 (0-900) /uL Eos # (Auto) 300 (0-450) /uL Baso # (Auto) 0 (0-100) /uL PT 16.6 H (10.1-12.7) SECONDS INR 1.4 H (0.9-1.3) APTT 31 (26-36) SECONDS Sodium (137-145) mmol/L Potassium (3.4-5.1) mmol/L Chloride (98-107) mmol/L Carbon Dioxide (22-32) mmol/L BUN (7-17) mg/dL Creatinine (0.52-1.04) mg/dL Estimated GFR (>60) mL/min BUN/Creatinine Ratio (6-22) Glucose (70-100) mg/dL Lactate (0.7-2.1) mmol/L Calcium (8.4-10.2) mg/dL Total Bilirubin (0.2-1.3) mg/dL AST (14-36) IU/L ALT (<35) IU/L Alkaline Phosphatase (38-126) U/L Total Protein (6.3-8.2) g/dL Albumin (3.5-5.0) g/dL Globulin (1.7-4.1) g/dL Albumin/Globulin Ratio (1.0-2.8) Lipase (23-300) U/L Procalcitonin (<0.5) ng/mL Urine Color Yellow Urine Appearance Clear Urine pH 5.0 (4.5-8.0) Ur Specific Golden 1.025 (1.000-1.035) Urine Protein Negative (Negative) Urine Glucose (UA) Negative (Negative) g/dL Urine Ketones Trace H (NEGATIVE) Urine Occult Blood Negative (Negative) Urine Nitrate Negative (Negative) Urine Bilirubin 1+ H (NEGATIVE) Ur Bilirubin Confirm Positive H (Negative) Urine Urobilinogen 1.0 (0.2) E.U./dL Ur Leukocyte Esterase Trace H (NEGATIVE) Urine RBC 0-1/hpf (0-5/HPF) Urine WBC 0-1/hpf (0-5/HPF) Ur Squamous Epith Cells 1-5 /hpf (0-5/HPF) Amorphous Sediment 1+ Urine Bacteria Occasional (0-1) (None) Hyaline Casts 1-5/lpf (None) Ur Culture Indicated? Specimen cultured 04/17/23 04/17/23 04/17/23 Range/Units 20:05 20:05 22:35 WBC (4.5-11.0) X10^3/uL RBC (4.0-5.2) X10^6/uL Hgb (12.0-16.0) g/dL Hct (36-46) % MCV (80-100) fL MCH (26-34) PG MCHC (30-36) % RDW (11.6-14.8) % Plt Count (150-400) X10^3/uL Neut % (Auto) (50-75) % Lymph % (Auto) (25-40) % Vilas % (Auto) (3-14) % Eos % (Auto) (2-4) % Baso % (Auto) (0-2) % Neut # (Auto) (4729-4554) /uL Lymph # (Auto) (9597-1422) /uL Vilas # (Auto) (0-900) /uL Eos # (Auto) (0-450) /uL Baso # (Auto) (0-100) /uL PT (10.1-12.7) SECONDS INR (0.9-1.3) APTT (26-36) SECONDS Sodium 129 L (137-145) mmol/L Potassium 3.4 (3.4-5.1) mmol/L Chloride 94 L (98-107) mmol/L Carbon Dioxide 23 (22-32) mmol/L BUN 19 H (7-17) mg/dL Creatinine 0.66 (0.52-1.04) mg/dL Estimated GFR > 60 (>60) mL/min BUN/Creatinine Ratio 28.8 H (6-22) Glucose 124 H (70-100) mg/dL Lactate 2.2 H 2.0 (0.7-2.1) mmol/L Calcium 9.3 (8.4-10.2) mg/dL Total Bilirubin 2.2 H (0.2-1.3) mg/dL AST 48 H (14-36) IU/L ALT 28 (<35) IU/L Alkaline Phosphatase 108 (38-126) U/L Total Protein 7.8 (6.3-8.2) g/dL Albumin 4.2 (3.5-5.0) g/dL Globulin 3.6 (1.7-4.1) g/dL Albumin/Globulin Ratio 1.2 (1.0-2.8) Lipase 278 (23-300) U/L Procalcitonin 0.11 (<0.5) ng/mL Urine Color Urine Appearance Urine pH (4.5-8.0) Ur Specific Golden (1.000-1.035) Urine Protein (Negative) Urine Glucose (UA) (Negative) g/dL Urine Ketones (NEGATIVE) Urine Occult Blood (Negative) Urine Nitrate (Negative) Urine Bilirubin (NEGATIVE) Ur Bilirubin Confirm (Negative) Urine Urobilinogen (0.2) E.U./dL Ur Leukocyte Esterase (NEGATIVE) Urine RBC (0-5/HPF) Urine WBC (0-5/HPF) Ur Squamous Epith Cells (0-5/HPF) Amorphous Sediment Urine Bacteria (None) Hyaline Casts (None) Ur Culture Indicated? Imaging Data CT scan - abdomen/pelvis: Radiologist's Impression: PROCEDURE:? CT ABDOMEN PELVIS W CON ? INDICATIONS:? back pain ab pain, ascites ? TECHNIQUE:? After the administration of oral and IV contrast, axial sections were acquired f rom the lung bases to the pubic symphysis.? Coronal and sagittal reformats were performed.? For radiation dose reduction, the following was used:? automated exposure control, adjustment of mA and/or kV according to patient size. ? COMPARISON:? [facility], CT, CT ABDOMEN HEPATIC/ADRENAL PROTOCOL, 04/09/2023, 8:29.? [facility], CT, CT ABDOMEN PELVIS W CON, 02/08/2020, 13:09. ? FINDINGS:? Image quality:? CT chest abdomen pelvis 12/15/2022, 06/13/2022. ? Lung bases:? Unremarkable.? ? Heart:? Heart is normal in size. ? ? ABDOMEN: Liver:? There is diffuse nodularity and heterogeneous attenuation of the liver consistent with cirrhosis.? No discrete suspicious mass identified. Gallbladder:? Gallbladder is nondistended with nonspecific wall thickening. Biliary ducts:? No biliary ductal dilatation.? ? Pancreas:? Unremarkable.? ? Spleen:? The spleen is enlarged, measuring up to 15.4 cm. Adrenal Glands:? No adrenal nodules.? ? Kidneys and Ureters:? No hydronephrosis.? ? ? Stomach and Bowel:? There is mild nonspecific wall thickening involving multiple small bowel loops predominantly within the left abdomen.? Mild wall thickening also demonstrated within the colon.? The findings may be reactive secondary to ascites.? The appendix is normal.? Peritoneum:? There is a moderate amount of intraperitoneal free fluid in the abdomen and pelvis.? No free air.? ? Ventral Wall: ? There is a small ventral abdominal hernia containing short herniated segment of small bowel.? No associated bowel obstruction or definite evidence of strangulation.? There is ascitic fluid within the hernia. Abdominal Nodes:? No retroperitoneal or mesenteric adenopathy by size criteria.? Vessels:? Aorta and inferior vena cava are normal in size.? There is a recanalized paraumbilical vein.? There are small gastroesophageal and splenic varices. ? PELVIS: Pelvic Organs:? Unremarkable.? ? Bladder:? Unremarkable.? ? Pelvic Nodes: No enlarged lymph nodes.? Miscellaneous: No inguinal hernias are seen. ? ? ? Bones:? Visualized osseous structures demonstrate no suspicious focal lesions. ? IMPRESSION:? ? 1. Nodular cirrhotic liver redemonstrated with findings consistent with portal hypertension including splenomegaly, ascites, and varices. ? 2. No definite suspicious hepatic mass identified.? ? 3. Small ventral abdominal hernia containing a few short segments of small bowel.? No evidence of associated bowel obstruction or strangulation.? ? 4. Mild nonspecific wall thickening of multiple small bowel loops.? The findings may be reactive secondary to ascites or represent a mild enteritis.? ? Dictated by: John Cochran M.D. on 04/17/2023 at 23:08 ? ? [facility] Narrative Medical decision making narrative: Patient is a 52-year-old female history of chronic ascites regularly scheduled paracentesis presenting today with lumbar back pain and thoracic back pain after paracentesis yesterday. He actually did receive quite a lot of relief with Toradol. Blood work overall appears stable. She is chronically anemic without significant change, chronically hyponatremic sodium 129 which is improved from previous kidney function is stable normal. Urinalysis is also negative. At this time I suspect back pain is musculoskeletal. Feeling better after Toradol she seems to be moving a lot around trying to find a comfortable position. CT scan does not show any complication or abnormality from paracentesis. No evidence of nephrolithiasis, or other etiology. She is no changes in bowel or bladder habits no radiation down her legs to suggest sciatica. Recommend supportive care at this time. Discharge Plan Departure Patient Disposition: Home Clinical Impression: Back pain Instructions: Low Back Pain Activity Restrictions/Additional Instructions: *You have been diagnosed with back pain *What to do: At this time blood work and CT scan are reassuring. Unclear cause of your back pain. Recommend light activity no strenuous activity. Heating pad. *Continue to take medications as directed Ibuprofen 600 mg every 8 hours if needed for [id number] pain Lidocaine patch at site of pain for 12 hours then remove--> [facility] *Follow up with your primary care provider in 2-3 days or call [phone] *Return to ER if you should have increasing pain fever or any new, worsening or concerning symptoms Prescriptions: New lidocaine 5 % adhesive patch,medicated 1 patch topical DAILY PRN (Reason: pain) Qty: 30 0RF Rx Instructions: leave on most painful area for up to 12 hrs No Action trazodone 50 mg tablet See Rx Instructions .ROUTE .COMPLEX Qty: 30 0RF Dose Instruction: TAKE 1 TABLET BY MOUTH AT BEDTIME NEEDED FOR INSOMNIA Rx Instructions: TAKE 1 TABLET BY MOUTH AT BEDTIME NEEDED FOR INSOMNIA spironolactone 50 mg tablet 50 mg PO BID Qty: 180 1RF Rx Instructions: please call her when ready potassium chloride 20 mEq tablet extended release See Rx Instructions .ROUTE .COMPLEX Qty: 30 0RF Dose Instruction: TAKE 1 TABLET BY MOUTH DAILY Rx Instructions: TAKE 1 TABLET BY MOUTH DAILY calcium carbonate-vitamin D3 [Calcium 600 with Vitamin D3] 600 mg(1,500mg) - 500 unit capsule 1 cap PO DAILY multivitamin with minerals [Hair,Skin and Nails] Tablet 1 tab PO DAILY lactulose 10 gram/15 mL solution 15 ml PO DAILY nadolol 20 mg tablet 20 mg PO ONCE ferrous gluconate 256 mg (28 mg iron) tablet 256 mg PO .every other day Qty: 90 3RF omeprazole 10 mg Capsule,Delayed Release(Dr/Ec) 40 mg PO BID milk thistle 500 mg Capsule 500 mg PO DAILY Hair,Skin and Nails 1 tab DAILY sucralfate 1 gram Tablet 1 g PO BID furosemide 40 mg tablet 80 mg PO DAILY Referrals: Miscellaneous,Doctor, MD [Primary Care Provider] - Stand Alone Forms: Patient Portal/API
[2023-04-17 20:37] LABS: PTT Partial Thromboplastin Tim 31 SECONDS (26-36)
[2023-04-17 20:39] LABS: Lactate (Lactic Acid) 2.2 mmol/L (0.7-2.1)
[2023-04-17 20:40] LABS: Alanine Aminotransferase 28 IU/L (<35); Albumin 4.2 g/dL (3.5-5.0); Albumin Globulin Ratio 1.2 (1.0-2.8); Alkaline Phosphatase 108 U/L (38-126); Aspartate Aminotransferase 48 IU/L (14-36); BUN Creatinine Ratio 28.8 (6-22); Bilirubin Total 2.2 mg/dL (0.2-1.3); Blood Urea Nitrogen 19 mg/dL (7-17); Calcium 9.3 mg/dL (8.4-10.2); Carbon Dioxide 23 mmol/L (22-32); Chloride 94 mmol/L (98-107); Estimated Glomerular Filt Rate > 60 mL/min (>60); Globulin 3.6 g/dL (1.7-4.1); Glucose 124 mg/dL (70-100); HEMOLYSIS < 15 (0-50); Lipase 278 U/L (23-300); Potassium 3.4 mmol/L (3.4-5.1); Sodium 129 mmol/L (137-145); Total Protein 7.8 g/dL (6.3-8.2)
[2023-04-17 20:56] LABS: Procalcitonin 0.11 ng/mL (<0.5)
--- NOTE | 2023-04-17 21:11 | DI.CT.S_ITS ---
PROCEDURE: CT ABDOMEN PELVIS W CON INDICATIONS: back pain ab pain, ascites TECHNIQUE: After the administration of oral and IV contrast, axial sections were acquired from the lung bases to the pubic symphysis. Coronal and sagittal reformats were performed. For radiation dose reduction, the following was used: automated exposure control, adjustment of mA and/or kV according to patient size. COMPARISON: [facility], CT, CT ABDOMEN HEPATIC/ADRENAL PROTOCOL, 04/09/2023, 8:29. [facility], CT, CT ABDOMEN PELVIS W CON, 02/08/2020, 13:09. FINDINGS: Image quality: CT chest abdomen pelvis 12/15/2022, 06/13/2022. Lung bases: Unremarkable. Heart: Heart is normal in size. ABDOMEN: Liver: There is diffuse nodularity and heterogeneous attenuation of the liver consistent with cirrhosis. No discrete suspicious mass identified. Gallbladder: Gallbladder is nondistended with nonspecific wall thickening. Biliary ducts: No biliary ductal dilatation. Pancreas: Unremarkable. Spleen: The spleen is enlarged, measuring up to 15.4 cm. Adrenal Glands: No adrenal nodules. Kidneys and Ureters: No hydronephrosis. Stomach and Bowel: There is mild nonspecific wall thickening involving multiple small bowel loops predominantly within the left abdomen. Mild wall thickening also demonstrated within the colon. The findings may be reactive secondary to ascites. The appendix is normal. Peritoneum: There is a moderate amount of intraperitoneal free fluid in the abdomen and pelvis. No free air. Ventral Wall: There is a small ventral abdominal hernia containing short herniated segment of small bowel. No associated bowel obstruction or definite evidence of strangulation. There is ascitic fluid within the hernia. Abdominal Nodes: No retroperitoneal or mesenteric adenopathy by size criteria. Vessels: Aorta and inferior vena cava are normal in size. There is a recanalized paraumbilical vein. There are small gastroesophageal and splenic varices. PELVIS: Pelvic Organs: Unremarkable. Bladder: Unremarkable. Pelvic Nodes: No enlarged lymph nodes. Miscellaneous: No inguinal hernias are seen. Bones: Visualized osseous structures demonstrate no suspicious focal lesions. IMPRESSION: 1. Nodular cirrhotic liver redemonstrated with findings consistent with portal hypertension including splenomegaly, ascites, and varices. 2. No definite suspicious hepatic mass identified. 3. Small ventral abdominal hernia containing a few short segments of small bowel. No evidence of associated bowel obstruction or strangulation. 4. Mild nonspecific wall thickening of multiple small bowel loops. The findings may be reactive secondary to ascites or represent a mild enteritis. Dictated by: John Cochran M.D. on 04/17/2023 at 23:08 Approved by: John Cochran M.D. on 04/17/2023 at 23:31
[2023-04-17 21:43] LABS: Appearance Urine UA CLEAR; Bilirubin Urine UA 1+ (NEGATIVE); Color Urine UA YELLOW; Glucose Urine UA NEGATIVE (Negative); Ketones Urine UA TRACE (NEGATIVE); Leukocyte Esterase Urine UA TRACE (NEGATIVE); Nitrite Urine UA NEGATIVE (Negative); Occult Blood Urine UA NEGATIVE (Negative); Protein Urine UA NEGATIVE (Negative); Specific Gravity Urine UA 1.025 (1.000-1.035)
[2023-04-17 21:51] LABS: Amorphous Sediment Urine 1+; Bacteria Urine Occasional (0-1); Hyaline Casts Urine 1-5/LPF; RBC Urine 0-1/HPF (0-5/HPF); Squamous Epithelial Cell Urine 1-5 /HPF (0-5/HPF); WBC Urine 0-1/HPF (0-5/HPF)
[2023-04-17 21:52] LABS: Culture Indicated Urine Specimen Cultured; Ictotest Urine Positive (Negative)
[2023-04-17 22:21] LABS: Reflexed Lactate in 2 Hours Y
[2023-04-18] MEDS: KETOROLAC 30 MG/ML VIAL 15 MG IV (00:07)
== END 2023-04-18 00:18 | disposition home or self-care (01) ==
PROVIDERS: Emergency Provider Emergency Medicine
DX: M54.50 Low back pain, unspecified (principal); R18.8 Other ascites
CPT/HCPCS: 36415; 71045; 74177; 80053; 81001; 83605; 83690; 84145; 85025; 85610; 85730; 87040; 87086; 93005; 96374; 99284; J1885; Q9967

== ENCOUNTER 2023-06-06 12:13 | Emergency (ER) | payer SELFPAY ==
[2023-06-06] VITALS (34 sets, daily range): BP systolic 92–133; BP diastolic 51–85; PULSE 87–108; RESP 18–40; TEMP 36.1–36.7; O2SAT 98–100; BMI 19.3
--- NOTE | 2023-06-06 12:15 | ED_ITS ---
HPI - General Adult General Chief complaint: Recheck/Abnormal Lab/Rx Stated complaint: per pt needs transfusion Time Seen by Provider: 06/06/23 12:15 History of Present Illness HPI narrative: 53-year-old female smoker with extensive history of alcohol abuse and resultant liver failure with history of iron-deficiency anemia, esophageal varices, chronic ascites and weekly paracentesis ascites presents stating that she feels fatigued and needs blood. She sees GI at Located [facility] and is apparently in the process of being evaluated for a possible TIPS. She states she has a standing order for a weekly paracentesis at [facility] and yesterday had her routine visit, she states they took about 12 L off followed by administration of albumin. She had labs drawn and was told she was anemic and needed a transfusion but elected to leave stating that she had other things to do in the been a long day and she wanted to go home. She has a chronic mid abdominal hernia that has had a small area of skin breakdown overlying that she states was bleeding last night but denies any other episodes of bleeding. She is had no vomiting, no dark stools, no urinary complaints. Related Data Home Medications Medication Instructions Recorded Confirmed calcium carbonate 600 mg-vitamin 1 cap PO DAILY 03/08/20 06/06/23 D3 12.5 mcg (500 unit) capsule (Calcium 600 with Vitamin D3) multivitamin with minerals 1 tab PO DAILY 03/08/20 06/06/23 (Hair,Skin and Nails tablet) lactulose 10 gram/15 mL oral 30 ml PO DAILY 10/10/21 06/06/23 solution furosemide 40 mg tablet 80 mg PO DAILY 01/23/22 06/06/23 ferrous gluconate 256 mg (28 mg 256 mg PO DAILY 06/06/23 06/06/23 iron) tablet omeprazole 40 mg capsule,delayed 40 mg PO DAILY 06/06/23 06/06/23 release potassium chloride 20 mEq 20 meq PO BID 06/06/23 06/06/23 tablet,extended release spironolactone 100 mg tablet 100 mg PO BID 06/06/23 06/06/23 Allergies Allergy/AdvReac Type Severity Reaction Status Date / Time losartan AdvReac Intermediate Feels Verified 06/06/23 12:18 dopey, spaced out, sore throat, runny nose. lisinopril AdvReac Mild cough Verified 06/06/23 12:18 Review of Systems Review of Systems Narrative: GENERAL: See HPI HEENT: Denies sinus pain, ear pain, sore throat, difficulty swallowing, dizziness. RESPIRATORY: Denies dyspnea, cough, wheezing, hemoptysis, sputum. CARDIOVASCULAR: Denies chest pain, palpitations, orthopnea, edema, GASTROINTESTINAL: See HPI : Denies dysuria, frequency, incontinence, hematuria, urinary retention. MUSCULOSKELETAL: denies weakness, joint pain, or bony pain SKIN: Denies rash, skin lesions, or other NEUROLOGIC: Denies weakness, headache, numbness, change in speech, confusion, seizures, incoordination. PSYCHIATRIC: No concerning psychosocial issues. 12 point review of systems is negative except for those stated above Patient History Medical History Abnormal TSH Ascites (01/2020) Chicken pox Chronic left hip pain (2014) Cirrhosis Eczema Elevated blood protein Esophageal varices without bleeding (01/2020) ETOH abuse (2009) Hypokalemia Hyponatremia Insomnia Iron deficiency anemia Liver disease Mid back pain, chronic (1999) Monoclonal gammopathy Rib injury Screening for malignant neoplasm of colon Superior mesenteric vein thrombosis Surgical History Anesthesia History of back surgery Social History household members: friend(s) Smoking Status: Current every day smoker Tobacco: How many years used: 35 quit status: not considering quitting second hand exposure: Yes (work) alcohol intake: current substance use type: does not use Smoking Status: Current every day smoker tobacco type: cigarettes alcohol intake frequency: a few times a week Alcohol type: hard liquor Substance Use Type: does not use Exam Narrative Exam Narrative: GENERAL: [53] year old patient appears stated age. Thin, evidence of chronic illness HEAD: Atraumatic. Normocephalic. EYES: Pale conjunctiva Pupils equal round and reactive. Extraocular motions intact. No scleral icterus. No injection or drainage. ENT: Nose without bleeding, purulent drainage. Throat without erythema, tonsillar hypertrophy or exudate. Airway patent. NECK: Trachea midline. Non tender CARDIOVASCULAR: Regular rate and rhythm without murmurs, gallops, or rubs. RESPIRATORY: Clear to auscultation. Breath sounds equal bilaterally. No wheezes, rales, or rhonchi. GASTROINTESTINAL: Abdomen soft, large ventral hernia with small area of overlying skin breakdown, no bleeding, no drainage, no surrounding erythema, induration or fluctuance EXTREMITIES: No edema or joint tenderness. BACK: Nontender without deformity or crepitance. No flank tenderness. NEURO: AOx3. SKIN: No rash or erythema of visible areas Initial Vital Signs Initial Vital Signs: Vital Signs Temperature 97.9 F 06/06/23 12:18 Pulse Rate 96 H 06/06/23 12:18 Respiratory Rate 24 06/06/23 12:18 Blood Pressure 98/51 L 06/06/23 12:18 Pulse Oximetry 100 06/06/23 12:18 Oxygen Delivery Method Room Air 06/06/23 12:18 Course Orders Ordered: ED Orders 06/06/23 12:37 Complete Blood Count AUTO DIFF Stat Comprehensive Metabolic Panel Stat Lipase Stat Magnesium Stat Packed Cells Stat Prothrombin Time INR Stat Type and Screen Stat 06/06/23 18:24 CT chest abd pel w con Stat Vital Signs Vital signs: Vital Signs - 8 hr 06/06/23 12:18 06/06/23 12:25 06/06/23 12:26 Temperature 97.9 F Pulse Rate 96 H 96 H 96 H Respiratory Rate 24 Blood Pressure 98/51 L Pulse Oximetry 100 100 100 Oxygen Delivery Method Room Air Room Air 06/06/23 12:26 06/06/23 12:30 06/06/23 12:37 Temperature Pulse Rate 95 H Respiratory Rate Blood Pressure 116/62 102/56 L Pulse Oximetry 100 Oxygen Delivery Method 06/06/23 12:37 06/06/23 13:00 06/06/23 13:01 Temperature Pulse Rate 92 H 92 H 93 H Respiratory Rate Blood Pressure Pulse Oximetry 100 100 100 Oxygen Delivery Method Room Air 06/06/23 13:01 06/06/23 14:30 06/06/23 14:30 Temperature 98.1 F 98.1 F Pulse Rate 90 90 Respiratory Rate 22 22 Blood Pressure 106/60 101/63 101/63 Pulse Oximetry Oxygen Delivery Method 06/06/23 14:45 06/06/23 13:30 06/06/23 13:30 Temperature 97.8 F Pulse Rate 89 100 H Respiratory Rate 28 H 18 Blood Pressure 98/56 L 96/53 L Pulse Oximetry 100 Oxygen Delivery Method Room Air 06/06/23 14:00 06/06/23 14:00 06/06/23 14:30 Temperature Pulse Rate 87 Respiratory Rate 22 Blood Pressure 97/53 L 101/63 Pulse Oximetry 100 Oxygen Delivery Method 06/06/23 14:30 06/06/23 14:45 06/06/23 14:45 Temperature Pulse Rate 90 91 H Respiratory Rate 34 H Blood Pressure 106/62 Pulse Oximetry 100 100 Oxygen Delivery Method Room Air 06/06/23 14:47 06/06/23 14:47 06/06/23 15:00 Temperature Pulse Rate 90 Respiratory Rate 29 H Blood Pressure 98/56 L 92/56 L Pulse Oximetry 100 Oxygen Delivery Method 06/06/23 15:00 06/06/23 15:15 06/06/23 15:15 Temperature Pulse Rate 95 H 96 H Respiratory Rate 34 H 33 H Blood Pressure 111/85 Pulse Oximetry 100 100 Oxygen Delivery Method Room Air 06/06/23 15:30 06/06/23 15:30 06/06/23 15:45 Temperature Pulse Rate 93 H 93 H Respiratory Rate 38 H Blood Pressure 105/61 Pulse Oximetry 100 100 Oxygen Delivery Method Room Air 06/06/23 15:45 06/06/23 16:43 06/06/23 16:00 Temperature 98.0 F Pulse Rate 98 H 97 H Respiratory Rate 19 40 H Blood Pressure 101/55 L 104/57 L Pulse Oximetry 100 Oxygen Delivery Method 06/06/23 16:01 06/06/23 16:01 06/06/23 16:15 Temperature Pulse Rate 95 H Respiratory Rate 28 H Blood Pressure 100/57 L 104/57 L Pulse Oximetry 100 Oxygen Delivery Method Room Air 06/06/23 16:15 06/06/23 16:30 06/06/23 17:00 Temperature Pulse Rate 98 H 102 H Respiratory Rate 25 H Blood Pressure 116/60 Pulse Oximetry 100 100 Oxygen Delivery Method Room Air 06/06/23 17:00 06/06/23 17:20 06/06/23 17:20 Temperature 97.7 F Pulse Rate 98 H 101 H Respiratory Rate 26 H Blood Pressure 109/64 109/64 Pulse Oximetry 100 Oxygen Delivery Method Room Air 06/06/23 17:20 06/06/23 17:41 06/06/23 17:30 Temperature 97.0 F L Pulse Rate 108 H 103 H 103 H Respiratory Rate 30 H 24 30 H Blood Pressure 113/63 Pulse Oximetry 100 100 Oxygen Delivery Method Room Air 06/06/23 17:40 06/06/23 17:40 06/06/23 17:45 Temperature Pulse Rate 106 H Respiratory Rate 31 H Blood Pressure 105/56 L 113/63 Pulse Oximetry 100 Oxygen Delivery Method 06/06/23 17:45 06/06/23 18:00 06/06/23 18:00 Temperature Pulse Rate 104 H 103 H Respiratory Rate 23 28 H Blood Pressure 106/63 Pulse Oximetry 100 100 Oxygen Delivery Method 06/06/23 18:20 06/06/23 18:20 06/06/23 18:30 Temperature Pulse Rate 101 H 106 H Respiratory Rate 34 H 28 H Blood Pressure 114/64 Pulse Oximetry 98 99 Oxygen Delivery Method 06/06/23 19:00 06/06/23 19:30 06/06/23 19:30 Temperature Pulse Rate 102 H 98 H Respiratory Rate 25 H Blood Pressure 116/70 Pulse Oximetry 99 100 Oxygen Delivery Method Medical Decision Making Lab Data 06/06/23 12:37 06/06/23 12:37 Labs: Lab Results 06/06/23 06/06/23 06/06/23 Range/Units 12:37 12:37 12:37 WBC 6.2 (4.5-11.0) X10^3/uL RBC 2.18 L (4.0-5.2) X10^6/uL Hgb 6.4 L* (12.0-16.0) g/dL Hct 18.9 L* (36-46) % MCV 86.7 (80-100) fL MCH 29.1 (26-34) PG MCHC 33.6 (30-36) % RDW 15.6 H (11.6-14.8) % Plt Count 241 (150-400) X10^3/uL Neut % (Auto) 80.9 H (50-75) % Lymph % (Auto) 5.9 L (25-40) % Murray % (Auto) 11.3 (3-14) % Eos % (Auto) 1.2 L (2-4) % Baso % (Auto) 0.7 (0-2) % Neut # (Auto) 5000 (6769-4312) /uL Lymph # (Auto) 400 L (0647-0599) /uL Murray # (Auto) 700 (0-900) /uL Eos # (Auto) 100 (0-450) /uL Baso # (Auto) 0 (0-100) /uL PT 16.5 H (10.1-12.7) SECONDS INR 1.4 H (0.9-1.3) Sodium 124 L (137-145) mmol/L Potassium 5.6 H (3.4-5.1) mmol/L Chloride 96 L (98-107) mmol/L Carbon Dioxide 18 L (22-32) mmol/L BUN 44 H (7-17) mg/dL Creatinine 1.41 H (0.52-1.04) mg/dL Estimated GFR 44 L (>60) mL/min BUN/Creatinine Ratio 31.2 H (6-22) Glucose 123 H (70-100) mg/dL Calcium 9.2 (8.4-10.2) mg/dL Magnesium 2.4 H (1.6-2.3) mg/dL Total Bilirubin 1.2 (0.2-1.3) mg/dL AST 51 H (14-36) IU/L ALT 29 (<35) IU/L Alkaline Phosphatase 114 (38-126) U/L Total Protein 6.6 (6.3-8.2) g/dL Albumin 3.7 (3.5-5.0) g/dL Globulin 2.9 (1.7-4.1) g/dL Albumin/Globulin Ratio 1.3 (1.0-2.8) Lipase 428 H (23-300) U/L Blood Type Antibody Screen Crossmatch 06/06/23 Range/Units 12:37 WBC (4.5-11.0) X10^3/uL RBC (4.0-5.2) X10^6/uL Hgb (12.0-16.0) g/dL Hct (36-46) % MCV (80-100) fL MCH (26-34) PG MCHC (30-36) % RDW (11.6-14.8) % Plt Count (150-400) X10^3/uL Neut % (Auto) (50-75) % Lymph % (Auto) (25-40) % Murray % (Auto) (3-14) % Eos % (Auto) (2-4) % Baso % (Auto) (0-2) % Neut # (Auto) (2299-9513) /uL Lymph # (Auto) (1342-2515) /uL Murray # (Auto) (0-900) /uL Eos # (Auto) (0-450) /uL Baso # (Auto) (0-100) /uL PT (10.1-12.7) SECONDS INR (0.9-1.3) Sodium (137-145) mmol/L Potassium (3.4-5.1) mmol/L Chloride (98-107) mmol/L Carbon Dioxide (22-32) mmol/L BUN (7-17) mg/dL Creatinine (0.52-1.04) mg/dL Estimated GFR (>60) mL/min BUN/Creatinine Ratio (6-22) Glucose (70-100) mg/dL Calcium (8.4-10.2) mg/dL Magnesium (1.6-2.3) mg/dL Total Bilirubin (0.2-1.3) mg/dL AST (14-36) IU/L ALT (<35) IU/L Alkaline Phosphatase (38-126) U/L Total Protein (6.3-8.2) g/dL Albumin (3.5-5.0) g/dL Globulin (1.7-4.1) g/dL Albumin/Globulin Ratio (1.0-2.8) Lipase (23-300) U/L Blood Type A Negative Antibody Screen Negative Crossmatch See Detail MDM Narrative Medical decision making narrative: CC: 53-year-old female with generalized weakness and reported anemia Complicating co-morbidities: Chronic liver disease, ascites, cirrhosis, varices Data collected from: Patient Medical records reviewed: Prior notes reviewed in our EMR Differential considered, but not limited to: GI bleed versus chronic anemia versus other Exam documented above, pertinent findings include: Heart rate regular, lungs clear, abdomen is soft, chronic ventral hernia, no evidence of bleeding Lab Test results independently reviewed as above. Pertinent findings: No leukocytosis or left shift, hemoglobin 6.4, hematocrit 18.9, INR 1.4, sodium 124, potassium 5.6, carbon dioxide 18, creatinine 1.4 (baseline 0.66) Independently reviewed EKG as above Imaging studies independently reviewed: CT of chest abdomen and pelvis demonstrates no evidence of internal bleeding, questionable small-bowel obstruction the patient has no pain, no vomiting Re-evaluations: Patient feeling much better after transfusion Discussion: Patient with chronic disease and weakness, likely related to at least in some part anemia feels much better after transfusion. I spent extensive time discussing with the patient concern about her hyponatremia, acute kidney injury, cause of bleeding etc. and strongly recommended hospitalization and likely transfer to rule out and likely treat potentially life-threatening diagnoses. She has the capacity to make her own decisions and we had excellent bedside discussion and she was quite polite and understanding but would prefer to go home and follow-up as an outpatient. She clearly demonstrates capacity and understands the risks of this decision could include but is not limited to severe infection, life-threatening bleeding, seizure, stroke, conditions that could leave her permanently disabled or even lead to . Understands that she may change her mind at any time and we will welcome her with open arms to complete workup and treatment Disposition: see below, along with detailed discharge instructions that have been reviewed with patient as well as indications for ED re-evaluation and additional outpatient follow up Discharge Plan Departure Patient Disposition: Left Against Medical Advice Clinical Impression: Chronic liver failure, Acute kidney injury, Signs and symptoms of anemia Activity Restrictions/Additional Instructions: *You have been diagnosed with [symptomatic anemia, acute kidney injury, hyponat remia. I am glad you are feeling better after the transfusion and I am happy to let you know there is no evidence of internal bleeding on the CT scan. As we discussed my recommendation and preference would be to keep you in the hospital but I certainly respect your decision to leave. Please understand that at any point if you change your mind you may return and you will be received with open arms *What to do: *Please continue to take your regular medications as directed. *Please follow up with your primary care provider in 2-3 days, call for an appointment. Let them know you were seen in the Emergency Department and that we ask that you be seen in follow up. We will electronically transmit a record of today's note if your PCP is in our system *If you do not have a primary care provider please contact the [facility] Resource line at [phone]. They will ask some questions about your medical history and help get you set up with a doctor in the community. *Return to Emergency Department if you should have any new, worsening or concerning symptoms, such as [fever greater than 101 F, shaking chills, worsening pain, persistent vomiting or other bothersome symptoms] Prescriptions: No Action calcium carbonate-vitamin D3 [Calcium 600 with Vitamin D3] 600 mg(1,500mg) - 500 unit capsule 1 cap PO DAILY multivitamin with minerals [Hair,Skin and Nails] Tablet 1 tab PO DAILY lactulose 10 gram/15 mL solution 30 ml PO DAILY spironolactone 100 mg tablet 100 mg PO BID omeprazole 40 mg capsule,delayed release(DR/EC) 40 mg PO DAILY potassium chloride 20 mEq tablet extended release 20 meq PO BID ferrous gluconate 256 mg (28 mg iron) tablet 256 mg PO DAILY furosemide 40 mg tablet 80 mg PO DAILY Stand Alone Forms: Against Medical Advice
[2023-06-06 12:55] LABS: Add Manual Diff / Slide Review NO; Basophils Absolute Auto 0 /uL (0-100); Basophils Percent Auto 0.7 % (0-2); Eosinophils Absolute Auto 100 /uL (0-450); Eosinophils Percent Auto 1.2 % (2-4); Lymphocytes Absolute Auto 400 /uL (1100-4500); Lymphocytes Percent Auto 5.9 % (25-40); Mean Corpuscular HGB Conc 33.6 % (30-36); Mean Corpuscular Hemoglobin 29.1 PG (26-34); Mean Corpuscular Volume 86.7 fL (80-100); Monocytes Absolute Auto 700 /uL (0-900); Monocytes Percent Auto 11.3 % (3-14); Neutrophils Absolute Auto 5000 /uL (1500-7000); Neutrophils Percent Auto 80.9 % (50-75); Platelet Count 241 X10^3/uL (150-400); Red Blood Cell Count 2.18 X10^6/uL (4.0-5.2); Red Cell Distribution Width 15.6 % (11.6-14.8); White Blood Cell Count 6.2 X10^3/uL (4.5-11.0)
[2023-06-06 12:56] LABS: Hematocrit 18.9 % (36-46); Hemoglobin 6.4 g/dL (12.0-16.0)
[2023-06-06 13:00] LABS: INR 1.4 (0.9-1.3); Prothrombin Time 16.5 SECONDS (10.1-12.7)
[2023-06-06 13:05] LABS: Alanine Aminotransferase 29 IU/L (<35); Albumin 3.7 g/dL (3.5-5.0); Albumin Globulin Ratio 1.3 (1.0-2.8); Alkaline Phosphatase 114 U/L (38-126); Aspartate Aminotransferase 51 IU/L (14-36); BUN Creatinine Ratio 31.2 (6-22); Bilirubin Total 1.2 mg/dL (0.2-1.3); Blood Urea Nitrogen 44 mg/dL (7-17); Calcium 9.2 mg/dL (8.4-10.2); Carbon Dioxide 18 mmol/L (22-32); Chloride 96 mmol/L (98-107); Estimated Glomerular Filt Rate 44 mL/min (>60); Globulin 2.9 g/dL (1.7-4.1); Glucose 123 mg/dL (70-100); HEMOLYSIS < 15 (0-50); Lipase 428 U/L (23-300); Magnesium 2.4 mg/dL (1.6-2.3); Sodium 124 mmol/L (137-145); Total Protein 6.6 g/dL (6.3-8.2)
[2023-06-06 13:16] LABS: Potassium 5.6 mmol/L (3.4-5.1)
--- NOTE | 2023-06-06 13:50 | PC.NURSE ---
Pt states she has been bleeding a lot from her abdominal wound the past few days, a gentle border bandage was applied. Patient states worsening fatigue and weakness, having occasional bouts of dizziness described as light headed. She denies SOB and states when she had her paracentesis yesterday she did not feel a sense of relief after having fluid drained.
--- NOTE | 2023-06-06 16:08 | PC.NURSE ---
[facility] downtime, information charted on patient and is in patient chart. Now backcharting.
--- NOTE | 2023-06-06 18:18 | PC.NURSE ---
Pt would like to not be transferred and would prefer to go home. She wants a scan for internal bleeding and then home. Pt does not want to go to . Dr. Acuña aware and will speak with patient.
--- NOTE | 2023-06-06 18:24 | DI.CT.S_ITS ---
PROCEDURE: CT CHEST ABD PEL W CON INDICATIONS: Weakness, short of breath, symptomatic anemia. TECHNIQUE: After the administration of oral and intravenous contrast, axial sections acquired from the supraclavicular neck to the pubic symphysis. Coronal and sagittal reformats were performed. For radiation dose reduction, the following was used: automated exposure control, adjustment of mA and/or kV according to patient size. COMPARISON: Merged With [facility], CT, CT ABDOMEN PELVIS W CON, 04/17/2023, 21:51. Located Within [facility], CT, CT ABDOMEN HEPATIC/ADRENAL PROTOCOL, 04/09/2023, 8:29. FINDINGS: Image quality: This examination is limited by involuntary motion artifact. CHEST: Lower Neck: No enlarged lymph nodes. Thyroid: Within normal limits. Axillae: No enlarged lymph nodes. Chest Wall: Unremarkable. Lungs and Airways: Mild areas of ground-glass opacity can be seen within the lungs. There is a mild degree of consolidation seen within the subpleural left lung. Pleura: No pneumothorax or pleural effusions. Heart: Heart size is normal. No pericardial effusion. Moderate coronary artery calcification is seen. Thoracic Vessels: The aorta and pulmonary arteries demonstrate normal size. Mediastinum and Aminah: No enlarged lymph nodes. Esophagus: No wall thickening. There is a small hiatal hernia. ABDOMEN: Liver: There is a cirrhotic liver. There is a recanalized umbilical vein. There is nonocclusive thrombus seen within the main portal vein, as on series 3, image 56. Gallbladder: Not well seen. Biliary ducts: Unremarkable. Pancreas: Unremarkable. Spleen: Unremarkable. Adrenal Glands: Unremarkable. Kidneys and Ureters: Unremarkable. Stomach and Bowel: Dilated loops of small bowel are seen proximally. There is a relative transition seen within the anterior right abdomen, as on series 2, image 67, where there is small bowel wall thickening seen. No appendix abnormality is seen. A moderate to prominent volume of stool can be seen within the colon. Peritoneum: Moderate ascites is seen. No free air. Ventral Wall: There is a periumbilical hernia seen, which contains dilated loops of small bowel. Abdominal Nodes: No retroperitoneal or mesenteric adenopathy by size criteria. Vessels: Aorta and inferior vena cava are normal in size. Upper abdominal varices are seen. PELVIS: Pelvic Organs: The uterus appears normal for age. No adnexal masses are seen. Bladder: Unremarkable. Pelvic Nodes: No enlarged lymph nodes. Miscellaneous: No inguinal hernias are seen. Bones: Lower cervical spine fixation hardware is partially seen. At the T8 level, there is an anterior wedge deformity of approximately 30%. No acute features can be seen. There are new fractures seen at T10, T12, L1 and L2, with not seen on the 04/17/2023 examination, with approximately 20% loss of height at each of these levels. No significant posterior displacement fracture fragments can be seen. Focal L5-S1 degenerative change is seen. Mac VIII are IMPRESSION: Areas of ground-glass opacity can be seen within the lungs, which is nonspecific, although may be related to pulmonary edema. A few areas of subpleural opacity can be seen within the left lung, which may be related to infection. Cirrhotic liver with a recanalized umbilical vein and upper abdominal varices. There is moderate ascites. There is nonocclusive thrombus within the main portal vein, as before. There is a moderately sized periumbilical hernia, which contains dilated loops of small bowel. This hernia is worse than on 04/17/2023 examination. Likely partial small bowel obstruction, with a relative transition point seen within the anterior mid abdomen, where there is thickened small bowel seen. There is a moderate to prominent volume of stool seen within the colon, which is consistent with constipation. Interval mild fractures of superior endplates T10, T12, L1, and L2, with 10-20% loss of height at these levels. Additional findings: Partial visualization of cervical spine fixation hardware Moderate coronary artery calcification Focal L5-S1 degenerative change Dictated by: Thom Presley M.D. on 06/06/2023 at 18:33 Approved by: Thom Presley M.D. on 06/06/2023 at 18:41
--- NOTE | 2023-06-06 20:03 | PC.NURSE ---
Parents very concerned and appropriate. Requesting information re: patient care, plan of care. Pt declining to give them access. Parents informed of this and reviewed privacy laws. They are fully agreeable with limitations.
== END 2023-06-06 20:20 | disposition left against medical advice (07) ==
PROVIDERS: Emergency Provider Emergency Medicine
DX: K72.10 Chronic hepatic failure without coma (principal); N17.9 Acute kidney failure, unspecified; D64.9 Anemia, unspecified; R06.02 Shortness of breath
CPT/HCPCS: 36415; 36430; 71260; 74177; 80053; 81003; 83690; 83735; 85025; 85610; 86850; 86900; 86901; 99284; P9016; Q9967

== ENCOUNTER → 2023-06-10 09:06 | Outpatient (CLI) | payer SELFPAY | PROVIDERS: Visit Provider Nurse Practitioner Family | DX: L03.90 Cellulitis, unspecified (principal) | CPT/HCPCS: 87070; 87075; 87205 ==

== ENCOUNTER → 2023-06-15 13:45 | Outpatient (CLI) | payer OTHER, SELFPAY | PROVIDERS: Referring Provider Internal Medicine; Visit Provider Surgery | DX: L89.93 Pressure ulcer of unspecified site, stage 3 (principal); R60.0 Localized edema; L53.9 Erythematous condition, unspecified | CPT/HCPCS: 87070; 87075; 87077; 87147; 87186; 87205; 97597; 99204; 99213 ==

== ENCOUNTER → 2023-06-16 15:40 | Outpatient (CLI) | payer OTHER, MEDICAID, SELFPAY ==
[2023-06-16 16:01] LABS: Add Manual Diff / Slide Review NO; Basophils Absolute Auto 100 /uL (0-100); Basophils Percent Auto 0.8 % (0-2); Eosinophils Absolute Auto 100 /uL (0-450); Eosinophils Percent Auto 1.6 % (2-4); Hematocrit 22.9 % (36-46); Hemoglobin 7.8 g/dL (12.0-16.0); Lymphocytes Absolute Auto 400 /uL (1100-4500); Lymphocytes Percent Auto 4.8 % (25-40); Mean Corpuscular HGB Conc 33.9 % (30-36); Mean Corpuscular Hemoglobin 30.5 PG (26-34); Monocytes Absolute Auto 1300 /uL (0-900); Monocytes Percent Auto 17.4 % (3-14); Neutrophils Absolute Auto 5700 /uL (1500-7000); Neutrophils Percent Auto 75.4 % (50-75); Platelet Count 280 X10^3/uL (150-400); Red Blood Cell Count 2.55 X10^6/uL (4.0-5.2); Red Cell Distribution Width 17.4 % (11.6-14.8); White Blood Cell Count 7.5 X10^3/uL (4.5-11.0)
[2023-06-16 16:22] LABS: Alanine Aminotransferase 37 IU/L (<35); Albumin 3.7 g/dL (3.5-5.0); Albumin Globulin Ratio 1.2 (1.0-2.8); Alkaline Phosphatase 189 U/L (38-126); Aspartate Aminotransferase 49 IU/L (14-36); BUN Creatinine Ratio 36.1 (6-22); Bilirubin Total 1.1 mg/dL (0.2-1.3); Blood Urea Nitrogen 60 mg/dL (7-17); Calcium 9.1 mg/dL (8.4-10.2); Carbon Dioxide 18 mmol/L (22-32); Chloride 94 mmol/L (98-107); Estimated Glomerular Filt Rate 36 mL/min (>60); Globulin 3.2 g/dL (1.7-4.1); Glucose 92 mg/dL (70-100); HEMOLYSIS < 15 (0-50); Potassium 5.3 mmol/L (3.4-5.1); Sodium 121 mmol/L (137-145); Total Protein 6.9 g/dL (6.3-8.2)
== END ==
PROVIDERS: PCP Student in an Organized Health Care Education/Training Program
DX: R68.89 Other general symptoms and signs (principal); K74.60 Unspecified cirrhosis of liver
CPT/HCPCS: 36415; 80053; 85025

== ENCOUNTER 2023-06-16 18:06 | Emergency (ER) | payer OTHER, SELFPAY ==
[2023-06-16] VITALS (14 sets, daily range): BP systolic 104–129; BP diastolic 60–71; PULSE 95–110; RESP 15–36; TEMP 37.1; O2SAT 100; BMI 19.6
--- NOTE | 2023-06-16 18:29 | ED_ITS ---
HPI - Recheck/Abnormal Lab/Rx General Chief Complaint: Recheck/Abnormal Lab/Rx Stated Complaint: dr ref/sodium low Time Seen by Provider: 06/16/23 18:14 Source: patient Mode of arrival: Ambulatory History of Present Illness HPI narrative: ?53-year-old female smoker with extensive history of alcohol abuse and resultant liver failure with history of iron-deficiency anemia,? esophageal varices, chronic ascites and weekly paracentesis ascites? presents stating that she has low sodium. She felt a bit foggy but is otherwise absent of complaint. She denies any blurred vision or trouble with speech. No chest pain or shortness of breath. No nausea, vomiting or diarrhea. No change in medications or diet. She was seen and evaluated by myself a week or so ago and was found to have acute on chronic kidney injury, was transfused some packed cells and was subsequently discharged. Related Data Home Medications Medication Instructions Recorded Confirmed calcium carbonate 600 mg-vitamin 1 cap PO DAILY 03/08/20 06/10/23 D3 12.5 mcg (500 unit) capsule (Calcium 600 with Vitamin D3) multivitamin with minerals 1 tab PO DAILY 03/08/20 06/10/23 (Hair,Skin and Nails tablet) lactulose 10 gram/15 mL oral 30 ml PO DAILY 10/10/21 06/10/23 solution omeprazole 40 mg capsule,delayed 40 mg PO DAILY 06/06/23 06/10/23 release ferrous gluconate 324 mg (38 mg 324 mg PO .QOD 06/16/23 06/16/23 iron) tablet magnesium 200 mg tablet 400 mg PO DAILY 06/16/23 06/16/23 potassium chloride 20 mEq 20 meq PO DAILY 06/16/23 06/16/23 tablet,extended release spironolactone 100 mg tablet 200 mg PO BID 06/16/23 06/16/23 Previous Rx's Medication Instructions Recorded doxycycline hyclate 100 mg capsule 100 mg PO BID #20 caps 06/10/23 mupirocin 2 % topical ointment 1 applic topical TID #22 grams 06/10/23 furosemide 40 mg tablet 80 mg PO BID #90 tabs 06/16/23 lidocaine 5 % topical patch 1 patch topical DAILY #30 ea 06/16/23 trazodone 50 mg tablet 50 mg PO BEDTIME PRN insomnia #30 06/16/23 tabs Allergies Allergy/AdvReac Type Severity Reaction Status Date / Time losartan AdvReac Intermediate Feels Verified 06/16/23 14:44 dopey, spaced out, sore throat, runny nose. lisinopril AdvReac Mild cough Verified 06/16/23 14:44 Review of Systems Review of Systems Narrative: GENERAL: See HPI HEENT: Denies sinus pain, ear pain, sore throat, difficulty swallowing, dizziness. RESPIRATORY: Denies dyspnea, cough, wheezing, hemoptysis, sputum. CARDIOVASCULAR: Denies chest pain, palpitations, orthopnea, edema, GASTROINTESTINAL: See HPI : Denies dysuria, frequency, incontinence, hematuria, urinary retention. MUSCULOSKELETAL: denies weakness, joint pain, or bony pain SKIN: Denies rash, skin lesions, or other NEUROLOGIC: See HPI PSYCHIATRIC: No concerning psychosocial issues. 12 point review of systems is negative except for those stated above Patient History Medical History Abnormal TSH Ascites (01/2020) Chicken pox Chronic left hip pain (2014) Cirrhosis Eczema Elevated blood protein Esophageal varices without bleeding (01/2020) ETOH abuse (2009) Hypokalemia Hyponatremia Insomnia Iron deficiency anemia Liver disease Mid back pain, chronic (1999) Monoclonal gammopathy Rib injury Screening for malignant neoplasm of colon Superior mesenteric vein thrombosis Surgical History Anesthesia History of back surgery Social History household members: friend(s) Smoking Status: Current every day smoker Tobacco: How many years used: 35 quit status: not considering quitting second hand exposure: Yes (work) alcohol intake: current substance use type: does not use Smoking Status: Current every day smoker tobacco type: cigarettes alcohol intake frequency: other Alcohol type: hard liquor Substance Use Type: does not use Exam Narrative Exam Narrative: GENERAL: [53] year old patient appears stated age. Well-developed patient, in mild distress. HEAD: Atraumatic. Normocephalic. EYES: Pupils equal round and reactive. Extraocular motions intact. No scleral icterus. No injection or drainage. ENT: Dry mucous membranes Nose without bleeding, purulent drainage. Throat without erythema, tonsillar hypertrophy or exudate. Airway patent. NECK: Trachea midline. Non tender CARDIOVASCULAR: Regular rate and rhythm without murmurs, gallops, or rubs. RESPIRATORY: Clear to auscultation. Breath sounds equal bilaterally. No wheezes, rales, or rhonchi. GASTROINTESTINAL: Abdomen soft, large chronic ventral hernia with small area of overlying skin breakdown, no bleeding, no drainage, no surrounding erythema induration or fluctuance. EXTREMITIES: No edema or joint tenderness. BACK: Nontender without deformity or crepitance. No flank tenderness. NEURO: AOx3. SKIN: No rash or erythema of visible areas Initial Vital Signs Initial Vital Signs: Vital Signs Pulse Rate 102 H 06/16/23 18:10 Pulse Oximetry 100 06/16/23 18:10 Course Orders Ordered: ED Orders 06/16/23 18:20 Basic Metabolic Panel Stat 06/16/23 18:59 Creatinine Urine Random Stat Sodium Urine Random Stat 06/16/23 20:45 BMP [Basic Metabolic Panel] Stat Complete Blood Count AUTO DIFF Stat 06/16/23 21:17 US renal complete Stat Discontinued Medications Sodium Chloride (Normal Saline 0.9%) 1,000 mls @ 1,000 mls/hr IV BOLUS ONE Stop: 06/16/23 19:25 Last Infusion: 06/16/23 19:57 Dose: 0 mls/hr Documented By: Admin: 06/16/23 18:31 Dose: 1,000 mls/hr Documented By: JUNG Sodium Chloride (Normal Saline 0.9%) 500 mls @ 1,000 mls/hr IV BOLUS ONE Stop: 06/16/23 20:05 Last Infusion: 06/16/23 20:44 Dose: 0 mls/hr Documented By: Admin: 06/16/23 20:00 Dose: 1,000 mls/hr Documented By: FAMILIA Ondansetron HCl (Ondansetron 4 Mg/2 Ml Inj) 4 mg IV NOW ONE Stop: 06/16/23 20:14 Last Admin: 06/16/23 20:16 Dose: 4 mg Documented By: FAMILIA Vital Signs Vital signs: Vital Signs - 8 hr 06/16/23 18:15 06/16/23 18:10 06/16/23 18:11 Temperature 98.7 F Pulse Rate 103 H 102 H 101 H Respiratory Rate 20 Blood Pressure 129/63 Pulse Oximetry 100 100 100 Oxygen Delivery Method Room Air 06/16/23 18:11 06/16/23 18:30 06/16/23 19:00 Temperature Pulse Rate 100 H 102 H Respiratory Rate 19 21 Blood Pressure 129/63 Pulse Oximetry 100 100 Oxygen Delivery Method 06/16/23 19:30 06/16/23 20:00 06/16/23 20:30 Temperature Pulse Rate 103 H 110 H 101 H Respiratory Rate 36 H 31 H 20 Blood Pressure Pulse Oximetry 100 100 100 Oxygen Delivery Method 06/16/23 20:44 06/16/23 20:44 06/16/23 21:00 Temperature Pulse Rate 100 H Respiratory Rate 27 H Blood Pressure 124/71 104/63 Pulse Oximetry 100 Oxygen Delivery Method 06/16/23 21:00 06/16/23 21:30 06/16/23 21:30 Temperature Pulse Rate 103 H 95 H Respiratory Rate 22 15 Blood Pressure 113/60 Pulse Oximetry 100 100 Oxygen Delivery Method 06/16/23 22:00 06/16/23 22:00 06/16/23 22:19 Temperature Pulse Rate 101 H 103 H Respiratory Rate 21 19 Blood Pressure 111/62 Pulse Oximetry 100 100 Oxygen Delivery Method 06/16/23 22:19 06/16/23 22:30 06/16/23 22:30 Temperature Pulse Rate 105 H Respiratory Rate 18 Blood Pressure 106/62 114/68 Pulse Oximetry 100 Oxygen Delivery Method MDM - Recheck/Abnormal Lab/Rx Lab Data 06/16/23 20:45 06/16/23 20:45 Labs: Lab Results 06/16/23 06/16/23 06/16/23 Range/Units 18:20 18:59 20:45 WBC 6.6 (4.5-11.0) X10^3/uL RBC 2.34 L (4.0-5.2) X10^6/uL Hgb 7.1 L (12.0-16.0) g/dL Hct 21.1 L (36-46) % MCV 90.0 (80-100) fL MCH 30.5 (26-34) PG MCHC 33.8 (30-36) % RDW 17.1 H (11.6-14.8) % Plt Count 246 (150-400) X10^3/uL Neut % (Auto) 79.2 H (50-75) % Lymph % (Auto) 4.2 L (25-40) % [place] % (Auto) 13.7 (3-14) % Eos % (Auto) 2.2 (2-4) % Baso % (Auto) 0.7 (0-2) % Neut # (Auto) 5200 (4287-9513) /uL Lymph # (Auto) 300 L (2202-9274) /uL [place] # (Auto) 900 (0-900) /uL Eos # (Auto) 100 (0-450) /uL Baso # (Auto) 0 (0-100) /uL Sodium 123 L (137-145) mmol/L Potassium 5.5 H (3.4-5.1) mmol/L Chloride 93 L (98-107) mmol/L Carbon Dioxide 17 L (22-32) mmol/L BUN 62 H (7-17) mg/dL Creatinine 1.71 H (0.52-1.04) mg/dL Estimated GFR 35 L (>60) mL/min BUN/Creatinine Ratio 36.3 H (6-22) Glucose 112 H (70-100) mg/dL Calcium 9.5 (8.4-10.2) mg/dL Ur Random Sodium < 5 L (30-90) mmol/L Urine Creatinine 70.2 mg/dL 06/16/23 Range/Units 20:45 WBC (4.5-11.0) X10^3/uL RBC (4.0-5.2) X10^6/uL Hgb (12.0-16.0) g/dL Hct (36-46) % MCV (80-100) fL MCH (26-34) PG MCHC (30-36) % RDW (11.6-14.8) % Plt Count (150-400) X10^3/uL Neut % (Auto) (50-75) % Lymph % (Auto) (25-40) % [place] % (Auto) (3-14) % Eos % (Auto) (2-4) % Baso % (Auto) (0-2) % Neut # (Auto) (5222-8842) /uL Lymph # (Auto) (6565-5408) /uL [place] # (Auto) (0-900) /uL Eos # (Auto) (0-450) /uL Baso # (Auto) (0-100) /uL Sodium 125 L (137-145) mmol/L Potassium 4.9 (3.4-5.1) mmol/L Chloride 99 (98-107) mmol/L Carbon Dioxide 15 L (22-32) mmol/L BUN 55 H (7-17) mg/dL Creatinine 1.51 H (0.52-1.04) mg/dL Estimated GFR 41 L (>60) mL/min BUN/Creatinine Ratio 36.4 H (6-22) Glucose 95 (70-100) mg/dL Calcium 8.3 L (8.4-10.2) mg/dL Ur Random Sodium (30-90) mmol/L Urine Creatinine mg/dL Urine Dip Bedside Urine Glucose Negative Bedside Urine Bilirubin - Negative Bedside Urine Ketone - Negative Urine Specific [place] 1.015 Bedside Urine Occult Blood - Negative Bedside Urine pH 6.0 Bedside Urine Protein - Negative Bedside Urine Urobilinogen - Negative Bedside Urine Nitrite - Negative Bedside Urine Leukocytes - Negative Esterase MDM Narrative Medical decision making narrative: [53] year old patient presents with low-sodium Multiple etiologies for patient's symptoms considered including, but not limited to: [Dehydration versus chronic change versus other] Prior Charts reviewed in our EMR Primary Historian: patient Labs reviewed and interpreted by myself: No leukocytosis or left shift, hemoglobin 7.8, initial sodium 121, repeat up to 125, she normally runs 126-129. Creatinine initially 1.7, improved to 1.5, this is closed to her recent baseline Imaging reviewed: Renal ultrasound demonstrates no obstructive process Patient's history and physical exam are reassuring. She denies any medication or dietary change. Initial sodium 121, improved to 125, near her baseline. She has dry mucous membranes and appears hypovolemic. She is given a L and a half of fluid and repeat shows improvement in sodium and renal function. She feels complete resolution of any symptoms that she may have had. There is a slight drop in her hemoglobin this is likely delusional, still above the threshold for transfusion and she is asymptomatic therefore no indication at this time. She is appropriate for discharge, no indication for hospitalization. Patient's symptoms improved over duration of stay with above-stated therapies. Findings and discharge diagnosis discussed with patient/family followed by verbalization of understanding Return precautions discussed with patient/family whom verbalize understanding of diagnosis and plan Discharge Plan Departure Patient Disposition: Home Clinical Impression: Chronic hyponatremia, Acute dehydration Instructions: DI for Hyponatremia Activity Restrictions/Additional Instructions: *You have been diagnosed with [acute on chronic hyponatremia, dehydration] *What to do: *Please continue to take your regular medications as directed. *Please follow up with your primary care provider in 2-3 days, call for an lisa ointment. Let them know you were seen in the Emergency Department and that we ask that you be seen in follow up. We will electronically transmit a record of today's note if your PCP is in our system *If you do not have a primary care provider please contact the [facility] Resource line at [phone]. They will ask some questions about your medical history and help get you set up with a doctor in the community. *Return to Emergency Department if you should have any new, worsening or con cerning symptoms, such as [fever greater than 101 F, shaking chills, worsening pain, persistent vomiting or other bothersome symptoms] Prescriptions: No Action doxycycline hyclate 100 mg capsule 100 mg PO BID Qty: 20 0RF mupirocin 2 % ointment 1 applic topical TID Qty: 22 0RF magnesium 200 mg tablet 400 mg PO DAILY ferrous gluconate 324 mg (38 mg iron) tablet 324 mg PO .QOD furosemide 40 mg tablet 80 mg PO BID Qty: 90 3RF spironolactone 100 mg tablet 200 mg PO BID trazodone 50 mg tablet 50 mg PO BEDTIME PRN (Reason: insomnia) Qty: 30 3RF lidocaine 5 % adhesive patch,medicated 1 patch topical DAILY Qty: 30 2RF Rx Instructions: leave on most painful area for up to 12 hrs calcium carbonate-vitamin D3 [Calcium 600 with Vitamin D3] 600 mg(1,500mg) - 500 unit capsule 1 cap PO DAILY multivitamin with minerals [Hair,Skin and Nails] Tablet 1 tab PO DAILY lactulose 10 gram/15 mL solution 30 ml PO DAILY omeprazole 40 mg capsule,delayed release(DR/EC) 40 mg PO DAILY potassium chloride 20 mEq tablet extended release 20 meq PO DAILY Referrals: Stacy Mittal MD [Primary Care Provider] - Stand Alone Forms: Patient Portal/API
[2023-06-16] MEDS: SODIUM CHLORIDE 0.9% 1,000 ML 1000 ML IV (18:31)
[2023-06-16 18:42] LABS: BUN Creatinine Ratio 36.3 (6-22); Blood Urea Nitrogen 62 mg/dL (7-17); Calcium 9.5 mg/dL (8.4-10.2); Carbon Dioxide 17 mmol/L (22-32); Chloride 93 mmol/L (98-107); Estimated Glomerular Filt Rate 35 mL/min (>60); Glucose 112 mg/dL (70-100); HEMOLYSIS < 15 (0-50); Sodium 123 mmol/L (137-145)
[2023-06-16 18:44] LABS: Potassium 5.5 mmol/L (3.4-5.1)
[2023-06-16 19:30] LABS: Creatinine Urine Random 70.2 mg/dL
[2023-06-16 19:38] LABS: Sodium Urine Random < 5 mmol/L (30-90)
[2023-06-16] MEDS: SODIUM CHLORIDE 0.9% 500 ML 1000 ML IV (20:00)
[2023-06-16] MEDS: ONDANSETRON 4 MG/2 ML INJ IV (20:16)
[2023-06-16 20:51] LABS: Add Manual Diff / Slide Review NO; Basophils Absolute Auto 0 /uL (0-100); Basophils Percent Auto 0.7 % (0-2); Eosinophils Absolute Auto 100 /uL (0-450); Eosinophils Percent Auto 2.2 % (2-4); Hematocrit 21.1 % (36-46); Hemoglobin 7.1 g/dL (12.0-16.0); Lymphocytes Absolute Auto 300 /uL (1100-4500); Lymphocytes Percent Auto 4.2 % (25-40); Mean Corpuscular HGB Conc 33.8 % (30-36); Mean Corpuscular Hemoglobin 30.5 PG (26-34); Monocytes Absolute Auto 900 /uL (0-900); Monocytes Percent Auto 13.7 % (3-14); Neutrophils Absolute Auto 5200 /uL (1500-7000); Neutrophils Percent Auto 79.2 % (50-75); Platelet Count 246 X10^3/uL (150-400); Red Blood Cell Count 2.34 X10^6/uL (4.0-5.2); Red Cell Distribution Width 17.1 % (11.6-14.8); White Blood Cell Count 6.6 X10^3/uL (4.5-11.0)
[2023-06-16 21:03] LABS: BUN Creatinine Ratio 36.4 (6-22); Blood Urea Nitrogen 55 mg/dL (7-17); Calcium 8.3 mg/dL (8.4-10.2); Carbon Dioxide 15 mmol/L (22-32); Chloride 99 mmol/L (98-107); Estimated Glomerular Filt Rate 41 mL/min (>60); Glucose 95 mg/dL (70-100); HEMOLYSIS < 15 (0-50); Potassium 4.9 mmol/L (3.4-5.1); Sodium 125 mmol/L (137-145)
--- NOTE | 2023-06-16 21:17 | DI.US.S_ITS ---
PROCEDURE: US RENAL COMPLETE INDICATIONS: RENAL FAILURE TECHNIQUE: Real-time scanning was performed of the kidneys and bladder, with image documentation. COMPARISON: [facility], CT, CT CHEST ABD PEL W CON, 06/06/2023, 18:29. FINDINGS: Kidneys: Right kidney measures 10 cm. No hydronephrosis. No stones identified. Cortex within normal limits bilaterally. Left kidney measures 11 cm. No hydronephrosis. No stones identified. Bladder: Not well seen. Miscellaneous: Ascites is present. IMPRESSION: No hydronephrosis. Large ascites. Bladder is not well seen. Dictated by: Erasto Bentley M.D. on 06/16/2023 at 22:42 Approved by: Erasto Bentley M.D. on 06/16/2023 at 22:43
== END 2023-06-16 22:39 | disposition home or self-care (01) ==
PROVIDERS: Emergency Provider Emergency Medicine; PCP Student in an Organized Health Care Education/Training Program
DX: E87.1 Hypo-osmolality and hyponatremia (principal); E86.0 Dehydration; R68.89 Other general symptoms and signs; K74.60 Unspecified cirrhosis of liver
CPT/HCPCS: 36415; 76770; 80048; 80053; 81003; 82570; 84300; 85025; 96361; 96374; 99284; J2405

== ENCOUNTER → 2023-06-23 09:02 | Outpatient (CLI) | payer OTHER, MEDICAID, SELFPAY | PROVIDERS: PCP Student in an Organized Health Care Education/Training Program; Referring Provider Internal Medicine; Visit Provider Surgery | DX: L89.93 Pressure ulcer of unspecified site, stage 3 (principal); K70.31 Alcoholic cirrhosis of liver with ascites | CPT/HCPCS: 97597; 99214 ==

== ENCOUNTER 2023-06-23 12:47 | Inpatient (IN) | payer OTHER, MEDICAID, SELFPAY ==
[2023-06-23] VITALS (30 sets, daily range): BP systolic 97–130; BP diastolic 53–66; PULSE 99–124; RESP 13–40; TEMP 36.5–36.8; O2SAT 97–100; BMI 19.8
[2023-06-23 14:02] LABS: Add Manual Diff / Slide Review NO; Basophils Absolute Auto 100 /uL (0-100); Basophils Percent Auto 0.9 % (0-2); Eosinophils Absolute Auto 100 /uL (0-450); Eosinophils Percent Auto 2.2 % (2-4); Hematocrit 23.1 % (36-46); Hemoglobin 7.9 g/dL (12.0-16.0); Lymphocytes Absolute Auto 500 /uL (1100-4500); Mean Corpuscular HGB Conc 34.1 % (30-36); Mean Corpuscular Hemoglobin 30.1 PG (26-34); Mean Corpuscular Volume 88.3 fL (80-100); Monocytes Absolute Auto 900 /uL (0-900); Monocytes Percent Auto 12.9 % (3-14); Neutrophils Absolute Auto 5100 /uL (1500-7000); Platelet Count 334 X10^3/uL (150-400); Red Blood Cell Count 2.62 X10^6/uL (4.0-5.2); Red Cell Distribution Width 17.9 % (11.6-14.8); White Blood Cell Count 6.7 X10^3/uL (4.5-11.0)
[2023-06-23 14:15] LABS: Magnesium 2.1 mg/dL (1.6-2.3)
[2023-06-23 14:19] LABS: INR 1.3 (0.9-1.3)
[2023-06-23 14:57] LABS: Alanine Aminotransferase 32 IU/L (<35); Albumin 3.7 g/dL (3.5-5.0); Albumin Globulin Ratio 1.2 (1.0-2.8); Alkaline Phosphatase 146 U/L (38-126); Aspartate Aminotransferase 48 IU/L (14-36); BUN Creatinine Ratio 32.2 (6-22); Bilirubin Total 0.7 mg/dL (0.2-1.3); Blood Urea Nitrogen 47 mg/dL (7-17); Calcium 9.2 mg/dL (8.4-10.2); Carbon Dioxide 16 mmol/L (22-32); Chloride 99 mmol/L (98-107); Estimated Glomerular Filt Rate 43 mL/min (>60); Globulin 3.1 g/dL (1.7-4.1); Glucose 133 mg/dL (70-100); HEMOLYSIS 17 (0-50); Potassium 4.8 mmol/L (3.4-5.1); Sodium 127 mmol/L (137-145); Total Protein 6.8 g/dL (6.3-8.2)
--- NOTE | 2023-06-23 15:48 | PC.ADMIT ---
Addendum entered by Calista Cazares R.N. 06/23/23 18:05: Paracentesis done at this time by Dr. Talbot at bedside. Total of 8600 ml of clear straw fluid resulted. Pt tolerated well, denies pain. BP stable 109/63, HR in the 110s. Original Note: Admission Note: Patient arrived to room 229 about 1450 from [facility] wound clinic via wheelchair. Ambulated to bed, steady on feet. Alert and oriented x3. RA with SpO2 100%. ST in the low 100s. Denies pain. Dressing to abdomen changed today at wound clinic and is C/D/I. Abdomen is distended with large protruding mass to center. Plan for paracentesis this afternoon. Oriented to room and to call light/bed/tv controls. Call light within reach. Cell phone, electronic tablet, purse, shoes, clothing at bedside. Declines to lock up any valuables. The patient,Aleena Judge,53 y/o, was given written information regarding hospital policies, unit procedures and contact persons. Patient's smoking status: Current every day smoker. Vital Signs - 8 hr 06/23/23 14:30 06/23/23 15:40 Temperature 98.3 F Pulse Rate 107 H Respiratory Rate 15 Blood Pressure 130/65 Pulse Oximetry 100 Oxygen Delivery Method Room Air Oxygen Flow Rate 0
[2023-06-23 16:18] LABS: MRSA (Nasal) PCR Not Detected (Not Detect)
[2023-06-23] MEDS: LIDOCAINE 1% 20 ML INJ (17:00)
--- NOTE | 2023-06-23 18:16 | PM.PROC.1 ---
Procedures Date/Time Date of procedure: 06/23/23 Time of procedure: 18:00 General Procedure description: Paracentesis Procedure Note Prior to the procedure formal consent was obtained from the patient after discussion of risks and benefits of the procedure, and allowing the patient to ask any questions. Ultrasound was used to find a suitable pocket, and the site was marked. A time-out was performed. The site was then prepped and draped in usual sterile fashion, and a 16 gauge needle was inserted with return of clear yellow fluid. A total of approximately 8600 mL was obtained before drainage stopped. There was no bleeding and the patient tolerated the procedure well. There were no further complications. Joon Talbot DO
[2023-06-23] MEDS: ALBUMIN HUMAN 50 GM/200 ML VIAL IV (18:23)
--- NOTE | 2023-06-23 18:38 | PM.HP.1 ---
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 Dr. Zepeda gen surg requested admit to take to OR for closure of the herniated wound and paracentesis qod while admitted. Patient states she has dealt with this wound for quite awhile and is very frustrated that nobody will help her take care of it. She is thankful Dr. Zepeda is willing to. She gets weekly paracentesis of up to 12-15L taken off. Her last para was thursday 5 days ago. She denies CP, SBO, abd pain or diarrhea. [facility] Medical History Abnormal TSH Ascites (01/2020) Chicken pox Chronic left hip pain (2014) Cirrhosis Eczema Elevated blood protein Esophageal varices without bleeding (01/2020) ETOH abuse (2009) Hypokalemia Hyponatremia Insomnia Iron deficiency anemia Liver disease Mid back pain, chronic (1999) Monoclonal gammopathy Rib injury Screening for malignant neoplasm of colon [place] mesenteric vein thrombosis Surgical History Anesthesia History of back surgery Social History household members: friend(s) Smoking Status: Current every day smoker Tobacco: How many years used: 35 quit status: not considering quitting second hand exposure: Yes (work) alcohol intake: never substance use type: does not use Meds Home Medications and Allergies Home Medications Medication Instructions Recorded Confirmed Type calcium carbonate 600 mg-vitamin 1 cap PO DAILY 03/08/20 06/23/23 History D3 12.5 mcg (500 unit) capsule (Calcium 600 with Vitamin D3) multivitamin with minerals 1 tab PO DAILY 03/08/20 06/23/23 History (Hair,Skin and Nails tablet) lactulose 10 gram/15 mL oral 30 ml PO DAILY 10/10/21 06/23/23 History solution omeprazole 40 mg capsule,delayed 40 mg PO DAILY 06/06/23 06/23/23 History release ferrous gluconate 324 mg (38 mg 324 mg PO .QOD 06/16/23 06/23/23 History iron) tablet furosemide 40 mg tablet 80 mg (2 x 40 mg) PO BID #90 tabs 06/16/23 06/23/23 Rx lidocaine 5 % topical patch 1 patch topical DAILY #30 ea 06/16/23 06/23/23 Rx magnesium 200 mg tablet 400 mg PO DAILY 06/16/23 06/23/23 History potassium chloride 20 mEq 20 meq PO DAILY 06/16/23 06/23/23 History tablet,extended release spironolactone 100 mg tablet 200 mg PO BID 06/16/23 06/23/23 History trazodone 50 mg tablet 50 mg PO BEDTIME PRN insomnia #30 06/16/23 06/23/23 Rx tabs Allergies Allergy/AdvReac Type Severity Reaction Status Date / Time losartan AdvReac Intermediate Feels Verified 06/16/23 14:44 dopey, spaced out, sore throat, runny nose. lisinopril AdvReac Mild cough Verified 06/16/23 14:44 Review of Systems Review of Systems Narrative: All other systems reviewed with the patient and are negative unless otherwise stated. Exam Vital Signs (past 8 hours): - 06/23/23 14:30 06/23/23 14:46 06/23/23 15:00 Temperature 98.3 F Pulse Rate 107 H 102 H 113 H Respiratory Rate 15 16 24 Blood Pressure 130/65 Pulse Oximetry 100 Oxygen Delivery Method Oxygen Flow Rate 0 06/23/23 15:23 06/23/23 15:23 06/23/23 15:30 Temperature Pulse Rate 99 H 99 H Respiratory Rate 36 H 27 H Blood Pressure 119/66 Pulse Oximetry 100 100 Oxygen Delivery Method Oxygen Flow Rate 06/23/23 15:40 06/23/23 16:00 06/23/23 16:30 Temperature Pulse Rate 100 H 101 H Respiratory Rate 13 13 Blood Pressure Pulse Oximetry 99 97 Oxygen Delivery Method Room Air Oxygen Flow Rate 06/23/23 16:57 06/23/23 16:57 06/23/23 17:00 Temperature Pulse Rate 107 H 109 H Respiratory Rate 13 14 Blood Pressure 115/66 Pulse Oximetry 98 99 Oxygen Delivery Method Oxygen Flow Rate 06/23/23 17:14 06/23/23 17:14 06/23/23 17:29 Temperature Pulse Rate 104 H Respiratory Rate 16 Blood Pressure 115/61 106/56 L Pulse Oximetry 98 Oxygen Delivery Method Oxygen Flow Rate 06/23/23 17:29 06/23/23 17:30 06/23/23 17:35 Temperature Pulse Rate 105 H 104 H Respiratory Rate 17 19 Blood Pressure 112/58 L Pulse Oximetry 99 99 Oxygen Delivery Method Oxygen Flow Rate 06/23/23 17:35 06/23/23 17:41 06/23/23 17:41 Temperature Pulse Rate 107 H 108 H Respiratory Rate 30 H 40 H Blood Pressure 101/60 Pulse Oximetry 99 99 Oxygen Delivery Method Oxygen Flow Rate 06/23/23 17:47 06/23/23 17:47 06/23/23 18:00 Temperature Pulse Rate 103 H 122 H Respiratory Rate 30 H 21 Blood Pressure 109/63 Pulse Oximetry 98 Oxygen Delivery Method Oxygen Flow Rate 06/23/23 18:30 06/23/23 18:30 Temperature Pulse Rate 122 H Respiratory Rate 38 H Blood Pressure 98/57 L Pulse Oximetry Oxygen Delivery Method Oxygen Flow Rate Oxygen Delivery Method Room Air Oxygen Flow Rate 0 Narrative Exam Narrative: GEN: no acute distress, ill-appearing and cachectic HEENT: moist mucous membranes, PERRL NECK: trachea midline, no JVD CV: regular rate and rhythm, no murmurs PULM: clear bilaterally ABD: firm, distended, large ventral hernia contaning bowel, 3x3cm stage 2 wound atop of vental hernia with bowel almost visible beneath EXT: warm and well perfused with no edema NEURO: awake, alert, oriented, no focal deficits Objective Labs 06/23/23 13:51 06/23/23 14:40 Labs: Laboratory Results - last 24 hr 06/23/23 06/23/23 06/23/23 13:48 13:51 14:40 WBC 6.7 RBC 2.62 L Hgb 7.9 L Hct 23.1 L MCV 88.3 MCH 30.1 MCHC 34.1 RDW 17.9 H Plt Count 334 Neut % (Auto) 77.0 H Lymph % (Auto) 7.0 L [place] % (Auto) 12.9 Eos % (Auto) 2.2 Baso % (Auto) 0.9 Neut # (Auto) 5100 Lymph # (Auto) 500 L [place] # (Auto) 900 Eos # (Auto) 100 Baso # (Auto) 100 PT 15.0 H INR 1.3 Sodium 127 L Potassium 4.8 Chloride 99 Carbon Dioxide 16 L BUN 47 H Creatinine 1.46 H Estimated GFR 43 L BUN/Creatinine Ratio 32.2 H Glucose 133 H Calcium 9.2 Magnesium 2.1 Total Bilirubin 0.7 AST 48 H ALT 32 Alkaline Phosphatase 146 H Total Protein 6.8 Albumin 3.7 Globulin 3.1 Albumin/Globulin Ratio 1.2 Nasal Screen MRSA (PCR) Not detected Assessment & Plan Assessment & Plan narrative: # large bowel-containing ventral hernia with ulcer causing abdominal wall defect -gen surg consulted and will take to OR on 06/24, risk of bowel herniation through ulcer is high -NPO at midnight -patient understands she may during surgery and is ok with that # ESLD with large volume ascites -gets weekly skyler of 12-15L -performed bedside para of 8.6L and 50g albumin given -continue lasix, aldactone and lactulose # insomnia -continue trazodone PRN Code status is DNR. DVT prophylaxis with SCDs. Proxy is mother Tigist. I have reviewed home meds and used all available resources to reconcile the home meds. Case discussed with ED physician/APC and patient will be admitted to the hospitalist service for further workup and management. This patient will be admitted as inpatient and will require greater than 2 midnights of hospital time to treat defects. Quality VTE Deep Vein Thrombosis/Pulmonary Embolism Present on Admission: No
--- NOTE | 2023-06-23 18:39 | P.CONS_ITS ---
History of Present Illness Consult details Date Patient Seen: 06/23/23 Time Patient Seen: 18:39 Chief complaint: ventral abd wall defect Narrative: Veronica is a 53-year-old woman with end-stage liver disease, cirrhosis and ascites who has a longstanding, large ventral hernia. She developed a skin wound over the hernia which was treated at [facility] and today she went to wound care for treatment and Dr. Silva noted that there was just a thin layer of tissue, probably peritoneum, covering visible loops of bowel. She has not had drainage from the wound. She reports that she has been seen at [facility] for her hernia as well as by a marker assembler there. They referred her down to [facility] where she was seen by a buffing and polishing wheel repairer who discussed possible tips procedure but somehow it did not work out. She felt that the marker assembler at [facility] was dismissive and is hoping to heal the transfer her care to [place] but has not been in to see them yet. She had a ventral hernia repair many years ago through her midline incision Meds Home Medications and Allergies Home Medications Medication Instructions Recorded Confirmed Type calcium carbonate 600 mg-vitamin 1 cap PO DAILY 03/08/20 06/23/23 History D3 12.5 mcg (500 unit) capsule (Calcium 600 with Vitamin D3) multivitamin with minerals 1 tab PO DAILY 03/08/20 06/23/23 History (Hair,Skin and Nails tablet) lactulose 10 gram/15 mL oral 30 ml PO DAILY 10/10/21 06/23/23 History solution omeprazole 40 mg capsule,delayed 40 mg PO DAILY 06/06/23 06/23/23 History release ferrous gluconate 324 mg (38 mg 324 mg PO .QOD 06/16/23 06/23/23 History iron) tablet furosemide 40 mg tablet 80 mg (2 x 40 mg) PO BID #90 tabs 06/16/23 06/23/23 Rx lidocaine 5 % topical patch 1 patch topical DAILY #30 ea 06/16/23 06/23/23 Rx magnesium 200 mg tablet 400 mg PO DAILY 06/16/23 06/23/23 History potassium chloride 20 mEq 20 meq PO DAILY 06/16/23 06/23/23 History tablet,extended release spironolactone 100 mg tablet 200 mg PO BID 06/16/23 06/23/23 History trazodone 50 mg tablet 50 mg PO BEDTIME PRN insomnia #30 06/16/23 06/23/23 Rx tabs Allergies Allergy/AdvReac Type Severity Reaction Status Date / Time losartan AdvReac Intermediate Feels Verified 06/16/23 14:44 dopey, spaced out, sore throat, runny nose. lisinopril AdvReac Mild cough Verified 06/16/23 14:44 Exam Vital Signs (past 8 hours): - 06/23/23 14:30 06/23/23 14:46 06/23/23 15:00 Temperature 98.3 F Pulse Rate 107 H 102 H 113 H Respiratory Rate 15 16 24 Blood Pressure 130/65 Pulse Oximetry 100 Oxygen Delivery Method Oxygen Flow Rate 0 06/23/23 15:23 06/23/23 15:23 06/23/23 15:30 Temperature Pulse Rate 99 H 99 H Respiratory Rate 36 H 27 H Blood Pressure 119/66 Pulse Oximetry 100 100 Oxygen Delivery Method Oxygen Flow Rate 06/23/23 15:40 06/23/23 16:00 06/23/23 16:30 Temperature Pulse Rate 100 H 101 H Respiratory Rate 13 13 Blood Pressure Pulse Oximetry 99 97 Oxygen Delivery Method Room Air Oxygen Flow Rate 06/23/23 16:57 06/23/23 16:57 06/23/23 17:00 Temperature Pulse Rate 107 H 109 H Respiratory Rate 13 14 Blood Pressure 115/66 Pulse Oximetry 98 99 Oxygen Delivery Method Oxygen Flow Rate 06/23/23 17:14 06/23/23 17:14 06/23/23 17:29 Temperature Pulse Rate 104 H Respiratory Rate 16 Blood Pressure 115/61 106/56 L Pulse Oximetry 98 Oxygen Delivery Method Oxygen Flow Rate 06/23/23 17:29 06/23/23 17:30 06/23/23 17:35 Temperature Pulse Rate 105 H 104 H Respiratory Rate 17 19 Blood Pressure 112/58 L Pulse Oximetry 99 99 Oxygen Delivery Method Oxygen Flow Rate 06/23/23 17:35 06/23/23 17:41 06/23/23 17:41 Temperature Pulse Rate 107 H 108 H Respiratory Rate 30 H 40 H Blood Pressure 101/60 Pulse Oximetry 99 99 Oxygen Delivery Method Oxygen Flow Rate 06/23/23 17:47 06/23/23 17:47 06/23/23 18:00 Temperature Pulse Rate 103 H 122 H Respiratory Rate 30 H 21 Blood Pressure 109/63 Pulse Oximetry 98 Oxygen Delivery Method Oxygen Flow Rate 06/23/23 18:30 06/23/23 18:30 Temperature Pulse Rate 122 H Respiratory Rate 38 H Blood Pressure 98/57 L Pulse Oximetry Oxygen Delivery Method Oxygen Flow Rate Oxygen Delivery Method Room Air Oxygen Flow Rate 0 Narrative Exam Narrative: Abdomen is soft There is a large ventral hernia There is an open skin wound and a translucent thin layer of tissue through which loops of bowel are visible There is no ascites draining from the wound Objective Labs 06/23/23 13:51 06/23/23 14:40 Labs: Laboratory Results - last 24 hr 06/23/23 06/23/23 06/23/23 13:48 13:51 14:40 WBC 6.7 RBC 2.62 L Hgb 7.9 L Hct 23.1 L MCV 88.3 MCH 30.1 MCHC 34.1 RDW 17.9 H Plt Count 334 Neut % (Auto) 77.0 H Lymph % (Auto) 7.0 L [place] % (Auto) 12.9 Eos % (Auto) 2.2 Baso % (Auto) 0.9 Neut # (Auto) 5100 Lymph # (Auto) 500 L [place] # (Auto) 900 Eos # (Auto) 100 Baso # (Auto) 100 PT 15.0 H INR 1.3 Sodium 127 L Potassium 4.8 Chloride 99 Carbon Dioxide 16 L BUN 47 H Creatinine 1.46 H Estimated GFR 43 L BUN/Creatinine Ratio 32.2 H Glucose 133 H Calcium 9.2 Magnesium 2.1 Total Bilirubin 0.7 AST 48 H ALT 32 Alkaline Phosphatase 146 H Total Protein 6.8 Albumin 3.7 Globulin 3.1 Albumin/Globulin Ratio 1.2 Nasal Screen MRSA (PCR) Not detected [facility] Medical History Abnormal TSH Ascites (01/2020) Chicken pox Chronic left hip pain (2014) Cirrhosis Eczema Elevated blood protein Esophageal varices without bleeding (01/2020) ETOH abuse (2009) Hypokalemia Hyponatremia Insomnia Iron deficiency anemia Liver disease Mid back pain, chronic (1999) Monoclonal gammopathy Rib injury Screening for malignant neoplasm of colon Superior mesenteric vein thrombosis Surgical History Anesthesia History of back surgery Social History household members: friend(s) Tobacco & Substance Use Smoking Status: Current every day smoker Tobacco: How many years used: 35 quit status: not considering quitting second hand exposure: Yes (work) alcohol intake: never substance use type: does not use Assessment & Plan Assessment and plan (1) Ventral hernia without obstruction or gangrene: Status: Acute Plan I recommended she be admitted to the hospitalist and undergo paracentesis to decrease her ascites and abdominal distention. She should be NPO so that we can take her to the operating room tomorrow to attempt to excise the ulcer and close healthy skin. She would then need to undergo frequent paracentesis to keep the pressure down in her peritoneal cavity until the wound is completely healed. She understands that she is high risk for complications and due to her severe liver disease.
[2023-06-23] MEDS: SODIUM CHLORIDE 0.9% FLUSH 10 ML IV (20:12)
[2023-06-23] MEDS: FUROSEMIDE 40 MG TABLET 80 MG PO (20:12)
[2023-06-23] MEDS: LACTULOSE 20 GM/30 ML SOLUTION PO (20:12)
[2023-06-23] MEDS: SPIRONOLACTONE 25 MG TABLET 200 MG PO (20:12)
[2023-06-24] VITALS (57 sets, daily range): BP systolic 90–125; BP diastolic 53–76; PULSE 91–132; RESP 10–65; TEMP 36.1–37.2; O2SAT 95–100
[2023-06-24 05:07] LABS: Basophils Absolute Auto 0 /uL (0-100); Basophils Percent Auto 0.8 % (0-2); Eosinophils Absolute Auto 100 /uL (0-450); Eosinophils Percent Auto 1.6 % (2-4); INR 1.5 (0.9-1.3); Lymphocytes Absolute Auto 200 /uL (1100-4500); Mean Corpuscular HGB Conc 34.1 % (30-36); Mean Corpuscular Hemoglobin 30.4 PG (26-34); Mean Corpuscular Volume 89.1 fL (80-100); Monocytes Absolute Auto 700 /uL (0-900); Monocytes Percent Auto 13.1 % (3-14); Neutrophils Absolute Auto 4000 /uL (1500-7000); Neutrophils Percent Auto 80.5 % (50-75); Platelet Count 245 X10^3/uL (150-400); Prothrombin Time 17.5 SECONDS (10.1-12.7); Red Blood Cell Count 2.28 X10^6/uL (4.0-5.2); Red Cell Distribution Width 17.8 % (11.6-14.8)
[2023-06-24 06:01] LABS: Hemoglobin 6.9 g/dL (12.0-16.0)
[2023-06-24 06:02] LABS: Add Manual Diff / Slide Review SLIDE REVIEW; Hematocrit 20.3 % (36-46)
--- NOTE | 2023-06-24 06:03 | PC.NURSE ---
rn complex care note Pt A&Ox4, resting in bed, up with SBY assist to beside commode or bathroom, ARSHAD, VSS, afebrile, PPPx4, no edema, ST 100-110s, lungs clear, O2 sats >92% on RA, abd round, large ventral hernia distended with dsg CDI, urgent BMs after taking sched lactulose, pt requesting to have commode at bedside overnight, voiding clear yellow urine, skin slightly jaundiced, scattered abrasions on extrem, periph IV site patent, c/o discomfort to back, lidocaine patch ordered, pt declined any of the pain meds offered and states she prefers ibuprofen, aware, no new orders for ibuprofen, meds and labs as ordered, continue to monitor
[2023-06-24 06:33] LABS: Alanine Aminotransferase 29 IU/L (<35); Albumin 3.8 g/dL (3.5-5.0); Albumin Globulin Ratio 1.4 (1.0-2.8); Alkaline Phosphatase 143 U/L (38-126); Aspartate Aminotransferase 39 IU/L (14-36); BUN Creatinine Ratio 34.2 (6-22); Bilirubin Total 0.7 mg/dL (0.2-1.3); Blood Urea Nitrogen 39 mg/dL (7-17); Calcium 9.4 mg/dL (8.4-10.2); Carbon Dioxide 15 mmol/L (22-32); Chloride 98 mmol/L (98-107); Estimated Glomerular Filt Rate 57 mL/min (>60); Globulin 2.8 g/dL (1.7-4.1); Glucose 105 mg/dL (70-100); HEMOLYSIS < 15 (0-50); Potassium 4.4 mmol/L (3.4-5.1); Sodium 126 mmol/L (137-145); Total Protein 6.6 g/dL (6.3-8.2)
[2023-06-24] MEDS: LACTULOSE 20 GM/30 ML SOLUTION PO (08:19)
[2023-06-24] MEDS: FUROSEMIDE 40 MG TABLET 80 MG PO ×2 (08:19→20:53)
[2023-06-24] MEDS: PANTOPRAZOLE DR 40 MG TABLET PO (08:19)
[2023-06-24] MEDS: SPIRONOLACTONE 25 MG TABLET 200 MG PO (08:19)
[2023-06-24] MEDS: MAGNESIUM OXIDE 400 MG TABLET PO (08:19)
[2023-06-24] MEDS: SODIUM CHLORIDE 0.9% FLUSH 10 ML IV ×2 (08:21→20:53)
[2023-06-24 08:28] LABS: RBC Morphology Normal Morphology
--- NOTE | 2023-06-24 09:50 | DIET.CONS ---
Dietary Consultation Note Admission Date: 06/23/2023 12:47 Assessment: 53y F admitted for abd wall wound to peritoneum with end stage hepatic disease and cirrhosis referred to nutrition for cachexia. Pt currently getting weekly paracenteses removing 10-15L fluid. Pt current BMI 19.8 though unclear if dry weight due to quickly shifting fluid status. Pt attended wound care this week and was admitted to ED as bowel was visible due to ventral hernia and wound over this area. Pt has hx etoh use, hard liquor, cessation in March 2023. Ht: 172.72 cm Wt: 59 kg (unclear if dry weight) BMI: 19.8 Last BM: 06/22/23 (06/23/23 14:18) MNA: 11 Gabriel Score: 21 Diet: 06/24/23 00:01 NPO Diet Diet Modifications: NPO Type: NPO except for Meds Nutrition Percent Meal Consumed 100% 06/23/23 18:36 Percent Meal Consumed 100% 06/23/23 14:42 Labs: RBC 2.28 X10^6/uL (4.0-5.2) L 06/24/23 04:21 Hgb 6.9 g/dL (12.0-16.0) L* 06/24/23 04:21 Hct 20.3 % (36-46) L* 06/24/23 04:21 Creatinine 1.14 mg/dL (0.52-1.04) H 06/24/23 04:21 Nutrition Diagnosis: Severe Chronic Malnutrition r/t hypermetabolism in end stage liver disease aeb BMI 19.8, pt getting weekly paracentesis of 10-15L, pt with chronic wound on ventral hernia, elevated LFTs and alk phos, cachexia. Interventions: 1. Per hepatic disease, recc small, frequent high protein meals with ONS use throughout the night to reduce any periods of fasting. 2. Sending ONS Calin bid while hospitalized and ONS on dinner tray for use overnight. Monitoring/Evaluations: POs, ONS tolerance Electronically Signed by: Kavita Johnson 06/24/23 09:50 Clinical Dietitian [address] [id number]
--- NOTE | 2023-06-24 13:06 | PC.NURSE ---
Addendum entered by Calista Cazares R.N. 06/24/23 17:46: Pt up to use BSC, abdominal wound leaked a profound amount of serosanguinous fluid. Dressing thus saturated and replaced with foam dressings/abd pads. Dr. Maradiaga aware, ok to change dressing when soiled. Dr. Talbot also updated. Addendum entered by Calista Cazares R.N. 06/24/23 15:53: Patient back to room from surgery at 1455. Alert and oriented x3. Denies pain. Abdominal binder in place, dressing underneath binder is C/D/I at this time. Tolerated ice chips and sorbet without issue. 2nd unit of blood transfusing at this time. Original Note: Patient down to surgery at this time. 1 out of 2 units of blood transfused.
[2023-06-24] MEDS: LACTATED RINGERS 1,000 ML 42 ML IV (13:18)
[2023-06-24] MEDS: PIPERACILLIN/TAZO 3.375 GM in SODIUM CHLORIDE 0.9% 100 ML IV (13:47)
[2023-06-24] MEDS: BUPIVACAINE 0.25% (PF) 30 ML, EPINEPHrine 0.15 MG INJ (13:50)
--- NOTE | 2023-06-24 14:16 | SUR.OPER ---
Supine on padded OR bed, head on pillow, arms secured on padded arm boards at <90 degrees abduction, legs uncrossed, safety belt at thigh, tape over blanket over lower legs.
--- NOTE | 2023-06-24 14:17 | PM.PN.1 ---
Subjective Subjective Interval history: Awaiting surgery today. No complaints. Exam Vital Signs (past 8 hours): - 06/24/23 06:30 06/24/23 07:00 06/24/23 07:30 Temperature Pulse Rate 100 H 107 H 101 H Respiratory Rate 11 L 16 14 Blood Pressure Pulse Oximetry Oxygen Flow Rate 06/24/23 08:00 06/24/23 08:04 06/24/23 08:04 Temperature Pulse Rate 98 H 99 H Respiratory Rate 17 18 Blood Pressure 97/57 L Pulse Oximetry 98 Oxygen Flow Rate 06/24/23 08:09 06/24/23 08:30 06/24/23 09:00 Temperature 98.7 F Pulse Rate 99 H 107 H 95 H Respiratory Rate 40 H 65 H 14 Blood Pressure 97/57 L Pulse Oximetry 98 Oxygen Flow Rate 0 06/24/23 09:30 06/24/23 10:00 06/24/23 10:27 Temperature Pulse Rate 95 H 93 H Respiratory Rate 17 10 L Blood Pressure 100/64 Pulse Oximetry Oxygen Flow Rate 06/24/23 10:27 06/24/23 10:30 06/24/23 10:39 Temperature 98.9 F Pulse Rate 105 H 101 H 101 H Respiratory Rate 24 22 21 Blood Pressure 100/64 Pulse Oximetry Oxygen Flow Rate 06/24/23 10:54 06/24/23 11:00 06/24/23 11:02 Temperature 98.8 F Pulse Rate 98 H 103 H Respiratory Rate 20 19 Blood Pressure 100/62 100/62 Pulse Oximetry Oxygen Flow Rate 06/24/23 11:02 06/24/23 11:30 06/24/23 12:00 Temperature Pulse Rate 98 H 115 H 91 H Respiratory Rate 20 41 H 22 Blood Pressure Pulse Oximetry Oxygen Flow Rate 06/24/23 12:30 06/24/23 12:57 Temperature 98.9 F Pulse Rate 92 H 96 H Respiratory Rate 21 20 Blood Pressure 100/69 Pulse Oximetry Oxygen Flow Rate Oxygen Delivery Method Room Air Oxygen Flow Rate 0 Narrative Exam Narrative: Abdomen is soft There is a large ventral hernia There is an open skin wound and a translucent thin layer of tissue through which loops of bowel are visible There is no ascites draining from the wound Objective Labs 06/24/23 04:21 06/24/23 04:21 Labs: Laboratory Results - last 24 hr 06/23/23 06/23/2323 13:48 13:51 14:40 WBC RBC Hgb Hct MCV MCH MCHC RDW Plt Count Neut % (Auto) Lymph % (Auto) [place] % (Auto) Eos % (Auto) Baso % (Auto) Neut # (Auto) Lymph # (Auto) [place] # (Auto) Eos # (Auto) Baso # (Auto) RBC Morphology PT 15.0 H INR 1.3 Sodium 127 L Potassium 4.8 Chloride 99 Carbon Dioxide 16 L BUN 47 H Creatinine 1.46 H Estimated GFR 43 L BUN/Creatinine Ratio 32.2 H Glucose 133 H Calcium 9.2 Magnesium 2.1 Total Bilirubin 0.7 AST 48 H ALT 32 Alkaline Phosphatase 146 H Total Protein 6.8 Albumin 3.7 Globulin 3.1 Albumin/Globulin Ratio 1.2 Nasal Screen MRSA (PCR) Not detected Blood Type Antibody Screen Crossmatch 06/24/23 06/24/23 04:21 09:40 WBC 5.0 RBC 2.28 L Hgb 6.9 L* Hct 20.3 L* MCV 89.1 MCH 30.4 MCHC 34.1 RDW 17.8 H Plt Count 245 Neut % (Auto) 80.5 H Lymph % (Auto) 4.0 L [place] % (Auto) 13.1 Eos % (Auto) 1.6 L Baso % (Auto) 0.8 Neut # (Auto) 4000 Lymph # (Auto) 200 L [place] # (Auto) 700 Eos # (Auto) 100 Baso # (Auto) 0 RBC Morphology Normal morphology PT 17.5 H INR 1.5 H Sodium 126 L Potassium 4.4 Chloride 98 Carbon Dioxide 15 L BUN 39 H Creatinine 1.14 H Estimated GFR 57 L BUN/Creatinine Ratio 34.2 H Glucose 105 H Calcium 9.4 Magnesium Total Bilirubin 0.7 AST 39 H ALT 29 Alkaline Phosphatase 143 H Total Protein 6.6 Albumin 3.8 Globulin 2.8 Albumin/Globulin Ratio 1.4 Nasal Screen MRSA (PCR) Blood Type A Negative Antibody Screen Negative Crossmatch See Detail [facility] Medical History Abnormal TSH Ascites (01/2020) Chicken pox Chronic left hip pain (2014) Cirrhosis Eczema Elevated blood protein Esophageal varices without bleeding (01/2020) ETOH abuse (2009) Hypokalemia Hyponatremia Insomnia Iron deficiency anemia Liver disease Mid back pain, chronic (1999) Monoclonal gammopathy Rib injury Screening for malignant neoplasm of colon Superior mesenteric vein thrombosis Surgical History Anesthesia History of back surgery Social History household members: friend(s) Smoking Status: Current every day smoker Tobacco: How many years used: 35 quit status: not considering quitting second hand exposure: Yes (work) alcohol intake: never substance use type: does not use Assessment & Plan Assessment & Plan narrative: # large bowel-containing ventral hernia with ulcer causing abdominal wall defect -gen surg consulted and will take to OR on 06/24, risk of bowel herniation through ulcer is high -NPO for surgery today at 4pm -patient understands she may during surgery and is ok with that # ESLD with large volume ascites -gets weekly skyler of 12-15L -performed bedside para of 8.6L and 50g albumin given -continue lasix, aldactone and lactulose # insomnia -continue trazodone PRN # Severe Chronic Malnutrition r/t hypermetabolism in end stage liver disease aeb BMI 19.8, pt getting weekly paracentesis of 10-15L, pt with chronic wound on ventral hernia, elevated LFTs and alk phos, cachexia. Code status is DNR. DVT prophylaxis with SCDs. Proxy is mother Tigist. I have reviewed home meds and used all available resources to reconcile the home meds. Dispo: Pending surgery today. Quality VTE Deep Vein Thrombosis/Pulmonary Embolism Present on Admission: No
--- NOTE | 2023-06-24 14:19 | P.OP_ITS ---
Operative Date/Time/Diagnoses Date of procedure: 06/24/23 Time of procedure: 14:19 Pre-op diagnosis: Ventral hernia Post-op diagnosis: same Procedure & Clinicians Procedure: Open ventral hernia repair Same procedure as scheduled: Yes Indications: 53 y.o woman with end stage liver disease who has bowel erroding through the skin of the umbilicus. Surgeon: Johnathan Maradiaga Predatory Animal Hunter: Drew Silver Click Yes if Unassisted: Yes Anesthesia Type: General Operative Notes Findings: Viable bowel within ventral hernia Specimen(s): none sent Estimated Blood Loss (mL): 20 Procedure in detail: Patient was brought to the operating room placed supine on the table . Bilateral lower extremity compression devices were applied. She received Zosyn. Time out performed. Prepped and draped in sterile fashion. We made an elipical incision around the ulcerated skin. The abdomen was entered. Bowel was viable. She has a 15cm ventral hernia defect with a significant loss of abdominal domain. It would not be possible to close the fascia. Instead the skin was closed in interrupted fashion with nylon suture. She emerged from ansesthesia and was transferred to recovery in stable condition. Complications: none Post-operative Condition: stable Disposition: Acute Care Plan for aftercare: The wound will leak a significant amount of fluid/ascities. Minimize with frequent paracentesis.
[2023-06-25] VITALS (7 sets, daily range): BP systolic 99–104; BP diastolic 56–72; PULSE 96–107; RESP 16–20; TEMP 36.6–37.2; O2SAT 88–100
[2023-06-25 04:57] LABS: INR 1.5 (0.9-1.3); Prothrombin Time 16.8 SECONDS (10.1-12.7)
[2023-06-25 05:04] LABS: Add Manual Diff / Slide Review NO; Basophils Absolute Auto 100 /uL (0-100); Eosinophils Absolute Auto 100 /uL (0-450); Eosinophils Percent Auto 1.7 % (2-4); Lymphocytes Absolute Auto 200 /uL (1100-4500); Mean Corpuscular HGB Conc 34.8 % (30-36); Mean Corpuscular Hemoglobin 30.2 PG (26-34); Mean Corpuscular Volume 86.9 fL (80-100); Monocytes Absolute Auto 700 /uL (0-900); Monocytes Percent Auto 11.3 % (3-14); Neutrophils Absolute Auto 5100 /uL (1500-7000); Platelet Count 224 X10^3/uL (150-400); Red Blood Cell Count 2.98 X10^6/uL (4.0-5.2); White Blood Cell Count 6.2 X10^3/uL (4.5-11.0)
[2023-06-25 05:05] LABS: Hematocrit 25.9 % (36-46)
[2023-06-25 05:39] LABS: Alanine Aminotransferase 27 IU/L (<35); Albumin 3.5 g/dL (3.5-5.0); Albumin Globulin Ratio 1.2 (1.0-2.8); Alkaline Phosphatase 131 U/L (38-126); Aspartate Aminotransferase 35 IU/L (14-36); BUN Creatinine Ratio 32.7 (6-22); Bilirubin Total 1.6 mg/dL (0.2-1.3); Blood Urea Nitrogen 34 mg/dL (7-17); Calcium 9.1 mg/dL (8.4-10.2); Carbon Dioxide 18 mmol/L (22-32); Chloride 96 mmol/L (98-107); Estimated Glomerular Filt Rate > 60 mL/min (>60); Globulin 2.9 g/dL (1.7-4.1); Glucose 139 mg/dL (70-100); HEMOLYSIS < 15 (0-50); Potassium 4.4 mmol/L (3.4-5.1); Sodium 123 mmol/L (137-145); Total Protein 6.4 g/dL (6.3-8.2)
[2023-06-25] MEDS: PANTOPRAZOLE DR 40 MG TABLET PO (06:05)
[2023-06-25] MEDS: FUROSEMIDE 40 MG TABLET 80 MG PO (08:47)
[2023-06-25] MEDS: LACTULOSE 20 GM/30 ML SOLUTION PO (08:47)
[2023-06-25] MEDS: SPIRONOLACTONE 25 MG TABLET 200 MG PO (08:48)
[2023-06-25] MEDS: LIDOCAINE PATCH 1 EACH ADH..PATCH TOP (08:48)
[2023-06-25] MEDS: MAGNESIUM OXIDE 400 MG TABLET PO (08:48)
[2023-06-25] MEDS: SODIUM CHLORIDE 0.9% FLUSH 10 ML IV (09:15)
--- NOTE | 2023-06-25 11:33 | CM.DANOTE ---
Reviewed EMR and team rounds for pt's status and anticipated d/c needs. Met with pt at bedside to introduce self and role. Pt found to be alert, oriented, appearing very uncomfortable. She has completed her surgery for wound removal and repair yesterday. Payor: A/Healthcare Management PCP: Stacy Mittal Surgeon: Dr. Zepeda Pt is a 53 year-old F admitted by Dr. Zepeda for closure of a herniated wound and paracentesis QOD while inpt. She also gets weekly paracentesis of up to 12-15L taken off, this has cont. while inpt. She also has en-stage liver disease due to NICOL/alcohol, ascites, MGUS, and cachexia. She resides alone in her own home, states having family to assist her as needed. Otherwise, she drives herself to weekly paracentesis, is independent with her own care needs. and declines any needs for resources or in-home supports at this time. Will clarify w/her who will transport her home as we get closer to d/c. No further dcp needs identified at this time. Discharge Planning/Care Management CM Discharge Assessment Start: 06/25/23 11:26 Freq: Status: Active Protocol: Document 06/25/23 11:27 DPL (Rec: 06/25/23 11:31 DPL [id number]) Discharge Planning Assessment Assigned Professor Of Management VANDANA Bey Advance Directives? No History Provided By Patient Has Patient been admitted in last 30 No days? Prior Living Arrangements House Household Members friend(s) Type of transporation used prior to Drives own vehicle admit Independent with ADL's Yes Is patient alert and oriented? Yes Comment N/A Caregiver for Another No Community Services used prior to Wound Care admission: Comment Pt has been getting weekly paracentesis, drives herself. She denies the need for cg assistance, however her niece can assist as needed. Comment Pt will resume paracentesis, PCP to monitor OP cont. woundcare needs. Barriers to Discharge No Discharge Plan Home Community Services Wound Care Referrals Initiated None needed Whiteboard Updated in Patient Room with Yes name and ext. # of Professor Of Management Review Status In Process Please Provide Date Initial DC 06/25/23 Assessment Was Performed
--- NOTE | 2023-06-25 12:08 | CM.DPC ---
DCP Cont. Pt will most likely d/c later today, per Hospitalist report. Met with pt at bedside to discuss d/c needs. She states that her parents will transport her home. No further d/c needs identified at this time.
[2023-06-25] MEDS: IBUPROFEN 400 MG TABLET PO (13:33)
--- NOTE | 2023-06-25 13:51 | P.DS_ITS ---
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 Dr. Zepeda gen surg requested admit to take to OR for closure of the herniated wound and paracentesis qod while admitted. Patient states she has dealt with this wound for quite awhile and is very frustrated that nobody will help her take care of it. She is thankful Dr. Zepeda is willing to. She gets weekly paracentesis of up to 12-15L taken off. Her last para was thursday 5 days ago. She denies CP, SBO, abd pain or diarrhea. Discharge Providers Provider Date of admission: 06/23/23 12:47 Discharge Date: 06/25/23 Primary care physician: Stacy Mittal MD Consults: 06/23/23 13:08 Consult to General Surgery Routine Comment: Consulting Provider: Kody Zepeda Reason for consultation: wound with ventral abd wall defect Has provider been notified: Yes 06/23/23 14:33 Consult to Dietitian, Adult Routine Comment: Reason For Exam: assessed at high risk Discharge provider: Steve Paige DO Summary Hospital Course Discharge Diagnosis: # large bowel-containing ventral hernia with ulcer causing abdominal wall defect # ESLD with large volume ascites # insomnia # Severe Chronic Malnutrition r/t hypermetabolism in end stage liver disease aeb BMI 19.8, pt getting weekly paracentesis of 10-15L, pt with chronic wound on ventral hernia, elevated LFTs and alk phos, cachexia. Hospital Course: This is a 53 year old female who was admitted for repair of a large ventral hernia with ulceration. She has a history of ESLD with large volume ascites with frequent paracenteses. Prior to surgery she had 8L removed by the hospitalist service with 50g of albumin given. She continued to drain slowly after surgery through her incisions, but her pain was controlled and she was hemodynamically stable without any encephlalopathy or signs of infection. She had no shortness of breath or further indications for acute drainage. She was discharged home with plan for outpatient follow up with general surgery. She should continue previous schedule with outpatient paracentesis for volume management, along with continued oral diuretics. Time Spent with Patient Time spent: Greater than 30 minutes Exam Vital Signs (past 8 hours): - 06/25/23 07:00 06/25/23 08:00 06/25/23 12:45 Temperature 98.6 F 97.8 F Pulse Rate 99 H 96 H Respiratory Rate 18 18 Blood Pressure 103/72 104/58 L Pulse Oximetry 100 100 Oxygen Delivery Method Room Air Oxygen Flow Rate 0 0 Oxygen Delivery Method Room Air Oxygen Flow Rate 0 Narrative Exam Narrative: Gen: chronically ill appearing female, in no acute distress. Abdomen is soft, dressings soaked with serosanguinous ascites fluid. CV: RRR no m/r/g Pulm: bibasilar rales, mild, with no wheezing. Ext: trace edema. Objective Labs 06/25/23 04:04 06/25/23 04:04 Labs: Laboratory Results - last 24 hr 06/24/23 06/25/23 09:40 04:04 WBC 6.2 RBC 2.98 L Hgb 9.0 L Hct 25.9 L MCV 86.9 MCH 30.2 MCHC 34.8 RDW 17.0 H Plt Count 224 Neut % (Auto) 82.0 H Lymph % (Auto) 4.0 L [place] % (Auto) 11.3 Eos % (Auto) 1.7 L Baso % (Auto) 1.0 Neut # (Auto) 5100 Lymph # (Auto) 200 L [place] # (Auto) 700 Eos # (Auto) 100 Baso # (Auto) 100 PT 16.8 H INR 1.5 H Sodium 123 L Potassium 4.4 Chloride 96 L Carbon Dioxide 18 L BUN 34 H Creatinine 1.04 Estimated GFR > 60 BUN/Creatinine Ratio 32.7 H Glucose 139 H Calcium 9.1 Total Bilirubin 1.6 H AST 35 ALT 27 Alkaline Phosphatase 131 H Total Protein 6.4 Albumin 3.5 Globulin 2.9 Albumin/Globulin Ratio 1.2 Blood Type A Negative Antibody Screen Negative Crossmatch See Detail [facility] Medical History Abnormal TSH Ascites (01/2020) Chicken pox Chronic left hip pain (2014) Cirrhosis Eczema Elevated blood protein Esophageal varices without bleeding (01/2020) ETOH abuse (2009) Hypokalemia Hyponatremia Insomnia Iron deficiency anemia Liver disease Mid back pain, chronic (1999) Monoclonal gammopathy Rib injury Screening for malignant neoplasm of colon Superior mesenteric vein thrombosis Surgical History Anesthesia History of back surgery Social History household members: friend(s) Smoking Status: Current every day smoker Tobacco: How many years used: 35 quit status: not considering quitting second hand exposure: Yes (work) alcohol intake: never substance use type: does not use Discharge Plan Discharge Plan Patient Disposition: Home Provider Discharge Comment: You were admitted to the hospital for repair of a hernia. Please follow up with general surgery. Continue previous paracentesis schedule. Discharge orders & Medications Prescriptions: Continued magnesium 200 mg tablet 400 mg PO DAILY ferrous gluconate 324 mg (38 mg iron) tablet 324 mg PO .QOD furosemide 40 mg tablet 80 mg PO BID Qty: 90 3RF spironolactone 100 mg tablet 200 mg PO BID trazodone 50 mg tablet 50 mg PO BEDTIME PRN (Reason: insomnia) Qty: 30 3RF lidocaine 5 % adhesive patch,medicated 1 patch topical DAILY Qty: 30 2RF Rx Instructions: leave on most painful area for up to 12 hrs calcium carbonate-vitamin D3 [Calcium 600 with Vitamin D3] 600 mg(1,500mg) - 500 unit capsule 1 cap PO DAILY multivitamin with minerals [Hair,Skin and Nails] Tablet 1 tab PO DAILY lactulose 10 gram/15 mL solution 30 ml PO DAILY omeprazole 40 mg capsule,delayed release(DR/EC) 40 mg PO DAILY potassium chloride 20 mEq tablet extended release 20 meq PO DAILY Medication counseling provided by Pharmacist: Yes Follow up/Referrals: Stacy Mittal MD [Primary Care Provider] - Visit Report/Discharge Packet Stand Alone Forms: Patient Portal/API, Stroke Signs & Symptoms Discharge Data Primary Care Provider: Stacy Mittal Discharges patient from system. Discharge Date/Time: 06/25/23 16:10 Quality VTE Deep Vein Thrombosis/Pulmonary Embolism Present on Admission: No
== END 2023-06-25 16:10 | disposition home or self-care (01) | DRG 227 ==
PROVIDERS: Surgery; Admitting Provider Student in an Organized Health Care Education/Training Program; PCP Student in an Organized Health Care Education/Training Program; Referring Provider Student in an Organized Health Care Education/Training Program; Visit Provider Student in an Organized Health Care Education/Training Program
PROC: 0WQF0ZZ Repair Abdominal Wall, Open Approach (ICD-10-PCS; principal; 2023-06-24 16:15)
DX: K43.9 Ventral hernia without obstruction or gangrene (principal); E43 Unspecified severe protein-calorie malnutrition; F17.210 Nicotine dependence, cigarettes, uncomplicated; K72.10 Chronic hepatic failure without coma; K70.31 Alcoholic cirrhosis of liver with ascites; G47.00 Insomnia, unspecified; R18.8 Other ascites; D50.9 Iron deficiency anemia, unspecified; L98.499 Non-pressure chronic ulcer of skin of other sites with unspecified severity; L89.93 Pressure ulcer of unspecified site, stage 3; Z66 Do not resuscitate; Z68.1 Body mass index [BMI] 19.9 or less, adult
CPT/HCPCS: 36415; 36430; 49595; 80053; 83735; 85025; 85610; 86850; 86900; 86901; 87797; 97597; 99233; P9016; J0171; J0330; J2250; J2543; J2704; J3010; J3490; P9041

== ENCOUNTER 2023-07-01 14:09 | Emergency (ER) | payer OTHER, SELFPAY ==
[2023-06-23 14:18] VITALS: BMI 19.8
[2023-07-01] VITALS (13 sets, daily range): BP systolic 98–111; BP diastolic 50–84; PULSE 97–110; RESP 16–46; TEMP 36.9; O2SAT 96–100; BMI 19.8
--- NOTE | 2023-07-01 15:08 | DI.RAD.S_ITS ---
PROCEDURE: XR CHEST 1V INDICATIONS: suspected sepsis TECHNIQUE: One view of the chest was acquired. COMPARISON: [facility], CR, XR CHEST 1V, 04/17/2023, 21:17. FINDINGS: Surgical changes and devices: ACDF. Lungs and pleura: Lungs are clear. No pleural effusions or pneumothorax. Mediastinum: Mediastinal contours appear normal. Heart size is normal. Bones and chest wall: No suspicious bony lesions. Overlying soft tissues appear unremarkable. IMPRESSION: Portable chest within normal limits for age. Dictated by: Kris Andrea M.D. on 07/01/2023 at 15:29 Approved by: Kris Andrea M.D. on 07/01/2023 at 15:29
[2023-07-01 15:15] LABS: INR 1.3 (0.9-1.3); Prothrombin Time 14.6 SECONDS (10.1-12.7)
[2023-07-01 15:16] LABS: Add Manual Diff / Slide Review NO; Basophils Absolute Auto 0 /uL (0-100); Basophils Percent Auto 0.4 % (0-2); Eosinophils Absolute Auto 100 /uL (0-450); Eosinophils Percent Auto 0.8 % (2-4); Hematocrit 32.2 % (36-46); Lymphocytes Absolute Auto 200 /uL (1100-4500); Lymphocytes Percent Auto 3.7 % (25-40); Mean Corpuscular HGB Conc 34.1 % (30-36); Mean Corpuscular Hemoglobin 30.7 PG (26-34); Mean Corpuscular Volume 89.9 fL (80-100); Monocytes Absolute Auto 300 /uL (0-900); Monocytes Percent Auto 4.5 % (3-14); Neutrophils Absolute Auto 5900 /uL (1500-7000); Neutrophils Percent Auto 90.6 % (50-75); Platelet Count 301 X10^3/uL (150-400); Red Blood Cell Count 3.58 X10^6/uL (4.0-5.2); Red Cell Distribution Width 17.5 % (11.6-14.8); White Blood Cell Count 6.6 X10^3/uL (4.5-11.0)
[2023-07-01 15:18] LABS: PTT Partial Thromboplastin Tim 31 SECONDS (26-36)
[2023-07-01 15:19] LABS: Lactate (Lactic Acid) 3.7 mmol/L (0.7-2.1)
[2023-07-01] MEDS: SODIUM CHLORIDE 0.9% 1,000 ML 1000 ML IV (15:24)
[2023-07-01 15:28] LABS: Alanine Aminotransferase 47 IU/L (<35); Albumin 4.1 g/dL (3.5-5.0); Albumin Globulin Ratio 1.1 (1.0-2.8); Alkaline Phosphatase 193 U/L (38-126); Aspartate Aminotransferase 67 IU/L (14-36); BUN Creatinine Ratio 26.4 (6-22); Bilirubin Total 1.6 mg/dL (0.2-1.3); Blood Urea Nitrogen 34 mg/dL (7-17); Calcium 9.7 mg/dL (8.4-10.2); Carbon Dioxide 18 mmol/L (22-32); Chloride 90 mmol/L (98-107); Estimated Glomerular Filt Rate 49 mL/min (>60); Globulin 3.7 g/dL (1.7-4.1); Glucose 127 mg/dL (70-100); HEMOLYSIS < 15 (0-50); Lipase 324 U/L (23-300); Potassium 4.7 mmol/L (3.4-5.1); Sodium 122 mmol/L (137-145); Total Protein 7.8 g/dL (6.3-8.2)
--- NOTE | 2023-07-01 15:33 | DI.CT.S_ITS ---
PROCEDURE: CT ABDOMEN PELVIS W CON INDICATIONS: Surgical wound pain TECHNIQUE: After the administration of intravenous contrast, axial sections acquired from the lung bases to the pubic symphysis. Coronal and sagittal reformats were performed. For radiation dose reduction, the following was used: automated exposure control, adjustment of mA and/or kV according to patient size. COMPARISON: [facility], CT, CT CHEST ABD PEL W CON, 06/06/2023, 18:29. [facility], CT, CT ABDOMEN PELVIS W CON, 04/17/2023, 21:51. FINDINGS: Image quality: Excellent. Lung bases: Moderate hiatal hernia. Heart: No significant findings. ABDOMEN: Liver: Cirrhosis. Stable nonocclusive thrombus within the extrahepatic portal vein. Gallbladder: Diffuse wall thickening. Biliary ducts: Unremarkable. Pancreas: Unremarkable. Spleen: Mildly enlarged. Adrenal Glands: Unremarkable. Kidneys and Ureters: Unremarkable. Stomach and Bowel: Stomach, small bowel loops, and colon are unremarkable. Peritoneum: Small volume ascites. Ventral Wall: Wide-mouth, ventral hernia containing nonobstructed small and large bowel. There is a small outpouching of fat along the outer surface of the defect, measuring approximately 2.0 x 1.1 cm (series 2, image 55). Abdominal Nodes: No retroperitoneal or mesenteric adenopathy by size criteria. Vessels: Aorta and inferior vena cava are normal in size. Portosystemic collaterals. PELVIS: Pelvic Organs: Unremarkable. Bladder: Unremarkable. Pelvic Nodes: No enlarged lymph nodes. Miscellaneous: No hernias are seen. Bones: Stable concave compression deformities of the thoracolumbar spine. IMPRESSION: Large ventral hernia containing fat and nonobstructed small bowel. Focus of herniated fat extending along the anterior surface of the hernia sac measuring approximately 2.0 x 1.1 cm, probably corresponding to the reported large growth. Cirrhosis with portal hypertension. Stable nonocclusive thrombus of the main portal vein. Other chronic findings as above. Dictated by: Kris Andrea M.D. on 07/01/2023 at 15:53 Approved by: Kris Andrea M.D. on 07/01/2023 at 15:57
[2023-07-01 15:42] LABS: Procalcitonin 0.24 ng/mL (<0.5)
[2023-07-01] MEDS: ONDANSETRON 4 MG/2 ML INJ IV (15:51)
[2023-07-01] MEDS: MORPHINE 4 MG/ML INJ IV (15:51)
--- NOTE | 2023-07-01 16:01 | ED.WOUNDLAC ---
HPI - Wound/Laceration <El Guzman MD - Last Filed: 07/07/23 08:33> General Chief Complaint: Wound/Laceration Stated Complaint: Growth On Surgery Scar Noticed it Last night Time Seen by Provider: 07/01/23 14:47 Source: patient Mode of arrival: Ambulatory History of Present Illness HPI narrative: Patient is postop day 7 status post ventral hernia repair. Patient has extensive history of liver failure and cirrhosis and ascites. Patient states last night she felt bulging at her ventral hernia repair site with tissue going through the stitches. No fever chills. No nausea or vomiting. Wound is clean but there is tissue extruding from the stitches Related Data Home Medications Medication Instructions Recorded Confirmed calcium carbonate 600 mg-vitamin 1 cap PO DAILY 03/08/20 06/23/23 D3 12.5 mcg (500 unit) capsule (Calcium 600 with Vitamin D3) multivitamin with minerals 1 tab PO DAILY 03/08/20 06/23/23 (Hair,Skin and Nails tablet) lactulose 10 gram/15 mL oral 30 ml PO DAILY 10/10/21 06/23/23 solution omeprazole 40 mg capsule,delayed 40 mg PO DAILY 06/06/23 06/23/23 release ferrous gluconate 324 mg (38 mg 324 mg PO .QOD 06/16/23 06/23/23 iron) tablet magnesium 200 mg tablet 400 mg PO DAILY 06/16/23 06/23/23 potassium chloride 20 mEq 20 meq PO DAILY 06/16/23 06/23/23 tablet,extended release spironolactone 100 mg tablet 200 mg PO BID 06/16/23 06/23/23 Previous Rx's Medication Instructions Recorded furosemide 40 mg tablet 80 mg (2 x 40 mg) PO BID #90 tabs 06/16/23 lidocaine 5 % topical patch 1 patch topical DAILY #30 ea 06/16/23 trazodone 50 mg tablet 50 mg PO BEDTIME PRN insomnia #30 06/16/23 tabs Allergies Allergy/AdvReac Type Severity Reaction Status Date / Time losartan AdvReac Intermediate Feels Verified 06/16/23 14:44 dopey, spaced out, sore throat, runny nose. lisinopril AdvReac Mild cough Verified 06/16/23 14:44 Review of Systems <El Guzman MD - Last Filed: 07/07/23 08:33> Review of Systems Narrative: GENERAL: negative chills, fatigue, malaise, fever, sweats. HEENT: negative sinus pain, ear pain, sore throat RESPIRATORY: negative dyspnea, cough CARDIOVASCULAR: negative chest pain, palpitations GASTROINTESTINAL: negative nausea, vomiting, positive abdominal pain : negative dysuria, frequency, hematuria MUSCULOSKELETAL: negative muscle or bony pain SKIN: negative rash, skin lesions NEUROLOGIC: negative weakness, numbness ROS Unobtainable: All systems reviewed & are unremarkable except as noted in HPI and below Patient History <El Guzman MD - Last Filed: 07/07/23 08:33> Medical History Superior mesenteric vein thrombosis Hypokalemia Monoclonal gammopathy Hyponatremia Cirrhosis Rib injury Insomnia Elevated blood protein Chronic left hip pain (2014) Iron deficiency anemia Eczema Mid back pain, chronic (1999) Screening for malignant neoplasm of colon Abnormal TSH Liver disease Esophageal varices without bleeding (01/2020) Ascites (01/2020) ETOH abuse (2009) Chicken pox Surgical History Anesthesia History of back surgery Social History household members: friend(s) Smoking Status: Current every day smoker Tobacco: How many years used: 35 quit status: not considering quitting second hand exposure: Yes (work) alcohol intake: never substance use type: does not use Smoking Status: Current every day smoker tobacco type: cigarettes alcohol intake frequency: other Alcohol type: hard liquor Substance Use Type: does not use Exam <El Guzman MD - Last Filed: 07/07/23 08:33> Narrative Exam Narrative: GENERAL: in no distress, not toxic not dyspneic HEAD: Normocephalic. EYES: Pupils equal round ENT: Mucous membranes moist. NECK: Trachea midline. CARDIOVASCULAR: Regular rate and rhythm RESPIRATORY: Clear to auscultation. Breath sounds equal bilaterally. No wheezes, rales, or rhonchi. GASTROINTESTINAL: Abdomen soft, there is palpable reducible hernia at the ventral hernia surgical site. At the superior portion of the suturing there is fat content dehiscing between the stitches. At the inferior portion appears to have omental material extruding, the size is about 1 x 2 cm in tissue amount. EXTREMITIES: No gross deformities. BACK: No flank tenderness. NEURO: AOx4. SKIN: Warm and dry PSYCH: Not anxious, is cooperative Initial Vital Signs Initial Vital Signs: Vital Signs Temperature 98.5 F 07/01/23 14:15 Pulse Rate 99 H 07/01/23 14:15 Respiratory Rate 18 07/01/23 14:15 Blood Pressure 98/56 L 07/01/23 14:15 Pulse Oximetry 100 07/01/23 14:15 Oxygen Delivery Method Room Air 07/01/23 14:15 <Umang Acuña DO - Last Filed: 07/02/23 01:30> Initial Vital Signs Initial Vital Signs: Vital Signs Temperature 98.5 F 07/01/23 14:15 Pulse Rate 99 H 07/01/23 14:15 Respiratory Rate 18 07/01/23 14:15 Blood Pressure 98/56 L 07/01/23 14:15 Pulse Oximetry 100 07/01/23 14:15 Oxygen Delivery Method Room Air 07/01/23 14:15 Course <El Guzman MD - Last Filed: 07/07/23 08:33> Orders Ordered: Discontinued Medications Sodium Chloride (Normal Saline 0.9%) 1,000 mls @ 1,000 mls/hr IV BOLUS ONE Stop: 07/01/23 16:07 Last Infusion: 07/01/23 16:44 Dose: Infused Documented By: Admin: 07/01/23 15:24 Dose: 1,000 mls/hr Documented By: ROXANNA Morphine Sulfate (Morphine 4 Mg/Ml Inj) 4 mg IV NOW ONE Stop: 07/01/23 15:29 Last Admin: 07/01/23 15:51 Dose: 4 mg Documented By: ROXANNA Ondansetron HCl (Ondansetron 4 Mg/2 Ml Inj) 4 mg IV NOW PRN PRN Reason: Nausea And Vomiting Ondansetron HCl (Ondansetron 4 Mg Odt) 4 mg SL NOW PRN PRN Reason: Nausea And Vomiting Ondansetron HCl (Ondansetron 4 Mg/2 Ml Inj) 4 mg IV NOW ONE Stop: 07/01/23 15:29 Last Admin: 07/01/23 15:51 Dose: 4 mg Documented By: CTS Vital Signs Vital signs: Vital Signs - 8 hr 07/01/23 17:30 07/01/23 17:31 07/01/23 17:31 Pulse Rate 110 H Respiratory Rate 16 22 Blood Pressure 100/50 L Pulse Oximetry 96 Oxygen Delivery Method Room Air 07/01/23 18:00 07/01/23 18:01 07/01/23 18:01 Pulse Rate 105 H 108 H Respiratory Rate 17 20 Blood Pressure 111/72 Pulse Oximetry 100 100 Oxygen Delivery Method 07/01/23 18:30 07/01/23 18:30 07/01/23 19:00 Pulse Rate 98 H Respiratory Rate 18 Blood Pressure 98/56 L 98/53 L Pulse Oximetry 100 Oxygen Delivery Method 07/01/23 19:00 07/01/23 19:31 Pulse Rate 105 H 101 H Respiratory Rate 20 24 Blood Pressure 106/59 L Pulse Oximetry 97 99 Oxygen Delivery Method Room Air <Umang Acuña DO - Last Filed: 07/02/23 01:30> Orders Ordered: Discontinued Medications Sodium Chloride (Normal Saline 0.9%) 1,000 mls @ 1,000 mls/hr IV BOLUS ONE Stop: 07/01/23 16:07 Last Infusion: 07/01/23 16:44 Dose: Infused Documented By: Admin: 07/01/23 15:24 Dose: 1,000 mls/hr Documented By: ROXANNA Morphine Sulfate (Morphine 4 Mg/Ml Inj) 4 mg IV NOW ONE Stop: 07/01/23 15:29 Last Admin: 07/01/23 15:51 Dose: 4 mg Documented By: ROXANNA Ondansetron HCl (Ondansetron 4 Mg/2 Ml Inj) 4 mg IV NOW PRN PRN Reason: Nausea And Vomiting Ondansetron HCl (Ondansetron 4 Mg Odt) 4 mg SL NOW PRN PRN Reason: Nausea And Vomiting Ondansetron HCl (Ondansetron 4 Mg/2 Ml Inj) 4 mg IV NOW ONE Stop: 07/01/23 15:29 Last Admin: 07/01/23 15:51 Dose: 4 mg Documented By: ROXANNA Vital Signs Vital signs: Vital Signs - 8 hr 07/01/23 17:30 07/01/23 17:31 07/01/23 17:31 Pulse Rate 110 H Respiratory Rate 16 22 Blood Pressure 100/50 L Pulse Oximetry 96 Oxygen Delivery Method Room Air 07/01/23 18:00 07/01/23 18:01 07/01/23 18:01 Pulse Rate 105 H 108 H Respiratory Rate 17 20 Blood Pressure 111/72 Pulse Oximetry 100 100 Oxygen Delivery Method 07/01/23 18:30 07/01/23 18:30 07/01/23 19:00 Pulse Rate 98 H Respiratory Rate 18 Blood Pressure 98/56 L 98/53 L Pulse Oximetry 100 Oxygen Delivery Method 07/01/23 19:00 07/01/23 19:31 Pulse Rate 105 H 101 H Respiratory Rate 20 24 Blood Pressure 106/59 L Pulse Oximetry 97 99 Oxygen Delivery Method Room Air MDM - Wound/Laceration <El Guzman MD - Last Filed: 07/07/23 08:33> Lab Data 07/01/23 14:47 07/01/23 14:47 Labs: Lab Results 07/01/23 07/01/23 Range/Units 14:47 16:52 WBC 6.6 (4.5-11.0) X10^3/uL RBC 3.58 L (4.0-5.2) X10^6/uL Hgb 11.0 L (12.0-16.0) g/dL Hct 32.2 L (36-46) % MCV 89.9 D (80-100) fL MCH 30.7 (26-34) PG MCHC 34.1 (30-36) % RDW 17.5 H (11.6-14.8) % Plt Count 301 (150-400) X10^3/uL Neut % (Auto) 90.6 H (50-75) % Lymph % (Auto) 3.7 L (25-40) % [place] % (Auto) 4.5 (3-14) % Eos % (Auto) 0.8 L (2-4) % Baso % (Auto) 0.4 (0-2) % Neut # (Auto) 5900 (1313-0471) /uL Lymph # (Auto) 200 L (7356-3786) /uL [place] # (Auto) 300 (0-900) /uL Eos # (Auto) 100 (0-450) /uL Baso # (Auto) 0 (0-100) /uL PT 14.6 H (10.1-12.7) SECONDS INR 1.3 (0.9-1.3) APTT 31 (26-36) SECONDS Sodium 122 L (137-145) mmol/L Potassium 4.7 (3.4-5.1) mmol/L Chloride 90 L (98-107) mmol/L Carbon Dioxide 18 L (22-32) mmol/L BUN 34 H (7-17) mg/dL Creatinine 1.29 H (0.52-1.04) mg/dL Estimated GFR 49 L (>60) mL/min BUN/Creatinine Ratio 26.4 H (6-22) Glucose 127 H (70-100) mg/dL Lactate 3.7 H 2.1 (0.7-2.1) mmol/L Calcium 9.7 (8.4-10.2) mg/dL Total Bilirubin 1.6 H (0.2-1.3) mg/dL AST 67 H (14-36) IU/L ALT 47 H (<35) IU/L Alkaline Phosphatase 193 H (38-126) U/L Total Protein 7.8 (6.3-8.2) g/dL Albumin 4.1 (3.5-5.0) g/dL Globulin 3.7 (1.7-4.1) g/dL Albumin/Globulin Ratio 1.1 (1.0-2.8) Lipase 324 H (23-300) U/L Procalcitonin 0.24 (<0.5) ng/mL Imaging Data CT scan - abdomen/pelvis: Radiologist's Impression: [place] [address] CT Scan Report Signed Patient: Aleena Judge MR#: [id number] : 1970 Acct:[id number] Age/Sex: 53 / F Date of Service: 07/01/23 Loc: ED Accession Number: [id number] Procedure: CT abdomen pelvis w con Ordering Provider: El Guzman MD PROCEDURE: CT ABDOMEN PELVIS W CON INDICATIONS: Surgical wound pain TECHNIQUE: After the administration of intravenous contrast, axial sections acquired from the lung bases to the pubic symphysis. Coronal and sagittal reformats were performed. For radiation dose reduction, the following was used: automated exposure control, adjustment of mA and/or kV according to patient size. COMPARISON: [facility], CT, CT CHEST ABD PEL W CON, 06/06/2023, 18:29. [facility], CT, CT ABDOMEN PELVIS W CON, 04/17/2023, 21:51. FINDINGS: Image quality: Excellent. Lung bases: Moderate hiatal hernia. Heart: No significant findings. ABDOMEN: Liver: Cirrhosis. Stable nonocclusive thrombus within the extrahepatic portal vein. Gallbladder: Diffuse wall thickening. Biliary ducts: Unremarkable. Pancreas: Unremarkable. Spleen: Mildly enlarged. Adrenal Glands: Unremarkable. Kidneys and Ureters: Unremarkable. Stomach and Bowel: Stomach, small bowel loops, and colon are unremarkable. Peritoneum: Small volume ascites. Ventral Wall: Wide-mouth, ventral hernia containing nonobstructed small and large bowel. There is a small outpouching of fat along the outer surface of the defect, measuring approximately 2.0 x 1.1 cm (series 2, image 55). Abdominal Nodes: No retroperitoneal or mesenteric adenopathy by size criteria. Vessels: Aorta and inferior vena cava are normal in size. Portosystemic collaterals. PELVIS: Pelvic Organs: Unremarkable. Bladder: Unremarkable. Pelvic Nodes: No enlarged lymph nodes. Miscellaneous: No hernias are seen. Bones: Stable concave compression deformities of the thoracolumbar spine. IMPRESSION: Large ventral hernia containing fat and nonobstructed small bowel. Focus of herniated fat extending along the anterior surface of the hernia sac measuring approximately 2.0 x 1.1 cm, probably corresponding to the reported large growth. Cirrhosis with portal hypertension. Stable nonocclusive thrombus of the main portal vein. Other chronic findings as above. Dictated by: Kris Andrea M.D. on 07/01/2023 at 15:53 Approved by: Kris Andrea M.D. on 07/01/2023 at 15:57 Chest x-ray: Radiologist's Impression: [address] [address] XRay Report Signed Patient: Aleena Judge MR#: [id number] : 1970 Acct:[id number] Age/Sex: 53 / F Date of Service: 07/01/23 Loc: ED Accession Number: [id number] Procedure: XR chest 1V Ordering Provider: El Guzman MD PROCEDURE: XR CHEST 1V INDICATIONS: suspected sepsis TECHNIQUE: One view of the chest was acquired. COMPARISON: [facility], CR, XR CHEST 1V, 04/17/2023, 21:17. FINDINGS: Surgical changes and devices: ACDF. Lungs and pleura: Lungs are clear. No pleural effusions or pneumothorax. Mediastinum: Mediastinal contours appear normal. Heart size is normal. Bones and chest wall: No suspicious bony lesions. Overlying soft tissues appear unremarkable. IMPRESSION: Portable chest within normal limits for age. Dictated by: Kris Andrea M.D. on 07/01/2023 at 15:29 Approved by: Kris Andrea M.D. on 07/01/2023 at 15:29 [facility] Narrative Medical decision making narrative: Patient is postop day 7 status post ventral hernia repair. Patient has extensive history of liver failure and cirrhosis and ascites. Patient states last night she felt bulging at her ventral hernia repair site with tissue going through the stitches. No fever chills. No nausea or vomiting. Wound is clean but there is tissue extruding from the stitches After history and exam CBC CMP lactic acid CT abdomen pelvis normal saline surgical consult [facility] CC: Surgical wound problem Complicating co-morbidities: Liver failure ascites Data collected from: Patient Medical records reviewed: Surgical visit 7 days ago Differential considered: Includes but not limited to dehiscence Exam documented above, pertinent findings include: Intra-abdominal tissue dehiscence Lab Test results independently reviewed as above. Pertinent findings: WBC 6.6 hemoglobin 11 hematocrit 32 PT 14.6 INR 1.3 PTT 31 sodium baseline at 122 potassium 4.7 bicarb 18 creatinine 1.29 GFR 49 lactic acid 3.7 AST 67 ALT 47 total bilirubin 1.6 lipase 324 procalcitonin 0.24 Imaging studies independently reviewed: CT abdomen pelvis large ventral hernia containing fat and nonobstructed small bowel. Focus of herniated fat extending along the anterior surface of the hernia sac measuring 2 x 1 cm Chest x-ray no acute finding Consultations: 4:[address] Ellis, surgeon, recommends establishing medical admission and if possible for her for liver management otherwise will have to transfer patient out. 4:45 p.m.. Spoke with [facility] Dr. Sandhu, she indicates there is no indication to transfer patient for GI services. This can be managed from Internal Medicine hospitalist services. I did review with her laboratory studies of patient. They are not concerning at this time. They are stable. There is no intervention for GI. She can give suggestions for dietary, other than that no interventions required or transfer needed for GI services. 5:00 p.m.. Spoke with hospitalist here at [facility] dr zavala, he will talk to Dr. Ellis as well as Dr. Sandhu 5:[address] ellis in er dept to see pt Treatments: Normal saline Zosyn morphine Zofran Re-evaluations: 4:14 p.m.. Spoke with patient, mother at bedside, friend at bedside, at this time uncertain what facility she will be able to go to. We do not have GI here. She gets her care at [facility]. She would like to go to [place] and we will try [place] as well as [place] as well as [facility]. She does understand the uncertainty of where a bed would be available and specialty services that can take her. However, I will call GI services as well as hospitalist here for potential admission here Discussion: Diagnosis: Wound dehiscence, chronic liver failure 6:00 p.m.. Megan: Sign out to Dr Acuña at this time hospitalist and general surgeon discussing for admission or transfer. I have already spoken with GI services <Umang Acuña DO - Last Filed: 07/02/23 01:30> Lab Data Labs: Lab Results 07/01/23 07/01/23 Range/Units 14:47 16:52 WBC 6.6 (4.5-11.0) X10^3/uL RBC 3.58 L (4.0-5.2) X10^6/uL Hgb 11.0 L (12.0-16.0) g/dL Hct 32.2 L (36-46) % MCV 89.9 D (80-100) fL MCH 30.7 (26-34) PG MCHC 34.1 (30-36) % RDW 17.5 H (11.6-14.8) % Plt Count 301 (150-400) X10^3/uL Neut % (Auto) 90.6 H (50-75) % Lymph % (Auto) 3.7 L (25-40) % [place] % (Auto) 4.5 (3-14) % Eos % (Auto) 0.8 L (2-4) % Baso % (Auto) 0.4 (0-2) % Neut # (Auto) 5900 (8808-4461) /uL Lymph # (Auto) 200 L (6280-8830) /uL [place] # (Auto) 300 (0-900) /uL Eos # (Auto) 100 (0-450) /uL Baso # (Auto) 0 (0-100) /uL PT 14.6 H (10.1-12.7) SECONDS INR 1.3 (0.9-1.3) APTT 31 (26-36) SECONDS Sodium 122 L (137-145) mmol/L Potassium 4.7 (3.4-5.1) mmol/L Chloride 90 L (98-107) mmol/L Carbon Dioxide 18 L (22-32) mmol/L BUN 34 H (7-17) mg/dL Creatinine 1.29 H (0.52-1.04) mg/dL Estimated GFR 49 L (>60) mL/min BUN/Creatinine Ratio 26.4 H (6-22) Glucose 127 H (70-100) mg/dL Lactate 3.7 H 2.1 (0.7-2.1) mmol/L Calcium 9.7 (8.4-10.2) mg/dL Total Bilirubin 1.6 H (0.2-1.3) mg/dL AST 67 H (14-36) IU/L ALT 47 H (<35) IU/L Alkaline Phosphatase 193 H (38-126) U/L Total Protein 7.8 (6.3-8.2) g/dL Albumin 4.1 (3.5-5.0) g/dL Globulin 3.7 (1.7-4.1) g/dL Albumin/Globulin Ratio 1.1 (1.0-2.8) Lipase 324 H (23-300) U/L Procalcitonin 0.24 (<0.5) ng/mL [facility] Narrative Medical decision making narrative: Patient is postop day 7 status post ventral hernia repair. Patient has extensive history of liver failure and cirrhosis and ascites. Patient states last night she felt bulging at her ventral hernia repair site with tissue going through the stitches. No fever chills. No nausea or vomiting. Wound is clean but there is tissue extruding from the stitches After history and exam CBC CMP lactic acid CT abdomen pelvis normal saline surgical consult [facility] CC: Surgical wound problem Complicating co-morbidities: Liver failure ascites Data collected from: Patient Medical records reviewed: Surgical visit 7 days ago Differential considered: Includes but not limited to dehiscence Exam documented above, pertinent findings include: Intra-abdominal tissue dehiscence Lab Test results independently reviewed as above. Pertinent findings: WBC 6.6 hemoglobin 11 hematocrit 32 PT 14.6 INR 1.3 PTT 31 sodium baseline at 122 potassium 4.7 bicarb 18 creatinine 1.29 GFR 49 lactic acid 3.7 AST 67 ALT 47 total bilirubin 1.6 lipase 324 procalcitonin 0.24 Imaging studies independently reviewed: CT abdomen pelvis large ventral hernia containing fat and nonobstructed small bowel. Focus of herniated fat extending along the anterior surface of the hernia sac measuring 2 x 1 cm Chest x-ray no acute finding Consultations: 4:[address] Ellis, surgeon, recommends establishing medical admission and if possible for her for liver management otherwise will have to transfer patient out. 4:45 p.m.. Spoke with [facility] Dr. Sandhu, she indicates there is no indication to transfer patient for GI services. This can be managed from Internal Medicine hospitalist services. I did review with her laboratory studies of patient. They are not concerning at this time. They are stable. There is no intervention for GI. She can give suggestions for dietary, other than that no interventions required or transfer needed for GI services. 5:00 p.m.. Spoke with hospitalist here at [facility] dr zavala, he will talk to Dr. Ellis as well as Dr. Sandhu 5:[address] ellis in er dept to see pt Treatments: Normal saline Zosyn morphine Zofran Re-evaluations: 4:14 p.m.. Spoke with patient, mother at bedside, friend at bedside, at this time uncertain what facility she will be able to go to. We do not have GI here. She gets her care at [facility]. She would like to go to [place] and we will try [place] as well as [place] as well as [facility]. She does understand the uncertainty of where a bed would be available and specialty services that can take her. However, I will call GI services as well as hospitalist here for potential admission here Discussion: Diagnosis: Wound dehiscence, chronic liver failure 6:00 p.m.. Megan: Sign out to Dr Acuña at this time hospitalist and general surgeon discussing for admission or transfer. I have already spoken with GI services [[id number]] (Domenico) Patient received in sign out from [Megan]. I have reviewed the clinical course and performed an independent history and physical exam. Dr. العلي has seen the patient at the bedside and placed mitesh and suggest that she is appropriate for discharge and can follow-up in 3 weeks. Please see his note for details Discharge Plan Departure Patient Disposition: Home Clinical Impression: Abdominal wound dehiscence Qualifiers: Encounter type: initial encounter Qualified Code(s): T81.30XA - Disruption of wound, unspecified, initial encounter Chronic hepatic failure Qualifiers: Hepatic coma status: without hepatic coma Qualified Code(s): K72.10 - Chronic hepatic failure without coma Instructions: DI for Wound Dehiscence Activity Restrictions/Additional Instructions: *You have been diagnosed with [dehiscence of abdominal skin] *What to do: *Please continue to take your regular medications as directed. [ ] New medication prescriptions sent to your pharmacy: [ ] [ ] New medication written as a paper prescription [ ] No new medications given *Please follow up with Dr. Ellis at [facility] in 3 weeks. Please call the office tomorrow *If you do not have a primary care provider please contact the [facility] Resource line at [phone]. They will ask some questions about your medical history and help get you set up with a doctor in the community. *Return to Emergency Department if you should have any new, worsening or concerning symptoms, such as [fever greater than 101 F, shaking chills, worsening pain, persistent vomiting or other bothersome symptoms] Prescriptions: No Action magnesium 200 mg tablet 400 mg PO DAILY ferrous gluconate 324 mg (38 mg iron) tablet 324 mg PO .QOD furosemide 40 mg tablet 80 mg PO BID Qty: 90 3RF spironolactone 100 mg tablet 200 mg PO BID trazodone 50 mg tablet 50 mg PO BEDTIME PRN (Reason: insomnia) Qty: 30 3RF lidocaine 5 % adhesive patch,medicated 1 patch topical DAILY Qty: 30 2RF Rx Instructions: leave on most painful area for up to 12 hrs calcium carbonate-vitamin D3 [Calcium 600 with Vitamin D3] 600 mg(1,500mg) -500 unit capsule 1 cap PO DAILY multivitamin with minerals [Hair,Skin and Nails] Tablet 1 tab PO DAILY lactulose 10 gram/15 mL solution 30 ml PO DAILY omeprazole 40 mg capsule,delayed release(DR/EC) 40 mg PO DAILY potassium chloride 20 mEq tablet extended release 20 meq PO DAILY Referrals: Stacy Mittal MD [Primary Care Provider] - Stand Alone Forms: Patient Portal/API
[2023-07-01 16:46] LABS: Reflexed Lactate in 2 Hours Y
[2023-07-01 17:12] LABS: Lactate 2HR (Lactic Acid Rflx) 2.1 mmol/L (0.7-2.1)
--- NOTE | 2023-07-01 18:09 | PC.NURSE ---
After pt ambulated to bathroom incision began draining clear fluid. incision appears well approximated and covered 4x4 dampened with saline. pt denies pain at this time. pt ambulated to bathroom with steady gait.
--- NOTE | 2023-07-01 19:36 | PM.CALLCOV.1 ---
Call Coverage Note Note Date of Patient Contact: 07/01/23 Time of Patient Contact: 19:36 Narrative of Care Provided: 53-year-old woman with end-stage liver disease presents to the emergency department with complaint of an abdominal wound. One week ago she had bowel eroding through her skin near the umbilicus was taken to the operating room where she underwent incision and drainage of the wound and closure. There was a large fascial defect which could not be closed, the wound was excised and the skin was closed. Today she has a small amount of omentum protruding between the interrupted sutures no bowel. CT abdomen pelvis was performed which is largely unremarkable. Afebrile white blood cell count 7. She did not have her routine paracentesis last week typically she has approximately 15 L removed per week. I explained to the patient and her mother that this wound has a moderate chance of failure to heal given her significant liver disease. I do not think there is any reasonable surgical option for revision. The wound was prepped with Betadine the omentum was returned to the abdomen and then the skin was reapproximated where it was loose with mitesh. She will follow up in 2-3 weeks' time in the surgical clinic for removal of sutures. She needs to maintain her routine paracentesis if this wound is going to heal. She can apply gauze dressing to the wound and change as needed.
== END 2023-07-01 19:36 | disposition home or self-care (01) ==
PROVIDERS: Emergency Medicine; Emergency Provider Emergency Medicine; PCP Student in an Organized Health Care Education/Training Program
DX: T81.30XA Disruption of wound, unspecified, initial encounter (principal); K72.10 Chronic hepatic failure without coma; Z79.899 Other long term (current) drug therapy
CPT/HCPCS: 36415; 71045; 74177; 80053; 81003; 81025; 83605; 83690; 84145; 85025; 85610; 85730; 87040; 96361; 96374; 96375; 99284; J2270; J2405; Q9967